=== PATIENT | male | born 1940 ===

== ENCOUNTER 2019-08-05 09:58 | Inpatient (IN) | payer OTHER ==
[2019-08-05] MEDS ORDERED: CEFTRIAXONE 1,000 MG in DEXTROSE 5%-WATER - 50 ML IVPB ONE (10:40)
[2019-08-05] MEDS ORDERED: CLINDAMYCIN IVPB 300 MG in DEXTROSE 5%-WATER - 48 ML IVPB ONE (10:40)
--- NOTE | 2019-08-05 11:18 | PDOC ---
Documentation entered by Serene Braun SCRIBE, acting as scribe for Yobany Avila MD. Yobany Avila MD: This documentation has been prepared by the Aparna walker Nirvannie, SCRIBE, under my direction and personally reviewed by me in its entirety. I confirm that the documentation accurately reflects all work, treatment, procedures, and medical decision making performed by me. History of Present Illness - General Chief Complaint: Shortness of Breath Stated Complaint: SENT BY PMD LUNG ABSCESS History Source: Patient, Family (Son.), Primary Care Provider (Dr. Narayan) Exam Limitations: No Limitations - History of Present Illness Initial Comments: 08/05/19 10:56 The patient is a 79 year old male, with a significant past medical history of DM , HTN, hypothyroidism, and recurrent pneumonia (last treated 1 month ago), who presents to the emergency department for abnormal CT scan. As per PCP Dr. Narayan , pt had CT chest 2 weeks ago demonstrating possible abscess. While in the ED, son notes intermittent cough but no acute complaints today. He denies any recent fevers, chills, headache or dizziness. No hemoptysis. He denies any recent nausea, vomit, diarrhea or constipation. He denies any recent chest pain or shortness of breath. He denies any recent dysuria, frequency, urgency or hematuria. PCP notes that pt recently traveled to [place] and has had recent weight loss. Allergies: [facility] Primary Care Physician: Catalina Atwood Past History - Past Medical History Allergies/Adverse Reactions: Allergies Allergy/AdvReac Type Severity Reaction Status Date / Time No Known Allergies Allergy Verified 08/05/19 10:09 Home Medications: Ambulatory Orders Aspirin [Aspirin EC] 81 mg PO DAILY 08/05/19 Diclofenac Sodium 50 mg PO DAILY 08/05/19 Ferrous Sulfate [Iron] 325 mg PO DAILY 08/05/19 Levothyroxine Sodium [Levoxyl] 50 mcg PO DAILY 08/05/19 Losartan Potassium 50 mg PO DAILY 08/05/19 Metoprolol Succinate 25 mg PO DAILY 08/05/19 Multivitamin [Multiple Vitamins] 1 each PO DAILY 08/05/19 Promethazine HCl 6.25 mg PO QID 08/05/19 metFORMIN HCL [Metformin ER Osmotic] 1,000 mg PO DAILY 08/05/19 COPD: No Diabetes: Yes HTN: Yes Thyroid Disease: Yes - Psycho Social/Smoking Cessation Hx Smoking History: Never smoked Information on smoking cessation initiated: No Hx Alcohol Use: No Drug/Substance Use Hx: No Review of Systems - Review of Systems Able to Perform ROS?: Yes Comments:: 08/05/19 11:14 GENERAL/CONSTITUTIONAL: No fever or chills. No weakness. HEAD, EYES, EARS, NOSE AND THROAT: No change in vision. No ear pain or discharge. No sore throat. CARDIOVASCULAR: No chest pain, no shortness of breath, no loss of consciousness RESPIRATORY: +Intermittent cough. No wheezing, or hemoptysis. GASTROINTESTINAL: No nausea, vomiting, diarrhea or constipation. GENITOURINARY: No dysuria, frequency, or change in urination. MUSCULOSKELETAL: No joint or muscle swelling or pain. No neck or back pain. SKIN: No rash NEUROLOGIC: No vertigo, no change in strength/sensation. ENDOCRINE: No increased thirst. No abnormal weight change. HEMATOLOGIC/LYMPHATIC: No anemia, easy bleeding, or history of blood clots. ALLERGIC/IMMUNOLOGIC: No hives or skin allergy. All Other Systems: Reviewed and Negative *Physical Exam - Vital Signs Last Vital Signs Temp Pulse Resp BP Pulse Ox 97.6 F 108 H 18 178/72 H 99 08/05/19 10:06 08/05/19 10:06 08/05/19 10:06 08/05/19 10:06 08/05/19 10:06 - Physical Exam Comments: 08/05/19 11:15 GENERAL: Awake, alert, and fully oriented, in no acute distress. HEAD: No signs of trauma EYES: PERRLA, EOMI, sclera anicteric, conjunctiva clear ENT: Auricles normal inspection, hearing grossly normal, nares patent, oropharynx clear without exudates. Moist mucosa NECK: Nontender, no stepoffs, Normal ROM, supple, no lymphadenopathy, JVD, or masses LUNGS: + R sided rhonchi HEART: Regular rate and rhythm, normal S1 and S2, no murmurs, rubs or gallops ABDOMEN: Soft, nontender, normoactive bowel sounds. No guarding, no rebound. No masses EXTREMITIES: Normal range of motion, no edema. No clubbing or cyanosis. No cords, erythema, or tenderness NEUROLOGICAL: Cranial nerves II through XII intact. 5/5 strength and sensation in all extremities, Normal speech, normal gait, normal cerebellar function SKIN: Warm, Dry, normal turgor, no rashes or lesions noted. ED Treatment Course - LABORATORY CBC & Chemistry Diagram: 08/05/19 10:55 08/05/19 10:55 Medical Decision Making - Medical Decision Making 08/05/19 11:20 79 M with abnormal outpt CT, concerning for possible lung abscess. Pt also noted to have recent weight loss and travel to [place]. Will need to r/o TB. - Labs, cultures, AFB - Repeat CT chest - Empiric abx - ID, pulm consult Discharge - Discharge Information Problems reviewed: Yes Clinical Impression/Diagnosis: Cavitary lesion of lung - Admission Yes - Follow up/Referral Referrals: Evelyn Narayan MD [Primary Care Provider] - - Patient Discharge Instructions - Post Discharge Activity
[2019-08-05 11:42] LABS: EOS % 4.4 % (0-4.5); HEMATOCRIT 37.3 % (35.4-49); HEMOGLOBIN 11.9 GM/dL (11.7-16.9); LYMPH % 15.5 % (8-40); MCH 24.7 pg (25.7-33.7); MEAN CELL VOLUME 77.1 fl (80-96); MEAN PLT VOLUME 8.6 fl (7.5-11.1); MONO % 7.7 % (3.8-10.2); NEUT % 71.4 % (42.8-82.8); PLATELET COUNT 324 K/MM3 (134-434); RBC 4.84 M/mm3 (4.00-5.60); RDW 20.4 % (11.9-15.9); WHITE BLOOD COUNT 10.1 K/mm3 (4.0-10.0)
--- NOTE | 2019-08-05 12:16 | EKG ---
Test Reason : Blood Pressure : / mmHG Vent. Rate : 097 BPM Atrial Rate : 097 BPM P-R Int : 140 ms QRS Dur : 078 ms QT Int : 328 ms P-R-T Axes : 060 -41 064 degrees QTc Int : 416 ms NORMAL SINUS RHYTHM LEFT AXIS DEVIATION ABNORMAL ECG NO PREVIOUS ECGS AVAILABLE Confirmed by LISA MADRID, LAURA ([id number]) on 08/05/2019 12:16:44 PM Referred By: Confirmed By:LAURA GONZALEZ MD
[2019-08-05 12:22] LABS: ALBUMIN 3.4 g/dl (3.4-5.0); BILIRUBIN,TOTAL 0.2 mg/dL (0.2-1); BLOOD UREA NITROGEN 29.4 mg/dL (7-18); CALCIUM 10.7 mg/dL (8.5-10.1); CREATININE 1.2 mg/dL (0.55-1.3); N-TERMINAL BNP 194.6 pg/ml (5-450); TOT PROT 7.8 g/dl (6.4-8.2)
[2019-08-05] MEDS ORDERED: CEFTRIAXONE 1 GM/50 ML BAG ONE (12:22)
[2019-08-05] MEDS ORDERED: CLINDAMYCIN PHOSPHATE 600 MG/4 ML VIAL ONE (13:01)
[2019-08-05] MEDS ORDERED: SODIUM CHLORIDE 1,000 ML IV STA (13:29)
--- NOTE | 2019-08-05 17:40 | HP ---
Admitting History and Physical - Primary Care Physician PCP: Evelyn Narayan - Admission Chief Complaint: cough History of Present Illness: was treated for right middle/lower lobe pna with ceftin and zithromax in May 2019 came back to office for persistent cough-chest ct showed cavitation was sent to er for evaluation and treatment History Source: Patient, Family Member Limitations to Obtaining History: Language Barrier - Past Medical History Cardiovascular: Yes: HTN, Hyperlipdemia Endocrine: Yes: Diabetes Mellitus, Hypothyroidism - Smoking History Smoking history: Never smoked - Alcohol/Substance Use Hx Alcohol Use: No - Social History Usual Living Arrangement: Yes: With Child ADL: Independent History of Recent Travel: Yes ([place]) Home Medications - Allergies Allergies/Adverse Reactions: Allergies Allergy/AdvReac Type Severity Reaction Status Date / Time No Known Allergies Allergy Verified 08/05/19 10:09 - Home Medications Home Medications: Ambulatory Orders Aspirin [Aspirin EC] 81 mg PO DAILY 08/05/19 Diclofenac Sodium 50 mg PO DAILY 08/05/19 Ferrous Sulfate [Iron] 325 mg PO DAILY 08/05/19 Levothyroxine Sodium [Levoxyl] 50 mcg PO DAILY 08/05/19 Losartan Potassium 50 mg PO DAILY 08/05/19 Metoprolol Succinate 25 mg PO DAILY 08/05/19 Multivitamin [Multiple Vitamins] 1 each PO DAILY 08/05/19 Promethazine HCl 6.25 mg PO QID 08/05/19 metFORMIN HCL [Metformin ER Osmotic] 1,000 mg PO DAILY 08/05/19 Family Medical History Family History: Unremarkable Review of Systems - Review of Systems Constitutional: reports: Loss of Appetite (recently got new dentures). denies: Chills, Fever HENT: reports: No Symptoms Neck: reports: No Symptoms Cardiovascular: reports: No Symptoms Respiratory: reports: Cough. denies: Hemoptysis, SOB on Exertion, Wheezing Gastrointestinal: reports: No Symptoms Genitourinary: reports: No Symptoms Integumentary: reports: No Symptoms Neurological: reports: No Symptoms Endocrine: reports: No Symptoms Hematology/Lymphatic: reports: No Symptoms Psychiatric: reports: No Symptoms Physical Examination Vital Signs: Vital Signs Temperature 97.6 F 08/05/19 10:06 Pulse Rate 108 H 08/05/19 10:06 Respiratory Rate 18 08/05/19 10:06 Blood Pressure 178/72 H 08/05/19 10:06 O2 Sat by Pulse Oximetry (%) 99 08/05/19 10:06 Constitutional: Yes: Well Nourished, Calm Eyes: Yes: EOM Intact HENT: Yes: WNL, Other (hard of hearing) Neck: Yes: WNL Cardiovascular: Yes: WNL, Regular Rate and Rhythm Respiratory: Yes: Rhonchi (scattered) Gastrointestinal: Yes: Normal Bowel Sounds, Soft ...Rectal Exam: Yes: WNL Renal/: Yes: WNL Musculoskeletal: Yes: WNL Extremities: Yes: WNL Edema: No Peripheral Pulses WNL: Yes Neurological: Yes: WNL ...Motor Strength: WNL Psychiatric: Yes: WNL Labs: CBC, BMP 08/05/19 10:55 08/05/19 10:55 lactic acid 4.7 Imaging - Results Cat Scan: Report Reviewed Problem List - Problems (1) Diabetes mellitus Code(s): E11.9 - TYPE 2 DIABETES MELLITUS WITHOUT COMPLICATIONS Qualifiers: Diabetes mellitus type: type 2 Diabetes mellitus regional intermodal truck driver insulin use: without regional intermodal truck driver use Diabetes mellitus complication status: without complication Qualified Code(s): E11.9 - Type 2 diabetes mellitus without complications (2) HTN (hypertension) Code(s): I10 - ESSENTIAL (PRIMARY) HYPERTENSION Qualifiers: Hypertension type: essential hypertension Qualified Code(s): I10 - Essential (primary) hypertension (3) Hyperlipidemia Code(s): E78.5 - HYPERLIPIDEMIA, UNSPECIFIED Qualifiers: Hyperlipidemia type: unspecified Qualified Code(s): E78.5 - Hyperlipidemia , unspecified (4) Hypothyroidism Code(s): E03.9 - HYPOTHYROIDISM, UNSPECIFIED Qualifiers: Hypothyroidism type: acquired Qualified Code(s): E03.9 - Hypothyroidism, unspecified (5) Cavitary lesion of lung Code(s): J98.4 - OTHER DISORDERS OF LUNG Assessment/Plan caviatating lung disease abscess vs tb vs malignancy isolation for tb sputum culture sputum afb may need bronch if not sputum production iv xzosyn for now id and pulm referral requested
[2019-08-05] MEDS ORDERED: PIPERACILLIN/TAZOB 3.375 GM 3.375 GM in DEXTROSE 5%-WATER - 50 ML IVPB SCH (18:00)
[2019-08-05] MEDS ORDERED: PIPERACILLIN/TAZOB 3.375 GM 3.375 GM/50 ML BAG IVPB ONE (18:21)
[2019-08-05] MEDS: PIPERACILLIN/TAZOB 3.375 GM 3.375 GM in DEXTROSE 5%-WATER - 50 ML IVPB SCH (18:31)
[2019-08-06] MEDS ORDERED: PIPERACILLIN/TAZOBACTAM 3.375 GM VIAL IVPB ONE ×2 (01:42→09:48)
[2019-08-06] MEDS ORDERED: DEXTROSE 5%-WATER - 50 ML IVPB ONE ×2 (01:43→09:48)
[2019-08-06] MEDS: PIPERACILLIN/TAZOB 3.375 GM 3.375 GM in DEXTROSE 5%-WATER - 50 ML IVPB SCH ×2 (02:21→09:54)
[2019-08-06] MEDS: LEVOTHYROXINE NA 50 MCG TABLET (FP) PO SCH (06:14)
[2019-08-06 09:12] LABS: BASO % 1.3 % (0-2.0); HEMATOCRIT 36.6 % (35.4-49); HEMOGLOBIN 11.8 GM/dL (11.7-16.9); LYMPH % 17.3 % (8-40); MCH 24.4 pg (25.7-33.7); MCHC 32.2 g/dl (32.0-35.9); MEAN CELL VOLUME 75.9 fl (80-96); MEAN PLT VOLUME 8.5 fl (7.5-11.1); MONO % 7.2 % (3.8-10.2); NEUT % 67.2 % (42.8-82.8); PLATELET COUNT 334 K/MM3 (134-434); RBC 4.83 M/mm3 (4.00-5.60); RDW 19.7 % (11.9-15.9); WHITE BLOOD COUNT 8.3 K/mm3 (4.0-10.0)
[2019-08-06] MEDS ORDERED: PT OWN MED DRAWER 7, Y5N ONE (09:48)
--- NOTE | 2019-08-06 09:48 | PN ---
Progress Note (short form) - Note Progress Note: admitted for cough, cavitating lung lesion/infiltrates offers no complaints CBC, BMP 08/06/19 07:00 08/06/19 07:00 Vital Signs Period Temp Pulse Resp BP Sys/Garces Pulse Ox Last 24 Hr 97.7 F-99.1 F 81-88 18-20 146-166/73-99 97-98 s1s2 rrr lungs coarse bilateral bs abd soft no edema r/o TB, r/o malignancy sputum cultures/afb ? bronch zosyn for now Problem List - Problems (1) Diabetes mellitus Code(s): E11.9 - TYPE 2 DIABETES MELLITUS WITHOUT COMPLICATIONS Qualifiers: Diabetes mellitus type: type 2 Diabetes mellitus intermediate manager insulin use: without intermediate manager use Diabetes mellitus complication status: without complication Qualified Code(s): E11.9 - Type 2 diabetes mellitus without complications (2) HTN (hypertension) Code(s): I10 - ESSENTIAL (PRIMARY) HYPERTENSION Qualifiers: Hypertension type: essential hypertension Qualified Code(s): I10 - Essential (primary) hypertension (3) Hyperlipidemia Code(s): E78.5 - HYPERLIPIDEMIA, UNSPECIFIED Qualifiers: Hyperlipidemia type: unspecified Qualified Code(s): E78.5 - Hyperlipidemia , unspecified (4) Hypothyroidism Code(s): E03.9 - HYPOTHYROIDISM, UNSPECIFIED Qualifiers: Hypothyroidism type: acquired Qualified Code(s): E03.9 - Hypothyroidism, unspecified (5) Cavitary lesion of lung Code(s): J98.4 - OTHER DISORDERS OF LUNG
[2019-08-06] MEDS: metoPROLOL SUCCINATE 25 MG TAB.SR.24H (FP) PO SCH (09:54)
[2019-08-06] MEDS: MULTIVITAMINS (DAILY MVI) TABLET (FP) PO SCH (09:54)
[2019-08-06] MEDS: LOSARTAN POTASSIUM 50 MG TABLET (FP) PO SCH (09:54)
[2019-08-06 09:59] LABS: ALBUMIN 3.3 g/dl (3.4-5.0); BILIRUBIN,TOTAL 0.3 mg/dL (0.2-1); BLOOD UREA NITROGEN 16.7 mg/dL (7-18); CALCIUM 10.1 mg/dL (8.5-10.1); CREATININE 1.1 mg/dL (0.55-1.3); POTASSIUM 4.4 mmol/L (3.5-5.1); TOT PROT 7.7 g/dl (6.4-8.2)
--- NOTE | 2019-08-06 13:26 | CON.PULM ---
Consult Consult Specialty:: PULMONARY Referred by:: Dr Orellana Reason for Consultation:: lung mass - History of Present Illness Chief Complaint: abnormal CT History of Present Illness: 79yo male with h/o HTN, DM, hypothyroidism who was sent from his PMD for an abnormal CT chest. He was treated for pneumonia about a month ago. Denies fevers , chills or sweats. Pt is from [place] with recent travel. Does report recent weight loss. CT chest showing RLL cavitary lesion as well as lung nodules. He is a never smoker. - History Source History Provided By: Patient, Family Member, Medical Record Limitations to Obtaining History: Language Barrier - Past Medical History Cardio/Vascular: Yes: HTN, Hyperlipdemia Endocrine: Yes: Diabetes Mellitus, Hypothyroidism - Alcohol/Substance Use Hx Alcohol Use: No - Smoking History Smoking history: Never smoked - Social History ADL: Independent History of Recent Travel: Yes ([facility]) Home Medications - Allergies Allergies/Adverse Reactions: Allergies Allergy/AdvReac Type Severity Reaction Status Date / Time No Known Allergies Allergy Verified 08/05/19 10:09 - Home Medications Home Medications: Ambulatory Orders Aspirin [Aspirin EC] 81 mg PO DAILY 08/05/19 Diclofenac Sodium 50 mg PO DAILY 08/05/19 Ferrous Sulfate [Iron] 325 mg PO DAILY 08/05/19 Levothyroxine Sodium [Levoxyl] 50 mcg PO DAILY 08/05/19 Losartan Potassium 50 mg PO DAILY 08/05/19 Metoprolol Succinate 25 mg PO DAILY 08/05/19 Multivitamin [Multiple Vitamins] 1 each PO DAILY 08/05/19 Promethazine HCl 6.25 mg PO QID 08/05/19 metFORMIN HCL [Metformin ER Osmotic] 1,000 mg PO DAILY 08/05/19 Review of Systems - Review of Systems Constitutional: reports: Unintentional Wgt. Loss. denies: Chills, Fever Eyes: denies: Recent Change in Vision HENT: denies: Nasal Congestion, Throat Pain Neck: denies: Stiffness, Tenderness Cardiovascular: denies: Chest Pain, Shortness of Breath Respiratory: reports: Cough. denies: Hemoptysis, Wheezing Gastrointestinal: denies: Abdominal Pain, Nausea, Vomiting Genitourinary: denies: Dysuria, Hematuria Neurological: denies: Dizziness, Headache Endocrine: denies: Unexplained Weight Loss Physical Exam Vital Sings: Vital Signs Temperature 98.1 F 08/06/19 08:40 Pulse Rate 85 08/06/19 08:40 Respiratory Rate 20 08/06/19 08:40 Blood Pressure 150/77 08/06/19 08:40 O2 Sat by Pulse Oximetry (%) 98 08/05/19 21:00 Constitutional: Yes: Calm Eyes: Yes: Conjunctiva Clear, EOM Intact HENT: Yes: Atraumatic, Normocephalic Neck: Yes: Supple, Trachea Midline Cardiovascular: Yes: Regular Rate and Rhythm Respiratory: Yes: Diminished (decreased breath sounds at the bases) ...Clubbing: No Gastrointestinal: Yes: Normal Bowel Sounds, Soft. 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
--- NOTE | 2019-08-06 14:59 | CON.ID ---
Consult Reason for Consultation:: r/o lung abscess - History of Present Illness Chief Complaint: abnormal lung CT, hx of pneumonia History of Present Illness: Mr. Bueno is a 79y/o Tamazight-speaking male with hx of pneumonia (May 2019 and 3-4 months prior), HTN, HLD, DM, and hypothyroidism who presents following right pulmonary cavitary lesion. Pt was diagnosed with RML and RLL pneumonia and treated with ceftin and zithromax in May and f/u CT showed cavitary lesion. The patient reports having a very mild, non-productive cough x 5 months that he attributes to poorly-fitting dentures. He also reports ~10 lb weight loss from this as well because he is unable to eat. Pt denies fever, chills, fatigue, shortness of breath, wheezing, myalgias, n/v/d. Pt lives at home with his son. His within the last year from ILD. Per son, there was no known reason for ILD. Pt worked in [employer] department with no exposure to dangerous chemicals. His recent travel includes going to [place] following 's passing. He had URI symptoms while in [place] but was not significant. - History Source History Provided By: Patient, Family Member Limitations to Obtaining History: Other (spoke with patient and chief nursing officer in person and with son over the phone) - Past Medical History Cardio/Vascular: Yes: HTN, Hyperlipdemia Endocrine: Yes: Diabetes Mellitus, Hypothyroidism - Past Surgical History Past Surgical History: Yes: None - Alcohol/Substance Use Hx Alcohol Use: No - Smoking History Smoking history: Never smoked - Social History Usual Living Arrangement: With Child ADL: Independent History of Recent Travel: Yes ([place]) Home Medications - Allergies Allergies/Adverse Reactions: Allergies Allergy/AdvReac Type Severity Reaction Status Date / Time No Known Allergies Allergy Verified 08/05/19 10:09 - Home Medications Home Medications: Ambulatory Orders Aspirin [Aspirin EC] 81 mg PO DAILY 08/05/19 Diclofenac Sodium 50 mg PO DAILY 08/05/19 Ferrous Sulfate [Iron] 325 mg PO DAILY 08/05/19 Levothyroxine Sodium [Levoxyl] 50 mcg PO DAILY 08/05/19 Losartan Potassium 50 mg PO DAILY 08/05/19 Metoprolol Succinate 25 mg PO DAILY 08/05/19 Multivitamin [Multiple Vitamins] 1 each PO DAILY 08/05/19 Promethazine HCl 6.25 mg PO QID 08/05/19 metFORMIN HCL [Metformin ER Osmotic] 1,000 mg PO DAILY 08/05/19 Review of Systems - Review of Systems Constitutional: denies: Chills, Fever HENT: reports: Other (ill-fitting dentures) Respiratory: reports: Cough. denies: SOB, Wheezing Gastrointestinal: denies: Abdominal Pain, Diarrhea, Nausea, Vomiting Musculoskeletal: denies: Joint Pain, Muscle Pain Physical Exam Vital Signs: Vital Signs Temperature 98.1 F 08/06/19 08:40 Pulse Rate 85 08/06/19 08:40 Respiratory Rate 20 08/06/19 08:40 Blood Pressure 150/77 08/06/19 08:40 O2 Sat by Pulse Oximetry (%) 98 08/05/19 21:00 Constitutional: Yes: No Distress, Thin, Other (temporal wasting) Eyes: Yes: Conjunctiva Clear, EOM Intact HENT: Yes: Atraumatic, Normocephalic Neck: Yes: Supple, Trachea Midline Cardiovascular: Yes: Regular Rate and Rhythm. No: Murmur Respiratory: Yes: Wheezes (upper airways R>L) Gastrointestinal: Yes: Normal Bowel Sounds, Soft. No: Tenderness Neurological: Yes: Alert, Oriented Labs: CBC, BMP 08/06/19 07:00 08/06/19 07:00 Imaging - Results Cat Scan: Report Reviewed (thick-walled cavity in right hilar region (infectious /inflammatory vs neoplasm), diffuse nodules in right lower lobe which could be bronchial spread of the cavitary lesion), Image Reviewed Assessment/Plan Mr. Bueno is a 79y/o Tamazight-speaking male with hx of pneumonia (May 2019 -treated with ceftin and zithromax, and 3-4 months prior), HTN, HLD, DM, and hypothyroidism who presents following right pulmonary cavitary lesion on CT. Pt reports poorly fitting dentures with difficulty eating. Pt has traveled to [place] in the last year. He denies hx of TB. #aspiration pneumonia vs r/o TB -sputum cx- induce sputum production for sample -Quantiferon pending -empiric Unasyn
--- NOTE | 2019-08-06 16:36 | PN ---
Teaching Attending Note Name of Resident: Anisa Byrne ATTENDING PHYSICIAN STATEMENT I saw and evaluated the patient. I reviewed the resident's note and discussed the case with the resident. I agree with the resident's findings and plan as documented. SUBJECTIVE: tried to use the interpretor phone for [employer]- patient would not cooperate weight loss 10 pounds diabetes ill fitting dentures a trip to [facility] this past year nonproductive cough ceftin/zithromax for 7 days in may no fevers OBJECTIVE:alert nad Vital Signs Period Temp Pulse Resp BP Sys/Garces Pulse Ox Last 24 Hr 97.5 F-99.1 F 81-96 18-20 132-166/70-99 97-98 no thrush no adenopathyl cor-rrr lungs clear abd soft,nt ext no edema no rash CBC, BMP 08/06/19 07:00 08/06/19 07:00 blood cultures pending chest ct with cavitary and nodular lesions ASSESSMENT AND PLAN: abnormal chest ct-with cavitary and nodular lesions differential diagnosis- includes TB, aspiration pneumonia, and malignancy plan for quantiferon sputum afb by induction uasyn for aspiration history of diabetes will d/w PMD Problem List - Problems (1) Abnormal CT scan, chest Code(s): R93.89 - ABNORMAL FINDINGS ON DX IMAGING OF OTH BODY STRUCTURES (2) Cavitary lesion of lung Code(s): J98.4 - OTHER DISORDERS OF LUNG (3) Diabetes mellitus Code(s): E11.9 - TYPE 2 DIABETES MELLITUS WITHOUT COMPLICATIONS Qualifiers: Diabetes mellitus type: type 2 Diabetes mellitus moth exterminator insulin use: without moth exterminator use Diabetes mellitus complication status: without complication Qualified Code(s): E11.9 - Type 2 diabetes mellitus without complications
[2019-08-06] MEDS ORDERED: AMPICILLIN NA/SULBACTAM NA 1.5 GM VIAL ONE ×2 (16:55→20:45)
[2019-08-06] MEDS ORDERED: SODIUM CHLORIDE 100 ML IVPB ONE ×2 (16:55→20:45)
[2019-08-06] MEDS: AMPICILLIN NA/SULBACTAM NA 1.5 GM in SODIUM CHLORIDE 100 ML IVPB SCH ×2 (17:03→21:27)
[2019-08-07] MEDS ORDERED: AMPICILLIN NA/SULBACTAM NA 1.5 GM VIAL ONE ×4 (01:18→20:01)
[2019-08-07] MEDS ORDERED: SODIUM CHLORIDE 100 ML IVPB ONE ×4 (01:19→20:02)
[2019-08-07] MEDS: AMPICILLIN NA/SULBACTAM NA 1.5 GM in SODIUM CHLORIDE 100 ML IVPB SCH ×4 (02:12→21:20)
[2019-08-07] MEDS ORDERED: PT OWN MED DRAWER 7, Y5N ONE ×2 (05:54→09:33)
[2019-08-07] MEDS: LEVOTHYROXINE NA 50 MCG TABLET (FP) PO SCH (06:30)
[2019-08-07] MEDS ORDERED: SODIUM CHLORIDE FOR INHALATION 3 ML VIAL.NEB IH PRN (08:07)
--- NOTE | 2019-08-07 08:43 | PN ---
Progress Note (short form) - Note Progress Note: CBC, BMP 08/06/19 07:00 08/06/19 07:00 Vital Signs Period Temp Pulse Resp BP Sys/Garces Pulse Ox Last 24 Hr 97.5 F-98.4 F 83-96 20-20 132-150/70-79 No complaints, minimal sputum production s1s2 rrr lungs coarse bilateral bs abd soft no edema Active Medications Ampicillin Sodium/Sulbactam (Sodium 1.5 gm/ Sodium Chloride) 100 mls @ 200 mls/ hr IVPB Q6H-IV SHANTHI Last Admin: 08/07/19 02:12 Dose: 200 mls/hr Levothyroxine Sodium (Synthroid -) 50 mcg PO AM SHANTHI Last Admin: 08/07/19 06:30 Dose: 50 mcg Losartan Potassium (Cozaar -) 50 mg PO DAILY SHANTHI Last Admin: 08/06/19 09:54 Dose: 50 mg Metformin HCl (Glucophage Xr -) 1,000 mg PO AM SHANTHI Last Admin: 08/07/19 06:30 Dose: 1,000 mg Metoprolol Succinate (Toprol Xl -) 25 mg PO DAILY SHANTHI Last Admin: 08/06/19 09:54 Dose: 25 mg Multivitamins/Minerals/Vitamin C (Tab-A-Vit -) 1 tab PO DAILY SHANTHI Last Admin: 08/06/19 09:54 Dose: 1 tab Sodium Chloride (Normal Saline For Inhalation -) 3 ml IH Q6H PRN PRN Reason: COUGH r/o TB, r/o malignancy sputum cultures/afb ? bronch-i think patient is more amenable, will ask dr cavanaugh to talk to them over the weekend consult appreciated NIDDM hypothyrodism HTN cont home meds isolation Problem List - Problems (1) Diabetes mellitus Code(s): E11.9 - TYPE 2 DIABETES MELLITUS WITHOUT COMPLICATIONS Qualifiers: Diabetes mellitus type: type 2 Diabetes mellitus long term acute care registered nurse insulin use: without long term acute care registered nurse use Diabetes mellitus complication status: without complication Qualified Code(s): E11.9 - Type 2 diabetes mellitus without complications (2) HTN (hypertension) Code(s): I10 - ESSENTIAL (PRIMARY) HYPERTENSION Qualifiers: Hypertension type: essential hypertension Qualified Code(s): I10 - Essential (primary) hypertension (3) Hyperlipidemia Code(s): E78.5 - HYPERLIPIDEMIA, UNSPECIFIED Qualifiers: Hyperlipidemia type: unspecified Qualified Code(s): E78.5 - Hyperlipidemia , unspecified (4) Hypothyroidism Code(s): E03.9 - HYPOTHYROIDISM, UNSPECIFIED Qualifiers: Hypothyroidism type: acquired Qualified Code(s): E03.9 - Hypothyroidism, unspecified (5) Cavitary lesion of lung Code(s): J98.4 - OTHER DISORDERS OF LUNG
[2019-08-07] MEDS: metoPROLOL SUCCINATE 25 MG TAB.SR.24H (FP) PO SCH (09:39)
[2019-08-07] MEDS: LOSARTAN POTASSIUM 50 MG TABLET (FP) PO SCH (09:39)
[2019-08-07] MEDS: MULTIVITAMINS (DAILY MVI) TABLET (FP) PO SCH (09:39)
--- NOTE | 2019-08-07 13:49 | PN ---
Progress Note, Physician History of Present Illness: pulmonary alert,comfortable,nad. pt agrees to bronchoscopy - Current Medication List Current Medications: Active Medications Ampicillin Sodium/Sulbactam (Sodium 1.5 gm/ Sodium Chloride) 100 mls @ 200 mls/ hr IVPB Q6H-IV [facility] Last Admin: 08/07/19 09:38 Dose: 200 mls/hr Levothyroxine Sodium (Synthroid -) 50 mcg PO AM [facility] Last Admin: 08/07/19 06:30 Dose: 50 mcg Losartan Potassium (Cozaar -) 50 mg PO DAILY [facility] Last Admin: 08/07/19 09:39 Dose: 50 mg Metformin HCl (Glucophage Xr -) 1,000 mg PO AM [facility] Last Admin: 08/07/19 06:30 Dose: 1,000 mg Metoprolol Succinate (Toprol Xl -) 25 mg PO DAILY [facility] Last Admin: 08/07/19 09:39 Dose: 25 mg Multivitamins/Minerals/Vitamin C (Tab-A-Vit -) 1 tab PO DAILY [facility] Last Admin: 08/07/19 09:39 Dose: 1 tab Sodium Chloride (Normal Saline For Inhalation -) 3 ml IH Q6H PRN PRN Reason: COUGH - Objective Vital Signs: Vital Signs Temperature 98.1 F 08/07/19 08:30 Pulse Rate 90 08/07/19 08:30 Respiratory Rate 20 08/07/19 08:30 Blood Pressure 145/78 08/07/19 08:30 O2 Sat by Pulse Oximetry (%) 98 08/05/19 21:00 Constitutional: Yes: Calm, Thin Eyes: Yes: WNL HENT: Yes: WNL Neck: Yes: WNL Cardiovascular: Yes: Regular Rate and Rhythm, S1, S2 Respiratory: Yes: Diminished Gastrointestinal: Yes: Normal Bowel Sounds, Soft Extremities: Yes: WNL Edema: No Labs: CBC, BMP Problem List - Problems (1) Cavitary lesion of lung Code(s): J98.4 - OTHER DISORDERS OF LUNG (2) Diabetes mellitus Code(s): E11.9 - TYPE 2 DIABETES MELLITUS WITHOUT COMPLICATIONS Qualifiers: Diabetes mellitus type: type 2 Diabetes mellitus exterminator helper termite insulin use: without exterminator helper termite use Diabetes mellitus complication status: without complication Qualified Code(s): E11.9 - Type 2 diabetes mellitus without complications (3) HTN (hypertension) Code(s): I10 - ESSENTIAL (PRIMARY) HYPERTENSION Qualifiers: Hypertension type: essential hypertension Qualified Code(s): I10 - Essential (primary) hypertension (4) Hyperlipidemia Code(s): E78.5 - HYPERLIPIDEMIA, UNSPECIFIED Qualifiers: Hyperlipidemia type: unspecified Qualified Code(s): E78.5 - Hyperlipidemia , unspecified (5) Hypothyroidism Code(s): E03.9 - HYPOTHYROIDISM, UNSPECIFIED Qualifiers: Hypothyroidism type: acquired Qualified Code(s): E03.9 - Hypothyroidism, unspecified Assessment/Plan Assessment/Plan 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
--- NOTE | 2019-08-07 15:52 | PN ---
Progress Note (short form) - Note Progress Note: refusing induced sputum for AFB agreeable to bronch on Saturday Vital Signs Period Temp Pulse Resp BP Sys/Garces Pulse Ox Last 24 Hr 98.1 F-98.5 F 83-95 20-20 104-150/57-79 cor-rrr lungs clear CBC, BMP 08/06/19 07:00 08/06/19 07:00 Microbiology 08/05/19 10:55 Blood - Peripheral Venous Blood Culture - Preliminary NO GROWTH OBTAINED AFTER 48 HOURS, INCUBATION TO CONTINUE FOR 3 DAYS. 08/05/19 10:55 Blood - Peripheral Venous Blood Culture - Preliminary NO GROWTH OBTAINED AFTER 48 HOURS, INCUBATION TO CONTINUE FOR 3 DAYS. a/p cavitary/nodular infiltrates- on unasyn for aspiration quant pending sputum induction if patient permits bronchoscopy on Saturday afb isolation to continue Problem List - Problems (1) Abnormal CT scan, chest Code(s): R93.89 - ABNORMAL FINDINGS ON DX IMAGING OF OTH BODY STRUCTURES (2) Cavitary lesion of lung Code(s): J98.4 - OTHER DISORDERS OF LUNG (3) Diabetes mellitus Code(s): E11.9 - TYPE 2 DIABETES MELLITUS WITHOUT COMPLICATIONS Qualifiers: Diabetes mellitus type: type 2 Diabetes mellitus intermediate insulin use: without immunologist use Diabetes mellitus complication status: without complication Qualified Code(s): E11.9 - Type 2 diabetes mellitus without complications
[2019-08-08] MEDS ORDERED: AMPICILLIN NA/SULBACTAM NA 1.5 GM VIAL ONE ×4 (02:26→21:14)
[2019-08-08] MEDS ORDERED: SODIUM CHLORIDE 100 ML IVPB ONE ×4 (02:26→21:15)
[2019-08-08] MEDS: AMPICILLIN NA/SULBACTAM NA 1.5 GM in SODIUM CHLORIDE 100 ML IVPB SCH ×4 (02:44→21:46)
[2019-08-08] MEDS ORDERED: PT OWN MED DRAWER 7, Y5N ONE (06:12)
[2019-08-08] MEDS: LEVOTHYROXINE NA 50 MCG TABLET (FP) PO SCH (06:38)
[2019-08-08] MEDS: MULTIVITAMINS (DAILY MVI) TABLET (FP) PO SCH (09:25)
[2019-08-08] MEDS: metoPROLOL SUCCINATE 25 MG TAB.SR.24H (FP) PO SCH (09:25)
[2019-08-08] MEDS: LOSARTAN POTASSIUM 50 MG TABLET (FP) PO SCH (09:25)
[2019-08-08] MEDS ORDERED: INSULIN (NOVOLOG) ASPART 100 UNITS/ML 10ML VIAL ONE (09:43)
--- NOTE | 2019-08-08 14:31 | PN ---
Progress Note, Physician History of Present Illness: pulmonary alert,no distress. - Current Medication List Current Medications: Active Medications Ampicillin Sodium/Sulbactam (Sodium 1.5 gm/ Sodium Chloride) 100 mls @ 200 mls/ hr IVPB Q6H-IV [facility] Last Admin: 08/08/19 08:48 Dose: 200 mls/hr Levothyroxine Sodium (Synthroid -) 50 mcg PO AM [facility] Last Admin: 08/08/19 06:38 Dose: 50 mcg Losartan Potassium (Cozaar -) 50 mg PO DAILY [facility] Last Admin: 08/08/19 09:25 Dose: 50 mg Metformin HCl (Glucophage Xr -) 1,000 mg PO AM [facility] Last Admin: 08/08/19 06:38 Dose: 1,000 mg Metoprolol Succinate (Toprol Xl -) 25 mg PO DAILY [facility] Last Admin: 08/08/19 09:25 Dose: 25 mg Multivitamins/Minerals/Vitamin C (Tab-A-Vit -) 1 tab PO DAILY [facility] Last Admin: 08/08/19 09:25 Dose: 1 tab Sodium Chloride (Normal Saline For Inhalation -) 3 ml IH Q6H PRN PRN Reason: COUGH - Objective Vital Signs: Vital Signs Temperature 98.4 F 08/08/19 10:00 Pulse Rate 88 08/08/19 10:00 Respiratory Rate 20 08/08/19 10:00 Blood Pressure 134/69 08/08/19 10:00 O2 Sat by Pulse Oximetry (%) 96 08/08/19 09:00 Constitutional: Yes: Calm, Thin Eyes: Yes: WNL HENT: Yes: WNL Neck: Yes: WNL Cardiovascular: Yes: Regular Rate and Rhythm, S1, S2 Respiratory: Yes: Diminished Gastrointestinal: Yes: Normal Bowel Sounds, Soft Extremities: Yes: WNL Edema: No Problem List - Problems (1) Cavitary lesion of lung Code(s): J98.4 - OTHER DISORDERS OF LUNG (2) Diabetes mellitus Code(s): E11.9 - TYPE 2 DIABETES MELLITUS WITHOUT COMPLICATIONS Qualifiers: Diabetes mellitus type: type 2 Diabetes mellitus intermodal dispatcher insulin use: without intermodal dispatcher use Diabetes mellitus complication status: without complication Qualified Code(s): E11.9 - Type 2 diabetes mellitus without complications (3) HTN (hypertension) Code(s): I10 - ESSENTIAL (PRIMARY) HYPERTENSION Qualifiers: Hypertension type: essential hypertension Qualified Code(s): I10 - Essential (primary) hypertension (4) Hyperlipidemia Code(s): E78.5 - HYPERLIPIDEMIA, UNSPECIFIED Qualifiers: Hyperlipidemia type: unspecified Qualified Code(s): E78.5 - Hyperlipidemia , unspecified (5) Hypothyroidism Code(s): E03.9 - HYPOTHYROIDISM, UNSPECIFIED Qualifiers: Hypothyroidism type: acquired Qualified Code(s): E03.9 - Hypothyroidism, unspecified Assessment/Plan Assessment/Plan 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
--- NOTE | 2019-08-08 17:40 | PN ---
Progress Note (short form) - Note Progress Note: Patient is comfortable has no symptoms of shortness of breath fever or chills he was admitted 2 days before with persistent pneumonia on the CAT scan with cavitary lesion possible tuberculosis or malignancy patient is not a smoker in the hospital he has been unable to produce sputum because he is not coughing. Vital Signs Period Temp Pulse Resp BP Sys/Garces Pulse Ox Last 24 Hr 98 F-98.4 F 88-96 20-20 111-141/61-73 96-98 Examination Patient is ambulatory and comfortable HEENT no cyanosis noted Chest bilateral symmetrical Lungs are clear on auscultation Heart examination is normal no arrhythmia noted Extremities negative cyanosis clubbing edema Abdomen examination is normal no organomegaly Neurologic is alert awake oriented Laboratory Results - last 24 hr 08/08/19 08/08/19 08/08/19 06:32 11:05 17:35 POC Glucometer 186 208 163 CBC, BMP 08/06/19 07:00 08/06/19 07:00 Assessment and plan persistent pneumonia on the lungs CAT scan Rule out tuberculosis rule out malignancy Diabetes hypertension and arthritis Plan patient has agreed to go on bronchoscopy Saturday and we will do biopsy and also specimen for sputum AFB his blood result is still pending for quantified on gold for tuberculosis for diabetes we started on but back on his medications and will follow-up Current Medications Ampicillin Sodium/Sulbactam (Sodium 1.5 gm/ Sodium Chloride) 100 mls @ 200 mls/ hr IVPB Q6H-IV [facility] Last Admin: 08/08/19 14:54 Dose: 200 mls/hr Levothyroxine Sodium (Synthroid -) 50 mcg PO AM [facility] Last Admin: 08/08/19 06:38 Dose: 50 mcg Losartan Potassium (Cozaar -) 50 mg PO DAILY [facility] Last Admin: 08/08/19 09:25 Dose: 50 mg Metformin HCl (Glucophage Xr -) 1,000 mg PO AM [facility] Last Admin: 08/08/19 06:38 Dose: 1,000 mg Metoprolol Succinate (Toprol Xl -) 25 mg PO DAILY [facility] Last Admin: 08/08/19 09:25 Dose: 25 mg Multivitamins/Minerals/Vitamin C (Tab-A-Vit -) 1 tab PO DAILY [facility] Last Admin: 08/08/19 09:25 Dose: 1 tab Sodium Chloride (Normal Saline For Inhalation -) 3 ml IH Q6H PRN PRN Reason: COUGH
[2019-08-09] MEDS ORDERED: AMPICILLIN NA/SULBACTAM NA 1.5 GM VIAL ONE ×4 (02:29→20:45)
[2019-08-09] MEDS ORDERED: SODIUM CHLORIDE 100 ML IVPB ONE ×4 (02:29→20:46)
[2019-08-09] MEDS: AMPICILLIN NA/SULBACTAM NA 1.5 GM in SODIUM CHLORIDE 100 ML IVPB SCH ×4 (02:35→21:38)
[2019-08-09] MEDS ORDERED: PT OWN MED DRAWER 7, Y5N ONE ×2 (06:04→06:37)
[2019-08-09] MEDS: LEVOTHYROXINE NA 50 MCG TABLET (FP) PO SCH (06:14)
[2019-08-09] MEDS: MULTIVITAMINS (DAILY MVI) TABLET (FP) PO SCH (10:29)
[2019-08-09] MEDS: LOSARTAN POTASSIUM 50 MG TABLET (FP) PO SCH (10:29)
[2019-08-09] MEDS: metoPROLOL SUCCINATE 25 MG TAB.SR.24H (FP) PO SCH (10:29)
--- NOTE | 2019-08-09 12:46 | PN ---
Progress Note, Physician History of Present Illness: pulmonary no distress,-sob,-cough,for bronchoscopy tomorrow - Current Medication List Current Medications: Active Medications Ampicillin Sodium/Sulbactam (Sodium 1.5 gm/ Sodium Chloride) 100 mls @ 200 mls/ hr IVPB Q6H-IV [facility] Last Admin: 08/09/19 08:37 Dose: 200 mls/hr Levothyroxine Sodium (Synthroid -) 50 mcg PO AM [facility] Last Admin: 08/09/19 06:14 Dose: 50 mcg Losartan Potassium (Cozaar -) 50 mg PO DAILY [facility] Last Admin: 08/09/19 10:29 Dose: 50 mg Metformin HCl (Glucophage Xr -) 1,000 mg PO AM [facility] Last Admin: 08/09/19 06:14 Dose: 1,000 mg Metoprolol Succinate (Toprol Xl -) 25 mg PO DAILY [facility] Last Admin: 08/09/19 10:29 Dose: 25 mg Multivitamins/Minerals/Vitamin C (Tab-A-Vit -) 1 tab PO DAILY [facility] Last Admin: 08/09/19 10:29 Dose: 1 tab Sodium Chloride (Normal Saline For Inhalation -) 3 ml IH Q6H PRN PRN Reason: COUGH - Objective Vital Signs: Vital Signs Temperature 98.4 F 08/09/19 06:41 Pulse Rate 85 08/09/19 06:41 Respiratory Rate 20 08/09/19 06:41 Blood Pressure 145/71 08/09/19 06:41 O2 Sat by Pulse Oximetry (%) 96 08/08/19 21:00 Constitutional: Yes: Well Nourished, Calm Eyes: Yes: WNL HENT: Yes: WNL Neck: Yes: WNL Cardiovascular: Yes: Regular Rate and Rhythm, S1, S2 Respiratory: Yes: Diminished Gastrointestinal: Yes: Normal Bowel Sounds, Soft Extremities: Yes: WNL Edema: No Labs: CBC, BMP Problem List - Problems (1) Cavitary lesion of lung Code(s): J98.4 - OTHER DISORDERS OF LUNG (2) Diabetes mellitus Code(s): E11.9 - TYPE 2 DIABETES MELLITUS WITHOUT COMPLICATIONS Qualifiers: Diabetes mellitus type: type 2 Diabetes mellitus assistant terminal manager insulin use: without assistant terminal manager use Diabetes mellitus complication status: without complication Qualified Code(s): E11.9 - Type 2 diabetes mellitus without complications (3) HTN (hypertension) Code(s): I10 - ESSENTIAL (PRIMARY) HYPERTENSION Qualifiers: Hypertension type: essential hypertension Qualified Code(s): I10 - Essential (primary) hypertension (4) Hyperlipidemia Code(s): E78.5 - HYPERLIPIDEMIA, UNSPECIFIED Qualifiers: Hyperlipidemia type: unspecified Qualified Code(s): E78.5 - Hyperlipidemia , unspecified (5) Hypothyroidism Code(s): E03.9 - HYPOTHYROIDISM, UNSPECIFIED Qualifiers: Hypothyroidism type: acquired Qualified Code(s): E03.9 - Hypothyroidism, unspecified Assessment/Plan Assessment/Plan Cavitary Lung Mass likely Tuberculosis Lactic Acidosis HTN DM Hypothyroidism - quantiferon - DVT prophylaxis - flex bronch in am DR GARZA
[2019-08-09 14:07] LABS: INR 1.1 (0.83-1.09)
[2019-08-09 14:10] LABS: ACTIVATED PTT 30.3 SECONDS (25.2-36.5)
--- NOTE | 2019-08-09 17:40 | PN ---
Progress Note (short form) - Note Progress Note: Patient is comfortable has no symptoms of shortness of breath fever or chills he was admitted 2 days before with persistent pneumonia on the CAT scan with cavitary lesion possible tuberculosis or malignancy patient is not a smoker in the hospital he has been unable to produce sputum because he is not coughing. Vital Signs Period Temp Pulse Resp BP Sys/Garces Pulse Ox Last 24 Hr 97.8 F-98.4 F 66-94 18-20 133-156/57-71 96-96 Examination Patient is ambulatory and comfortable HEENT no cyanosis noted Chest bilateral symmetrical Lungs are clear on auscultation Heart examination is normal no arrhythmia noted Extremities negative cyanosis clubbing edema Abdomen examination is normal no organomegaly Neurologic is alert awake oriented CBC, BMP 08/06/19 07:00 08/06/19 07:00 Assessment and plan persistent pneumonia on the lungs CAT scan Rule out tuberculosis rule out malignancy Diabetes hypertension and arthritis Plan patient has agreed to go on bronchoscopy Saturday and we will do biopsy and also specimen for sputum AFB his blood result is still pending for quantified on gold for tuberculosis for diabetes we started on but back on his medications and will follow-up Current Medications Ampicillin Sodium/Sulbactam (Sodium 1.5 gm/ Sodium Chloride) 100 mls @ 200 mls/ hr IVPB Q6H-IV [facility] Last Admin: 08/08/19 14:54 Dose: 200 mls/hr Levothyroxine Sodium (Synthroid -) 50 mcg PO AM [facility] Last Admin: 08/08/19 06:38 Dose: 50 mcg Losartan Potassium (Cozaar -) 50 mg PO DAILY [facility] Last Admin: 08/08/19 09:25 Dose: 50 mg Metformin HCl (Glucophage Xr -) 1,000 mg PO AM [facility] Last Admin: 08/08/19 06:38 Dose: 1,000 mg Metoprolol Succinate (Toprol Xl -) 25 mg PO DAILY [facility] Last Admin: 08/08/19 09:25 Dose: 25 mg Multivitamins/Minerals/Vitamin C (Tab-A-Vit -) 1 tab PO DAILY [facility] Last Admin: 08/08/19 09:25 Dose: 1 tab Sodium Chloride (Normal Saline For Inhalation -) 3 ml IH Q6H PRN PRN Reason: COUGH
[2019-08-10] MEDS ORDERED: SODIUM CHLORIDE 100 ML IVPB ONE ×4 (02:27→20:36)
[2019-08-10] MEDS ORDERED: AMPICILLIN NA/SULBACTAM NA 1.5 GM VIAL ONE ×4 (02:27→20:36)
[2019-08-10] MEDS: AMPICILLIN NA/SULBACTAM NA 1.5 GM in SODIUM CHLORIDE 100 ML IVPB SCH ×4 (02:32→21:32)
[2019-08-10] MEDS ORDERED: PT OWN MED DRAWER 7, Y5N ONE ×2 (05:00→17:57)
[2019-08-10] MEDS: LEVOTHYROXINE NA 50 MCG TABLET (FP) PO SCH (06:02)
--- NOTE | 2019-08-10 08:26 | PN ---
Progress Note (short form) - Note Progress Note: CBC, BMP 08/06/19 07:00 08/06/19 07:00 Vital Signs Period Temp Pulse Resp BP Sys/Garces Pulse Ox Last 24 Hr 97.8 F-98.6 F 66-94 18-20 120-156/57-70 95-96 s1s2 rrr lungs coarse bilateral bs abd soft no edema offers no complaints, no sputum, has dry cough Active Medications Ampicillin Sodium/Sulbactam (Sodium 1.5 gm/ Sodium Chloride) 100 mls @ 200 mls/ hr IVPB Q6H-IV [facility] Last Admin: 08/10/19 02:32 Dose: 200 mls/hr Levothyroxine Sodium (Synthroid -) 50 mcg PO AM [facility] Last Admin: 08/10/19 06:02 Dose: Not Given Losartan Potassium (Cozaar -) 50 mg PO DAILY [facility] Last Admin: 08/09/19 10:29 Dose: 50 mg Metformin HCl (Glucophage Xr -) 1,000 mg PO AM [facility] Last Admin: 08/10/19 06:02 Dose: Not Given Metoprolol Succinate (Toprol Xl -) 25 mg PO DAILY [facility] Last Admin: 08/09/19 10:29 Dose: 25 mg Multivitamins/Minerals/Vitamin C (Tab-A-Vit -) 1 tab PO DAILY [facility] Last Admin: 08/09/19 10:29 Dose: 1 tab Sodium Chloride (Normal Saline For Inhalation -) 3 ml IH Q6H PRN PRN Reason: COUGH r/o TB, r/o malignancy sputum cultures/afb awaiting bronchoscopy today consult appreciated NIDDM hypothyrodism HTN cont home meds isolation Problem List - Problems (1) Diabetes mellitus Code(s): E11.9 - TYPE 2 DIABETES MELLITUS WITHOUT COMPLICATIONS Qualifiers: Diabetes mellitus type: type 2 Diabetes mellitus intermediate designer insulin use: without intermediate designer use Diabetes mellitus complication status: without complication Qualified Code(s): E11.9 - Type 2 diabetes mellitus without complications (2) HTN (hypertension) Code(s): I10 - ESSENTIAL (PRIMARY) HYPERTENSION Qualifiers: Hypertension type: essential hypertension Qualified Code(s): I10 - Essential (primary) hypertension (3) Hyperlipidemia Code(s): E78.5 - HYPERLIPIDEMIA, UNSPECIFIED Qualifiers: Hyperlipidemia type: unspecified Qualified Code(s): E78.5 - Hyperlipidemia , unspecified (4) Hypothyroidism Code(s): E03.9 - HYPOTHYROIDISM, UNSPECIFIED Qualifiers: Hypothyroidism type: acquired Qualified Code(s): E03.9 - Hypothyroidism, unspecified (5) Cavitary lesion of lung Code(s): J98.4 - OTHER DISORDERS OF LUNG
[2019-08-10 09:26] LABS: BASO % 0.9 % (0-2.0); EOS % 5.3 % (0-4.5); HEMATOCRIT 34.1 % (35.4-49); LYMPH % 18.1 % (8-40); MCH 24.6 pg (25.7-33.7); MCHC 32.3 g/dl (32.0-35.9); MEAN CELL VOLUME 76.3 fl (80-96); MEAN PLT VOLUME 8.3 fl (7.5-11.1); MONO % 8.7 % (3.8-10.2); PLATELET COUNT 292 K/MM3 (134-434); RBC 4.46 M/mm3 (4.00-5.60); RDW 19.1 % (11.9-15.9)
[2019-08-10 09:41] LABS: INR 1.11 (0.83-1.09); PROTHROMBIN TIME (PATIENT) 13.1 SEC (9.7-13.0)
[2019-08-10 09:44] LABS: ACTIVATED PTT 30.5 SECONDS (25.2-36.5)
[2019-08-10 10:01] LABS: ALBUMIN 2.9 g/dl (3.4-5.0); BILIRUBIN,TOTAL 0.3 mg/dL (0.2-1); BLOOD UREA NITROGEN 13.3 mg/dL (7-18); CALCIUM 9.6 mg/dL (8.5-10.1); CREATININE 1.1 mg/dL (0.55-1.3); POTASSIUM 4.9 mmol/L (3.5-5.1)
[2019-08-10] MEDS: metoPROLOL SUCCINATE 25 MG TAB.SR.24H (FP) PO SCH (10:12)
[2019-08-10] MEDS: LOSARTAN POTASSIUM 50 MG TABLET (FP) PO SCH (10:12)
[2019-08-10] MEDS: MULTIVITAMINS (DAILY MVI) TABLET (FP) PO SCH (10:12)
--- NOTE | 2019-08-10 10:33 | PN ---
Progress Note (short form) - Note Progress Note: PULMONARY Quantiferon positive. No sputum. Vital Signs Period Temp Pulse Resp BP Sys/Garces Pulse Ox Last 24 Hr 97.8 F-98.6 F 85-94 18-20 120-143/60-70 95-95 Intake & Output 08/07/19 08/08/19 08/09/19 08/10/19 23:59 23:59 23:59 23:59 Intake Total 600 1100 800 Balance 600 1100 800 Gen: NAD at rest Heart: RRR Lung: decreased breath sounds at the bases Abd: soft, nontender Ext: no edema CBC, BMP 08/10/19 08:45 08/10/19 08:45 Active Medications Ampicillin Sodium/Sulbactam (Sodium 1.5 gm/ Sodium Chloride) 100 mls @ 200 mls/ hr IVPB Q6H-IV [facility] Last Admin: 08/10/19 10:11 Dose: 200 mls/hr Levothyroxine Sodium (Synthroid -) 50 mcg PO AM [facility] Last Admin: 08/10/19 06:02 Dose: Not Given Losartan Potassium (Cozaar -) 50 mg PO DAILY [facility] Last Admin: 08/10/19 10:12 Dose: 50 mg Metformin HCl (Glucophage Xr -) 1,000 mg PO AM [facility] Last Admin: 08/10/19 06:02 Dose: Not Given Metoprolol Succinate (Toprol Xl -) 25 mg PO DAILY [facility] Last Admin: 08/10/19 10:12 Dose: 25 mg Multivitamins/Minerals/Vitamin C (Tab-A-Vit -) 1 tab PO DAILY [facility] Last Admin: 08/10/19 10:12 Dose: Not Given Sodium Chloride (Normal Saline For Inhalation -) 3 ml IH Q6H PRN PRN Reason: COUGH A/P Cavitary Lung Mass likely Tuberculosis Lactic Acidosis HTN DM Hypothyroidism - antibiotics per ID - bronchoscopy today for washings, biopsies - DVT prophylaxis
[2019-08-10] MEDS ORDERED: INSULIN (NOVOLOG) ASPART 100 UNITS/ML 10ML VIAL ONE (11:17)
[2019-08-10] MEDS ORDERED: MIDAZOLAM HCL 2 MG/2 ML SINGLE DOSE VIAL ONE (11:39)
[2019-08-10] MEDS ORDERED: SUCCINYLCHOLINE CHLORIDE 200 MG/10 ML SYRINGE ONE (11:39)
[2019-08-10] MEDS ORDERED: NEOSTIGMINE METHYLSULFATE 0.5 MG/ML - 10 ML MDV ONE (12:59)
[2019-08-10] MEDS ORDERED: ONDANSETRON 4 MG/2 ML VIAL IVPUSH PRN ×2 (13:22→14:50)
[2019-08-10] MEDS ORDERED: LACTATED RINGERS SOLUTION 1,000 ML IV SCH ×2 (13:30→14:50)
--- NOTE | 2019-08-10 13:51 | PROC ---
Procedure Note Procedure: BRONCHOSCOPY NOTE After discussing the risks and benefits of the procedure, informed consent was obtained. Pt was placed under general anesthesia and intubated with a size 8.0 ETT by anesthesia. Storz video bronchoscope was passed via the ETT and the airways were examined down to the subsegmental level. There were no endobronchial lesions on the left. In the RLL, there was narrowing of bronchus with irregular mucosa. Area was brushed and forcep biopsies were taken. RLL was then wedged and bronchoaveolar lavages were taken. Bronchoscope was then withdrawn and procedure terminated. Pre-op Dx: r/o TB vs malignancy Post-op Dx: r/o TB vs malignancy Plan: - f/u pathology, cytology - f/u BAL washings for culture Don Justice MD
[2019-08-10] MEDS ORDERED: SODIUM CHLORIDE FOR INHALATION 3 ML VIAL.NEB IH PRN (14:50)
[2019-08-11] MEDS ORDERED: SODIUM CHLORIDE 100 ML IVPB ONE ×4 (02:24→21:20)
[2019-08-11] MEDS ORDERED: AMPICILLIN NA/SULBACTAM NA 1.5 GM VIAL ONE ×4 (02:24→21:20)
[2019-08-11] MEDS: AMPICILLIN NA/SULBACTAM NA 1.5 GM in SODIUM CHLORIDE 100 ML IVPB SCH ×4 (02:54→21:59)
[2019-08-11] MEDS ORDERED: PT OWN MED DRAWER 7, Y5N ONE ×2 (05:58→18:03)
[2019-08-11] MEDS: LEVOTHYROXINE NA 50 MCG TABLET (FP) PO SCH (06:18)
--- NOTE | 2019-08-11 08:10 | PN ---
Progress Note (short form) - Note Progress Note: CBC, BMP 08/10/19 08:45 08/10/19 08:45 Vital Signs Period Temp Pulse Resp BP Sys/Garces Pulse Ox Last 24 Hr 97.6 F-99.6 F 78-101 16-20 124-172/52-75 95-100 s1s2 rrr lungs coarse bilateral bs abd soft no edema offers no complaints, no sputum, has dry cough Active Medications Ampicillin Sodium/Sulbactam (Sodium 1.5 gm/ Sodium Chloride) 100 mls @ 200 mls/ hr IVPB Q6H-IV [facility] Last Admin: 08/10/19 02:32 Dose: 200 mls/hr Levothyroxine Sodium (Synthroid -) 50 mcg PO AM [facility] Last Admin: 08/10/19 06:02 Dose: Not Given Losartan Potassium (Cozaar -) 50 mg PO DAILY [facility] Last Admin: 08/09/19 10:29 Dose: 50 mg Metformin HCl (Glucophage Xr -) 1,000 mg PO AM [facility] Last Admin: 08/10/19 06:02 Dose: Not Given Metoprolol Succinate (Toprol Xl -) 25 mg PO DAILY [facility] Last Admin: 08/09/19 10:29 Dose: 25 mg Multivitamins/Minerals/Vitamin C (Tab-A-Vit -) 1 tab PO DAILY [facility] Last Admin: 08/09/19 10:29 Dose: 1 tab Sodium Chloride (Normal Saline For Inhalation -) 3 ml IH Q6H PRN PRN Reason: COUGH S/p bronchoscopy awaiting path and culture results r/o TB, r/o malignancy consult appreciated NIDDM hypothyrodism HTN cont home meds physical therapy isolation Problem List - Problems (1) Diabetes mellitus Code(s): E11.9 - TYPE 2 DIABETES MELLITUS WITHOUT COMPLICATIONS Qualifiers: Diabetes mellitus type: type 2 Diabetes mellitus intermediate accountant insulin use: without senior living use Diabetes mellitus complication status: without complication Qualified Code(s): E11.9 - Type 2 diabetes mellitus without complications (2) HTN (hypertension) Code(s): I10 - ESSENTIAL (PRIMARY) HYPERTENSION Qualifiers: Hypertension type: essential hypertension Qualified Code(s): I10 - Essential (primary) hypertension (3) Hyperlipidemia Code(s): E78.5 - HYPERLIPIDEMIA, UNSPECIFIED Qualifiers: Hyperlipidemia type: unspecified Qualified Code(s): E78.5 - Hyperlipidemia , unspecified (4) Hypothyroidism Code(s): E03.9 - HYPOTHYROIDISM, UNSPECIFIED Qualifiers: Hypothyroidism type: acquired Qualified Code(s): E03.9 - Hypothyroidism, unspecified (5) Cavitary lesion of lung Code(s): J98.4 - OTHER DISORDERS OF LUNG
[2019-08-11] MEDS ORDERED: metoPROLOL SUCCINATE 25 MG TAB.SR.24H (FP) PO SCH (10:00)
--- NOTE | 2019-08-11 10:26 | PN ---
Progress Note (short form) - Note Progress Note: PULMONARY +nonproductive cough. No fevers recorded. Vital Signs Period Temp Pulse Resp BP Sys/Garces Pulse Ox Last 24 Hr 97.6 F-99.6 F 78-101 16-20 124-172/52-75 95-100 Gen: NAD at rest Heart: RRR Lung: decreased breath sounds at the bases Abd: soft, nontender Ext: no edema CBC, BMP 08/10/19 08:45 08/10/19 08:45 Active Medications Ampicillin Sodium/Sulbactam (Sodium 1.5 gm/ Sodium Chloride) 100 mls @ 200 mls/ hr IVPB Q6H-IV [facility] Last Admin: 08/11/19 02:54 Dose: 200 mls/hr Levothyroxine Sodium (Synthroid -) 50 mcg PO AM [facility] Last Admin: 08/11/19 06:18 Dose: 50 mcg Losartan Potassium (Cozaar -) 50 mg PO DAILY [facility] Metformin HCl (Glucophage Xr -) 1,000 mg PO BIDAC [facility] Metoprolol Succinate (Toprol Xl -) 50 mg PO DAILY [facility] Multivitamins/Minerals/Vitamin C (Tab-A-Vit -) 1 tab PO DAILY [facility] Sodium Chloride (Normal Saline For Inhalation -) 3 ml IH Q6H PRN PRN Reason: COUGH A/P 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
[2019-08-11] MEDS: LOSARTAN POTASSIUM 50 MG TABLET (FP) PO SCH (11:15)
[2019-08-11] MEDS: MULTIVITAMINS (DAILY MVI) TABLET (FP) PO SCH (11:15)
[2019-08-12] MEDS ORDERED: SODIUM CHLORIDE 100 ML IVPB ONE ×2 (01:31→09:54)
[2019-08-12] MEDS ORDERED: AMPICILLIN NA/SULBACTAM NA 1.5 GM VIAL ONE ×2 (01:31→09:53)
[2019-08-12] MEDS: AMPICILLIN NA/SULBACTAM NA 1.5 GM in SODIUM CHLORIDE 100 ML IVPB SCH ×2 (02:03→10:00)
[2019-08-12] MEDS ORDERED: PT OWN MED DRAWER 7, Y5N ONE ×3 (05:31→16:30)
[2019-08-12] MEDS: LEVOTHYROXINE NA 50 MCG TABLET (FP) PO SCH (06:32)
--- NOTE | 2019-08-12 08:12 | PN ---
Progress Note (short form) - Note Progress Note: c/o feeling very weak s1s2 rrr lungs coarse bilateral bs abd soft no edema no calf tenderness no cough Vital Signs Period Temp Pulse Resp BP Sys/Garces Pulse Ox Last 24 Hr 97.7 F-103 F 98-115 20-22 149-151/65-74 96-96 S/p bronchoscopy awaiting path and culture results fever this am will order cxr, urine and labs r/o TB, r/o malignancy consult appreciated NIDDM hypothyrodism HTN cont home meds physical therapy isolation Problem List - Problems (1) Diabetes mellitus Code(s): E11.9 - TYPE 2 DIABETES MELLITUS WITHOUT COMPLICATIONS Qualifiers: Diabetes mellitus type: type 2 Diabetes mellitus machine long goods helper insulin use: without mcc use Diabetes mellitus complication status: without complication Qualified Code(s): E11.9 - Type 2 diabetes mellitus without complications (2) HTN (hypertension) Code(s): I10 - ESSENTIAL (PRIMARY) HYPERTENSION Qualifiers: Hypertension type: essential hypertension Qualified Code(s): I10 - Essential (primary) hypertension (3) Hyperlipidemia Code(s): E78.5 - HYPERLIPIDEMIA, UNSPECIFIED Qualifiers: Hyperlipidemia type: unspecified Qualified Code(s): E78.5 - Hyperlipidemia , unspecified (4) Hypothyroidism Code(s): E03.9 - HYPOTHYROIDISM, UNSPECIFIED Qualifiers: Hypothyroidism type: acquired Qualified Code(s): E03.9 - Hypothyroidism, unspecified (5) Cavitary lesion of lung Code(s): J98.4 - OTHER DISORDERS OF LUNG
[2019-08-12] MEDS: LOSARTAN POTASSIUM 50 MG TABLET (FP) PO SCH (10:00)
[2019-08-12] MEDS: MULTIVITAMINS (DAILY MVI) TABLET (FP) PO SCH (10:00)
[2019-08-12 10:26] LABS: BASO % 0.4 % (0-2.0); EOS % 0.1 % (0-4.5); HEMATOCRIT 33.8 % (35.4-49); HEMOGLOBIN 10.6 GM/dL (11.7-16.9); LYMPH % 6.5 % (8-40); MCH 24.2 pg (25.7-33.7); MCHC 31.3 g/dl (32.0-35.9); MEAN CELL VOLUME 77.4 fl (80-96); MEAN PLT VOLUME 8.6 fl (7.5-11.1); MONO % 3.6 % (3.8-10.2); NEUT % 89.4 % (42.8-82.8); PLATELET COUNT 242 K/MM3 (134-434); RBC 4.37 M/mm3 (4.00-5.60); RDW 18.6 % (11.9-15.9); WHITE BLOOD COUNT 11.8 K/mm3 (4.0-10.0)
[2019-08-12 10:53] LABS: ALBUMIN 2.7 g/dl (3.4-5.0); BILIRUBIN,TOTAL 0.3 mg/dL (0.2-1); BLOOD UREA NITROGEN 14.4 mg/dL (7-18); CALCIUM 8.6 mg/dL (8.5-10.1); CREATININE 1.3 mg/dL (0.55-1.3); POTASSIUM 3.6 mmol/L (3.5-5.1); TOT PROT 6.7 g/dl (6.4-8.2)
[2019-08-12 13:21] LABS: EPI CELLS 0.7 /HPF (0-5/HPF); HYALINE CASTS 5 /lpf (0-8); URINE APPEARANCE CLEAR; URINE BILIRUBIN NEGATIVE (NEGATIVE); URINE COLOR YELLOW; URINE GLUCOSE (UA) 3+ (NEGATIVE); URINE KETONE 1+ (NEGATIVE); URINE LEUK ESTERASE NEGATIVE (NEGATIVE); URINE NITRITE NEGATIVE (NEGATIVE); URINE PROTEIN 2+ (NEGATIVE); URINE RBC 2 /hpf (0-4); URINE UROBILINOGEN 0.2 mg/dL (0.2-1.0); URINE WBC 1 /hpf (0-5)
[2019-08-12] MEDS ORDERED: ONDANSETRON 4 MG/2 ML VIAL IVPB PRN (13:57)
[2019-08-12] MEDS ORDERED: POTASSIUM CHLORIDE 10 MEQ in SODIUM CHLORIDE 1,000 ML IVPB SCH (14:00)
--- NOTE | 2019-08-12 14:06 | PATH ---
Surgical Pathology Report Patient Name: BEKA SARAVIA [facility]. Rec. #: [id number] /Age/Gender: 1940 (Age: 79) / M Account: [id number] Location: [facility] Taken: 08/10/2019 Received: 08/10/2019 Reported: 08/12/2019 Physicians: Ceferino Rivera M.D. Radhika Hariharan, M.D. Specimen(s) Received BRONCHUS BIOPSY Clinical History Cavitary lesions of lung, rule out TB Final Diagnosis LUNG, LOWER LOBE, RIGHT, TRANSBRONCHIAL BIOPSY: NECROTIZING GRANULOMATOUS INFLAMMATION. AFB SPECIAL STAIN IS POSITIVE FOR ACID FAST BACILLI MORPHOLOGICALLY CONSISTENT WITH MYCOBACTERIUM SPECIES. FUNGAL (PAS) STAIN IS NEGATIVE FOR FUNGAL ORGANISMS. Comment: Cavitary lesions of the lung noted. Suggest clinical, radiologic, and microbiology studies correlation. See concurrent cytology ([id number]). Findings discussed with Dr. Justice. Electronically Signed Morena Kim M.D. Gross Description Received in formalin labeled "biopsies right lower lobe," is a 0.7 x 0.6 x 0.1 cm aggregate of hunt brown soft tissue fragments. The formalin is filtered and the specimen is entirely submitted in one cassette. /08/10/201908/10/2019
--- NOTE | 2019-08-12 14:13 | PATH ---
Cytology Non-Gynecological Report Patient Name: BEKA SARAVIA Med. Rec. #: [id number] /Age/Gender: 1940 (Age: 79) / M Account: [id number] Location: [facility] Taken: 08/10/2019 Received: 08/10/2019 Reported: 08/12/2019 Physicians: Ceferino Rivera M.D. Radhika Hariharan, M.D. Specimen(s) Received A: BRONCHIAL BRUSHINGS RIGHT LOWER LOBE B: BRONCHIAL WASHINGS RIGHT LOWER LOBE Clinical History Cavitary lung lesion, r/o TB Final Diagnosis A. BRONCHIAL BRUSHING, LOWER LOBE, RIGHT, FOR CYTOLOGY: SATISFACTORY FOR EVALUATION. NEGATIVE FOR MALIGNANT CELLS. ACUTE INFLAMMATORY EXUDATE AND SQUAMOUS EPITHELIAL CELLS PRESENT. B. BRONCHIAL WASHING, LOWER LOBE, RIGHT, FOR CYTOLOGY: SATISFACTORY FOR EVALUATION. NEGATIVE FOR MALIGNANT CELLS. ACUTE INFLAMMATORY EXUDATE, SQUAMOUS AND BRONCHIAL EPITHELIAL CELLS PRESENT. Comment: See concurrent biopsy ([id number]). Electronically Signed Morena Kim M.D. Gross Description A. Received brush in approximately 30 cc of clear fluid fixed in 50% alcohol. One cytofunnel and direct smear prepared and Pap stained. One cellblock prepared. B. Approximately 30 cc of oscar fluid received fresh. One cytofunnel prepared and Pap stained. One cellblock prepared.
--- NOTE | 2019-08-12 14:35 | PN ---
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 with AFB sputum sent yesterday pending now cough productive after bronch quant is positive fever to 103 today he feels weak no vomiting no diarrhea no abdominal pain unasyn day #6 Vital Signs Period Temp Pulse Resp BP Sys/Garces Pulse Ox Last 24 Hr 97.7 F-103 F 100-115 22-22 149/74 93-96 cor-rrr lungs decreased bs right base abd soft,nt ext no edema CBC, BMP 08/12/19 09:40 08/12/19 09:40 Microbiology 08/10/19 11:20 Bronchial Washings - Right Lower Lobe AFB Smear Concentration - Final 08/10/19 11:20 Bronchial Washings - Right Lower Lobe Mycobacterial Culture - Preliminary 08/10/19 13:05 Bronchial Washings - Right Lower Lobe Gram Stain - Final 08/10/19 13:05 Bronchial Washings - Right Lower Lobe Bronchoalveolar Lavage Culture - Final 08/11/19 11:20 Sputum - Expectorated Gram Stain - Final 08/11/19 11:20 Sputum - Expectorated Sputum Culture - Preliminary NORMAL RESPIRATORY FREDDY 08/11/19 11:20 Sputum - Expectorated AFB Smear Concentration - Preliminary 08/11/19 11:20 Sputum - Expectorated Mycobacterial Culture - Preliminary 08/10/19 11:20 Bronchial Washings - Right Lower Lobe BRISSA Preparation - Preliminary 08/10/19 11:20 Bronchial Washings - Right Lower Lobe Fungal Culture - Preliminary 08/05/19 10:55 Blood - Peripheral Venous Blood Culture - Final NO GROWTH AFTER 5 DAYS INCUBATION 08/05/19 10:55 Blood - Peripheral Venous Blood Culture - Final NO GROWTH AFTER 5 DAYS INCUBATION a/p fevers +AFB will start RIPE will notify infection control and family f/u PCR when available repeat blood cultures ua and urine culture cxray noted afb isolation to continue Problem List - Problems (1) Abnormal CT scan, chest Code(s): R93.89 - ABNORMAL FINDINGS ON DX IMAGING OF OTH BODY STRUCTURES (2) Cavitary lesion of lung Code(s): J98.4 - OTHER DISORDERS OF LUNG (3) Diabetes mellitus Code(s): E11.9 - TYPE 2 DIABETES MELLITUS WITHOUT COMPLICATIONS Qualifiers: Diabetes mellitus type: type 2 Diabetes mellitus fpc insulin use: without fpc use Diabetes mellitus complication status: without complication Qualified Code(s): E11.9 - Type 2 diabetes mellitus without complications
--- NOTE | 2019-08-12 14:43 | PN ---
Progress Note (short form) - Note Progress Note: PULMONARY Febrile this AM. Feels weak today. Pathology back with necrotizing granulomatous inflammation with AFB present. Vital Signs Period Temp Pulse Resp BP Sys/Garces Pulse Ox Last 24 Hr 97.7 F-103 F 100-115 22-22 149/74 93-96 Gen: NAD at rest Heart: RRR Lung: decreased breath sounds at the bases Abd: soft, nontender Ext: no edema CBC, BMP 08/12/19 09:40 08/12/19 09:40 Active Medications Acetaminophen (Tylenol -) 650 mg PO Q6H PRN PRN Reason: FEVER Potassium Chloride 10 meq/ (Sodium Chloride) 1,005 mls @ 75 mls/hr IVPB Q13H [facility] Isoniazid (Inh -) 300 mg PO DAILY [facility] Levothyroxine Sodium (Synthroid -) 50 mcg PO AM [facility] Last Admin: 08/12/19 06:32 Dose: 50 mcg Losartan Potassium (Cozaar -) 50 mg PO DAILY [facility] Last Admin: 08/12/19 10:00 Dose: 50 mg Metformin HCl (Glucophage Xr -) 1,000 mg PO BIDAC [facility] Last Admin: 08/12/19 06:32 Dose: 1,000 mg Metoprolol Succinate (Toprol Xl -) 50 mg PO DAILY [facility] Last Admin: 08/12/19 10:00 Dose: 50 mg Multivitamins/Minerals/Vitamin C (Tab-A-Vit -) 1 tab PO DAILY [facility] Last Admin: 08/12/19 10:00 Dose: 1 tab Ondansetron HCl (Zofran Injection) 8 mg IVPB Q8H PRN PRN Reason: NAUSEA Rifampin (Rifadin -) 600 mg PO DAILY [facility] Sodium Chloride (Normal Saline For Inhalation -) 3 ml IH Q6H PRN PRN Reason: COUGH A/P Cavitary Lung Mass likely Tuberculosis Lactic Acidosis HTN DM Hypothyroidism Anemia - antibiotics per ID - f/u cultures/PCR - DVT prophylaxis
[2019-08-12] MEDS ORDERED: DEXTROSE 5%-WATER - 50 ML IVPB ONE ×2 (16:30→21:00)
[2019-08-12] MEDS ORDERED: CEFEPIME HCL 1 GM VIAL (RESTRICTED TO ID) ONE ×2 (16:30→21:00)
[2019-08-12] MEDS: CEFEPIME 1 GM in DEXTROSE 5%-WATER - 50 ML IVPB SCH ×2 (16:49→21:55)
[2019-08-12] MEDS: ACETAMINOPHEN 325 MG TABLET (FP) PO PRN (16:55)
[2019-08-12] MEDS: PYRAZINAMIDE 500 MG TABLET PO SCH (17:30)
[2019-08-12] MEDS: PYRIDOXINE HCL (B-6) 50 MG TABLET (FP) PO SCH (17:30)
[2019-08-12] MEDS: ISONIAZID 300 MG TABLET (FP) PO SCH (17:30)
[2019-08-12] MEDS: RIFAMPIN 300 MG CAPSULE PO SCH (17:30)
[2019-08-12] MEDS: ETHAMBUTOL HCL 400 MG TABLET PO SCH (17:31)
[2019-08-13] MEDS: SODIUM CHLORIDE 0.9%/KCL 20 MEQ/1,000 ML INFUS.BAG IV SCH ×2 (00:54→14:04)
[2019-08-13] MEDS: LEVOTHYROXINE NA 50 MCG TABLET (FP) PO SCH (06:20)
[2019-08-13] MEDS ORDERED: DEXTROSE 5%-WATER - 50 ML IVPB ONE ×2 (08:32→20:30)
[2019-08-13] MEDS ORDERED: CEFEPIME HCL 1 GM VIAL (RESTRICTED TO ID) ONE ×2 (08:32→20:30)
--- NOTE | 2019-08-13 08:58 | PN ---
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?, cultures taken NIDDM hypothyrodism HTN isolation started TB meds iv cefepime consults appreciated d/w son at length yesterday Problem List - Problems (1) Diabetes mellitus Code(s): E11.9 - TYPE 2 DIABETES MELLITUS WITHOUT COMPLICATIONS Qualifiers: Diabetes mellitus type: type 2 Diabetes mellitus rodent exterminator insulin use: without alf use Diabetes mellitus complication status: without complication Qualified Code(s): E11.9 - Type 2 diabetes mellitus without complications (2) HTN (hypertension) Code(s): I10 - ESSENTIAL (PRIMARY) HYPERTENSION Qualifiers: Hypertension type: essential hypertension Qualified Code(s): I10 - Essential (primary) hypertension (3) Hyperlipidemia Code(s): E78.5 - HYPERLIPIDEMIA, UNSPECIFIED Qualifiers: Hyperlipidemia type: unspecified Qualified Code(s): E78.5 - Hyperlipidemia , unspecified (4) Hypothyroidism Code(s): E03.9 - HYPOTHYROIDISM, UNSPECIFIED Qualifiers: Hypothyroidism type: acquired Qualified Code(s): E03.9 - Hypothyroidism, unspecified (5) Cavitary lesion of lung Code(s): J98.4 - OTHER DISORDERS OF LUNG
[2019-08-13] MEDS: LOSARTAN POTASSIUM 50 MG TABLET (FP) PO SCH (10:05)
[2019-08-13] MEDS: RIFAMPIN 300 MG CAPSULE PO SCH (10:05)
[2019-08-13] MEDS: MULTIVITAMINS (DAILY MVI) TABLET (FP) PO SCH (10:05)
[2019-08-13] MEDS: CEFEPIME 1 GM in DEXTROSE 5%-WATER - 50 ML IVPB SCH ×2 (10:06→21:01)
[2019-08-13] MEDS: PYRAZINAMIDE 500 MG TABLET PO SCH (10:06)
[2019-08-13] MEDS: ISONIAZID 300 MG TABLET (FP) PO SCH (10:10)
[2019-08-13] MEDS: ETHAMBUTOL HCL 400 MG TABLET PO SCH (10:10)
[2019-08-13] MEDS: PYRIDOXINE HCL (B-6) 50 MG TABLET (FP) PO SCH (10:14)
--- NOTE | 2019-08-13 10:18 | PN ---
Progress Note (short form) - Note Progress Note: PULMONARY Fevers down. Started on TB treatment. Vital Signs Period Temp Pulse Resp BP Sys/Garces Pulse Ox Last 24 Hr 98 F-102.4 F 88-95 20-22 148-178/72-82 95 Gen: NAD at rest Heart: RRR Lung: decreased breath sounds at the bases Abd: soft, nontender Ext: no edema CBC, BMP 08/12/19 09:40 08/12/19 09:40 Active Medications Acetaminophen (Tylenol -) 650 mg PO Q6H PRN PRN Reason: FEVER Last Admin: 08/12/19 16:55 Dose: 650 mg Ethambutol HCl (Myambutol -) 1,200 mg PO DAILY [facility] Last Admin: 08/12/19 17:31 Dose: 1,200 mg Cefepime HCl 1 gm/ Dextrose 50 mls @ 100 mls/hr IVPB BID SHANTHI; Protocol Last Admin: 08/12/19 21:55 Dose: 100 mls/hr Potassium Chloride/Sodium Chloride (Ns+20 Meq Kcl -) 20 meq in 1,000 mls @ 75 mls/hr IV ASDIR [facility] Last Admin: 08/13/19 00:54 Dose: 75 mls/hr Isoniazid (Inh -) 300 mg PO DAILY [facility] Last Admin: 08/12/19 17:30 Dose: 300 mg Levothyroxine Sodium (Synthroid -) 50 mcg PO AM [facility] Last Admin: 08/13/19 06:20 Dose: 50 mcg Losartan Potassium (Cozaar -) 50 mg PO DAILY [facility] Last Admin: 08/12/19 10:00 Dose: 50 mg Metformin HCl (Glucophage Xr -) 1,000 mg PO BIDAC [facility] Last Admin: 08/13/19 06:20 Dose: 1,000 mg Metoprolol Succinate (Toprol Xl -) 50 mg PO DAILY [facility] Last Admin: 08/12/19 10:00 Dose: 50 mg Multivitamins/Minerals/Vitamin C (Tab-A-Vit -) 1 tab PO DAILY [facility] Last Admin: 08/12/19 10:00 Dose: 1 tab Ondansetron HCl (Zofran Injection) 8 mg IVPB Q8H PRN PRN Reason: NAUSEA Pyrazinamide (Pyrazinamide -) 1,500 mg PO DAILY [facility] Last Admin: 08/12/19 17:30 Dose: 1,500 mg Pyridoxine HCl (Vitamin B6 -) 50 mg PO DAILY [facility] Last Admin: 08/12/19 17:30 Dose: 50 mg Rifampin (Rifadin -) 600 mg PO DAILY [facility] Last Admin: 08/12/19 17:30 Dose: 600 mg A/P Cavitary Lung Mass likely Tuberculosis Lactic Acidosis HTN DM Hypothyroidism Anemia - antibiotics per ID - f/u cultures/PCR - monitor LFTs - DVT prophylaxis
[2019-08-13 11:12] LABS: BASO % 0.8 % (0-2.0); EOS % 0.3 % (0-4.5); HEMATOCRIT 34.7 % (35.4-49); HEMOGLOBIN 11.1 GM/dL (11.7-16.9); LYMPH % 6.4 % (8-40); MCH 24.5 pg (25.7-33.7); MEAN CELL VOLUME 76.6 fl (80-96); MEAN PLT VOLUME 8.6 fl (7.5-11.1); MONO % 3.2 % (3.8-10.2); NEUT % 89.3 % (42.8-82.8); PLATELET COUNT 221 K/MM3 (134-434); RBC 4.53 M/mm3 (4.00-5.60); RDW 18.5 % (11.9-15.9); WHITE BLOOD COUNT 8.5 K/mm3 (4.0-10.0)
[2019-08-13 12:00] LABS: ALBUMIN 2.5 g/dl (3.4-5.0); BILIRUBIN,TOTAL 0.6 mg/dL (0.2-1); BLOOD UREA NITROGEN 14.7 mg/dL (7-18); CALCIUM 8.4 mg/dL (8.5-10.1); CREATININE 1.1 mg/dL (0.55-1.3); POTASSIUM 4.5 mmol/L (3.5-5.1); TOT PROT 6.5 g/dl (6.4-8.2)
[2019-08-13] MEDS: ACETAMINOPHEN 325 MG TABLET (FP) PO PRN (12:38)
[2019-08-13] MEDS ORDERED: PT OWN MED DRAWER 7, Y5N ONE (17:59)
--- NOTE | 2019-08-13 18:24 | PN ---
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 with AFB sputum sent yesterday +PCR mtb Vital Signs Period Temp Pulse Resp BP Sys/Garces Pulse Ox Last 24 Hr 99 F-101.6 F 76-95 20-20 139-178/72-80 92-95 alert cor-rrr llungs cllear abd soft,nt ext no edema CBC, BMP 08/13/19 08:40 08/13/19 08:40 Microbiology 08/12/19 14:30 Blood - Peripheral Venous Blood Culture - Preliminary NO GROWTH OBTAINED AFTER 24 HOURS, INCUBATION TO CONTINUE FOR 4 DAYS. 08/12/19 14:30 Blood - Peripheral Venous Blood Culture - Preliminary NO GROWTH OBTAINED AFTER 24 HOURS, INCUBATION TO CONTINUE FOR 4 DAYS. 08/12/19 12:10 Urine - Urine Clean Catch Urine Culture - Final NO GROWTH OBTAINED 08/11/19 11:20 Sputum - Expectorated Gram Stain - Final 08/11/19 11:20 Sputum - Expectorated Sputum Culture - Final NORMAL RESPIRATORY FREDDY 08/11/19 11:20 Sputum - Expectorated AFB Smear Concentration - Final 08/11/19 11:20 Sputum - Expectorated Mycobacterial Culture - Preliminary 08/10/19 11:20 Bronchial Washings - Right Lower Lobe AFB Smear Concentration - Final 08/10/19 11:20 Bronchial Washings - Right Lower Lobe Mycobacterial Culture - Preliminary 08/10/19 13:05 Bronchial Washings - Right Lower Lobe Gram Stain - Final 08/10/19 13:05 Bronchial Washings - Right Lower Lobe Bronchoalveolar Lavage Culture - Final 08/10/19 11:20 Bronchial Washings - Right Lower Lobe BRISSA Preparation - Preliminary 08/10/19 11:20 Bronchial Washings - Right Lower Lobe Fungal Culture - Preliminary 08/05/19 10:55 Blood - Peripheral Venous Blood Culture - Final NO GROWTH AFTER 5 DAYS INCUBATION 08/05/19 10:55 Blood - Peripheral Venous Blood Culture - Final NO GROWTH AFTER 5 DAYS INCUBATION a/p fevers MTB on RIPE d/w ABDIRASHID- they came to see patient today they will f/u with patient at discharge repeat blood cultures ua and urine culture-negative cxray noted continue cefepime another 24 hours- I suspect fevers are TB and we can stop cefepime in another 24 hours afb isolation to continue follow lfts on RIPE Problem List - Problems (1) Abnormal CT scan, chest Code(s): R93.89 - ABNORMAL FINDINGS ON DX IMAGING OF OTH BODY STRUCTURES (2) Cavitary lesion of lung Code(s): J98.4 - OTHER DISORDERS OF LUNG (3) Diabetes mellitus Code(s): E11.9 - TYPE 2 DIABETES MELLITUS WITHOUT COMPLICATIONS Qualifiers: Diabetes mellitus type: type 2 Diabetes mellitus intermediate accountant insulin use: without intermediate accountant use Diabetes mellitus complication status: without complication Qualified Code(s): E11.9 - Type 2 diabetes mellitus without complications
[2019-08-14] MEDS: SODIUM CHLORIDE 0.9%/KCL 20 MEQ/1,000 ML INFUS.BAG IV SCH (02:48)
[2019-08-14] MEDS: LEVOTHYROXINE NA 50 MCG TABLET (FP) PO SCH (06:01)
--- NOTE | 2019-08-14 08:25 | PN ---
Progress Note (short form) - Note Progress Note: no new complaints Vital Signs Period Temp Pulse Resp BP Sys/Garces Pulse Ox Last 24 Hr 97.2 F-101.6 F 68-95 18-20 139-156/71-84 92-94 sputum afb positive with MTB positive pcr s1s2 rrr scattered rhonchi no edema abd soft non tender nonfocal exam Pulmonary tuberculosis NIDDM hypothyrodism HTN last fever 24 hours ago isolation started TB meds iv cefepime for today, then dc consults appreciated monitor labs tomorrow Problem List - Problems (1) Diabetes mellitus Code(s): E11.9 - TYPE 2 DIABETES MELLITUS WITHOUT COMPLICATIONS Qualifiers: Diabetes mellitus type: type 2 Diabetes mellitus nursing home insulin use: without nursing home use Diabetes mellitus complication status: without complication Qualified Code(s): E11.9 - Type 2 diabetes mellitus without complications (2) HTN (hypertension) Code(s): I10 - ESSENTIAL (PRIMARY) HYPERTENSION Qualifiers: Hypertension type: essential hypertension Qualified Code(s): I10 - Essential (primary) hypertension (3) Hyperlipidemia Code(s): E78.5 - HYPERLIPIDEMIA, UNSPECIFIED Qualifiers: Hyperlipidemia type: unspecified Qualified Code(s): E78.5 - Hyperlipidemia , unspecified (4) Hypothyroidism Code(s): E03.9 - HYPOTHYROIDISM, UNSPECIFIED Qualifiers: Hypothyroidism type: acquired Qualified Code(s): E03.9 - Hypothyroidism, unspecified (5) Cavitary lesion of lung Code(s): J98.4 - OTHER DISORDERS OF LUNG
[2019-08-14] MEDS ORDERED: CEFEPIME HCL 1 GM VIAL (RESTRICTED TO ID) ONE ×2 (09:52→20:47)
[2019-08-14] MEDS ORDERED: DEXTROSE 5%-WATER - 50 ML IVPB ONE ×2 (09:52→20:48)
[2019-08-14] MEDS ORDERED: PT OWN MED DRAWER 7, Y5N ONE ×2 (09:52→17:17)
[2019-08-14] MEDS: LOSARTAN POTASSIUM 50 MG TABLET (FP) PO SCH (10:09)
[2019-08-14] MEDS: MULTIVITAMINS (DAILY MVI) TABLET (FP) PO SCH (10:09)
[2019-08-14] MEDS: CEFEPIME 1 GM in DEXTROSE 5%-WATER - 50 ML IVPB SCH ×2 (10:10→21:39)
[2019-08-14] MEDS: PYRAZINAMIDE 500 MG TABLET PO SCH (10:10)
[2019-08-14] MEDS: ETHAMBUTOL HCL 400 MG TABLET PO SCH (10:11)
[2019-08-14] MEDS: RIFAMPIN 300 MG CAPSULE PO SCH (10:11)
[2019-08-14] MEDS: ISONIAZID 300 MG TABLET (FP) PO SCH (10:11)
[2019-08-14] MEDS: PYRIDOXINE HCL (B-6) 50 MG TABLET (FP) PO SCH (10:11)
--- NOTE | 2019-08-14 15:48 | PN ---
Progress Note (short form) - Note Progress Note: day #3 RIPE feels much better Vital Signs Period Temp Pulse Resp BP Sys/Garces Pulse Ox Last 24 Hr 97.2 F-98.6 F 68-95 18-18 142-156/71-84 94-100 cor-rrr lungs rhonchi bilaterally abd-soft, nt ext- no edema CBC, BMP 08/13/19 08:40 08/13/19 08:40 Microbiology 08/12/19 14:30 Blood - Peripheral Venous Blood Culture - Preliminary NO GROWTH OBTAINED AFTER 48 HOURS, INCUBATION TO CONTINUE FOR 3 DAYS. 08/12/19 14:30 Blood - Peripheral Venous Blood Culture - Preliminary NO GROWTH OBTAINED AFTER 48 HOURS, INCUBATION TO CONTINUE FOR 3 DAYS. 08/12/19 12:10 Urine - Urine Clean Catch Urine Culture - Final NO GROWTH OBTAINED 08/11/19 11:20 Sputum - Expectorated Gram Stain - Final 08/11/19 11:20 Sputum - Expectorated Sputum Culture - Final NORMAL RESPIRATORY FREDDY 08/11/19 11:20 Sputum - Expectorated AFB Smear Concentration - Final 08/11/19 11:20 Sputum - Expectorated Mycobacterial Culture - Preliminary 08/10/19 11:20 Bronchial Washings - Right Lower Lobe AFB Smear Concentration - Final 08/10/19 11:20 Bronchial Washings - Right Lower Lobe Mycobacterial Culture - Preliminary 08/10/19 13:05 Bronchial Washings - Right Lower Lobe Gram Stain - Final 08/10/19 13:05 Bronchial Washings - Right Lower Lobe Bronchoalveolar Lavage Culture - Final 08/10/19 11:20 Bronchial Washings - Right Lower Lobe BRISSA Preparation - Preliminary 08/10/19 11:20 Bronchial Washings - Right Lower Lobe Fungal Culture - Preliminary 08/05/19 10:55 Blood - Peripheral Venous Blood Culture - Final NO GROWTH AFTER 5 DAYS INCUBATION 08/05/19 10:55 Blood - Peripheral Venous Blood Culture - Final NO GROWTH AFTER 5 DAYS INCUBATION a/p fevers-resolved MTB on RIPE/vit B6 d/w ABDIRASHID- they will f/u with patient at discharge repeat sputum afb q 8h on saturday for 3 specimen for sputum smear if negative he can go home on DOT afb isolation to continue follow lfts on RIPE d/w PMD Problem List - Problems (1) Abnormal CT scan, chest Code(s): R93.89 - ABNORMAL FINDINGS ON DX IMAGING OF OTH BODY STRUCTURES (2) Cavitary lesion of lung Code(s): J98.4 - OTHER DISORDERS OF LUNG (3) Diabetes mellitus Code(s): E11.9 - TYPE 2 DIABETES MELLITUS WITHOUT COMPLICATIONS Qualifiers: Diabetes mellitus type: type 2 Diabetes mellitus detention insulin use: without detention use Diabetes mellitus complication status: without complication Qualified Code(s): E11.9 - Type 2 diabetes mellitus without complications
[2019-08-15] MEDS ORDERED: PT OWN MED DRAWER 7, Y5N ONE ×3 (06:21→16:30)
[2019-08-15] MEDS: SODIUM CHLORIDE 0.9%/KCL 20 MEQ/1,000 ML INFUS.BAG IV SCH (06:57)
[2019-08-15] MEDS: LEVOTHYROXINE NA 50 MCG TABLET (FP) PO SCH (06:58)
--- NOTE | 2019-08-15 09:19 | PN ---
Progress Note (short form) - Note Progress Note: no new complaints, feeling better Vital Signs Period Temp Pulse Resp BP Sys/Garces Pulse Ox Last 24 Hr 97.9 F-98.2 F 74-78 18-20 120-162/78-86 Labs drawn today s1s2 rrr scattered rhonchi no edema abd soft non tender nonfocal exam Pulmonary tuberculosis NIDDM hypothyrodism HTN last fever 24 hours ago isolation started TB meds dc cefepime and iv fluids consults appreciated monitor labs repeat sputum on Saturday, if smear negative will start dc plannning home with dot Problem List - Problems (1) Diabetes mellitus Code(s): E11.9 - TYPE 2 DIABETES MELLITUS WITHOUT COMPLICATIONS Qualifiers: Diabetes mellitus type: type 2 Diabetes mellitus extermination inspector insulin use: without longterm use Diabetes mellitus complication status: without complication Qualified Code(s): E11.9 - Type 2 diabetes mellitus without complications (2) HTN (hypertension) Code(s): I10 - ESSENTIAL (PRIMARY) HYPERTENSION Qualifiers: Hypertension type: essential hypertension Qualified Code(s): I10 - Essential (primary) hypertension (3) Hyperlipidemia Code(s): E78.5 - HYPERLIPIDEMIA, UNSPECIFIED Qualifiers: Hyperlipidemia type: unspecified Qualified Code(s): E78.5 - Hyperlipidemia , unspecified (4) Hypothyroidism Code(s): E03.9 - HYPOTHYROIDISM, UNSPECIFIED Qualifiers: Hypothyroidism type: acquired Qualified Code(s): E03.9 - Hypothyroidism, unspecified (5) Cavitary lesion of lung Code(s): J98.4 - OTHER DISORDERS OF LUNG
[2019-08-15 10:26] LABS: BASO % 1.2 % (0-2.0); EOS % 3.9 % (0-4.5); HEMATOCRIT 36.7 % (35.4-49); HEMOGLOBIN 11.7 GM/dL (11.7-16.9); LYMPH % 11.2 % (8-40); MCH 24.6 pg (25.7-33.7); MEAN CELL VOLUME 76.7 fl (80-96); MEAN PLT VOLUME 8.9 fl (7.5-11.1); MONO % 8.1 % (3.8-10.2); NEUT % 75.6 % (42.8-82.8); PLATELET COUNT 268 K/MM3 (134-434); RBC 4.78 M/mm3 (4.00-5.60); RDW 18.8 % (11.9-15.9); WHITE BLOOD COUNT 6.8 K/mm3 (4.0-10.0)
[2019-08-15] MEDS: LOSARTAN POTASSIUM 50 MG TABLET (FP) PO SCH ×2 (10:33→16:38)
[2019-08-15] MEDS: MULTIVITAMINS (DAILY MVI) TABLET (FP) PO SCH (10:33)
[2019-08-15] MEDS: ETHAMBUTOL HCL 400 MG TABLET PO SCH (10:34)
[2019-08-15] MEDS: PYRIDOXINE HCL (B-6) 50 MG TABLET (FP) PO SCH (10:34)
[2019-08-15] MEDS: ISONIAZID 300 MG TABLET (FP) PO SCH (10:34)
[2019-08-15] MEDS: RIFAMPIN 300 MG CAPSULE PO SCH (10:34)
[2019-08-15] MEDS: PYRAZINAMIDE 500 MG TABLET PO SCH (10:35)
[2019-08-15 10:48] LABS: ALBUMIN 2.3 g/dl (3.4-5.0); BILIRUBIN,TOTAL 0.4 mg/dL (0.2-1); BLOOD UREA NITROGEN 15.2 mg/dL (7-18); CALCIUM 8.8 mg/dL (8.5-10.1); CREATININE 0.9 mg/dL (0.55-1.3); TOT PROT 6.2 g/dl (6.4-8.2)
--- NOTE | 2019-08-15 11:18 | PN ---
Progress Note (short form) - Note Progress Note: PULMONARY Feels better. No fevers recorded. Vital Signs Period Temp Pulse Resp BP Sys/Garces Pulse Ox Last 24 Hr 97.4 F-98.2 F 74-89 18-20 120-165/78-86 Gen: NAD at rest Heart: RRR Lung: decreased breath sounds at the bases Abd: soft, nontender Ext: no edema CBC, BMP 08/15/19 07:45 08/15/19 07:45 Active Medications Acetaminophen (Tylenol -) 650 mg PO Q6H PRN PRN Reason: FEVER Last Admin: 08/13/19 12:38 Dose: 650 mg Ethambutol HCl (Myambutol -) 1,200 mg PO DAILY [facility] Last Admin: 08/15/19 10:34 Dose: 1,200 mg Isoniazid (Inh -) 300 mg PO DAILY [facility] Last Admin: 08/15/19 10:34 Dose: 300 mg Levothyroxine Sodium (Synthroid -) 50 mcg PO AM [facility] Last Admin: 08/15/19 06:58 Dose: 50 mcg Losartan Potassium (Cozaar -) 50 mg PO DAILY [facility] Last Admin: 08/15/19 10:33 Dose: 50 mg Metformin HCl (Glucophage Xr -) 1,000 mg PO BIDAC [facility] Last Admin: 08/15/19 06:58 Dose: 1,000 mg Metoprolol Succinate (Toprol Xl -) 50 mg PO DAILY [facility] Last Admin: 08/15/19 10:33 Dose: 50 mg Multivitamins/Minerals/Vitamin C (Tab-A-Vit -) 1 tab PO DAILY [facility] Last Admin: 08/15/19 10:33 Dose: 1 tab Ondansetron HCl (Zofran Injection) 8 mg IVPB Q8H PRN PRN Reason: NAUSEA Pyrazinamide (Pyrazinamide -) 1,500 mg PO DAILY [facility] Last Admin: 08/15/19 10:35 Dose: 1,500 mg Pyridoxine HCl (Vitamin B6 -) 50 mg PO DAILY [facility] Last Admin: 08/15/19 10:34 Dose: 50 mg Rifampin (Rifadin -) 600 mg PO DAILY [facility] Last Admin: 08/15/19 10:34 Dose: 600 mg A/P Pulmonary Tuberculosis Lactic Acidosis HTN DM Hypothyroidism Anemia - antibiotics per ID - f/u cultures/PCR - monitor LFTs - DVT prophylaxis
[2019-08-16] MEDS: LEVOTHYROXINE NA 50 MCG TABLET (FP) PO SCH (06:39)
--- NOTE | 2019-08-16 09:22 | PN ---
Progress Note (short form) - Note Progress Note: no new complaints, feeling better Laboratory Results - last 24 hr 08/15/19 08/15/19 08/15/19 07:45 07:45 16:36 WBC 6.8 RBC 4.78 Hgb 11.7 Hct 36.7 MCV 76.7 L MCH 24.6 L MCHC 32.0 RDW 18.8 H Plt Count 268 D MPV 8.9 Absolute Neuts (auto) 5.2 Neutrophils % 75.6 Lymphocytes % 11.2 D Monocytes % 8.1 D Eosinophils % 3.9 D Basophils % 1.2 Nucleated RBC % 0 Sodium 136 Potassium 4.0 Chloride 106 Carbon Dioxide 19 L Anion Gap 11 BUN 15.2 Creatinine 0.9 Est GFR (CKD-EPI)AfAm 93.82 Est GFR (CKD-EPI)NonAf 80.95 POC Glucometer 162 Random Glucose 199 H Calcium 8.8 Total Bilirubin 0.4 AST 24 ALT 14 Alkaline Phosphatase 88 Total Protein 6.2 L Albumin 2.3 L Vital Signs Period Temp Pulse Resp BP Sys/Garces Pulse Ox Last 24 Hr 97.4 F-98.1 F 72-89 18-20 116-167/65-79 96 Active Medications Acetaminophen (Tylenol -) 650 mg PO Q6H PRN PRN Reason: FEVER Last Admin: 08/13/19 12:38 Dose: 650 mg Ethambutol HCl (Myambutol -) 1,200 mg PO DAILY [facility] Last Admin: 08/15/19 10:34 Dose: 1,200 mg Isoniazid (Inh -) 300 mg PO DAILY [facility] Last Admin: 08/15/19 10:34 Dose: 300 mg Levothyroxine Sodium (Synthroid -) 50 mcg PO AM [facility] Last Admin: 08/16/19 06:39 Dose: 50 mcg Losartan Potassium (Cozaar -) 100 mg PO DAILY [facility] Last Admin: 08/15/19 16:38 Dose: 50 mg Metformin HCl (Glucophage Xr -) 1,000 mg PO BIDAC [facility] Last Admin: 08/16/19 06:38 Dose: 1,000 mg Metoprolol Succinate (Toprol Xl -) 50 mg PO DAILY [facility] Last Admin: 08/15/19 10:33 Dose: 50 mg Multivitamins/Minerals/Vitamin C (Tab-A-Vit -) 1 tab PO DAILY [facility] Last Admin: 08/15/19 10:33 Dose: 1 tab Ondansetron HCl (Zofran Injection) 8 mg IVPB Q8H PRN PRN Reason: NAUSEA Pyrazinamide (Pyrazinamide -) 1,500 mg PO DAILY [facility] Last Admin: 08/15/19 10:35 Dose: 1,500 mg Pyridoxine HCl (Vitamin B6 -) 50 mg PO DAILY [facility] Last Admin: 08/15/19 10:34 Dose: 50 mg Rifampin (Rifadin -) 600 mg PO DAILY [facility] Last Admin: 08/15/19 10:34 Dose: 600 mg s1s2 rrr scattered rhonchi-better no edema abd soft non tender nonfocal exam Pulmonary tuberculosis NIDDM hypothyrodism HTN last fever 24 hours ago isolation om TB meds consults appreciated monitor labs repeat sputum on Saturday, if smear negative will start dc planning home with dot Problem List - Problems (1) Diabetes mellitus Code(s): E11.9 - TYPE 2 DIABETES MELLITUS WITHOUT COMPLICATIONS Qualifiers: Diabetes mellitus type: type 2 Diabetes mellitus termite treater helper insulin use: without assisted use Diabetes mellitus complication status: without complication Qualified Code(s): E11.9 - Type 2 diabetes mellitus without complications (2) HTN (hypertension) Code(s): I10 - ESSENTIAL (PRIMARY) HYPERTENSION Qualifiers: Hypertension type: essential hypertension Qualified Code(s): I10 - Essential (primary) hypertension (3) Hyperlipidemia Code(s): E78.5 - HYPERLIPIDEMIA, UNSPECIFIED Qualifiers: Hyperlipidemia type: unspecified Qualified Code(s): E78.5 - Hyperlipidemia , unspecified (4) Hypothyroidism Code(s): E03.9 - HYPOTHYROIDISM, UNSPECIFIED Qualifiers: Hypothyroidism type: acquired Qualified Code(s): E03.9 - Hypothyroidism, unspecified (5) Cavitary lesion of lung Code(s): J98.4 - OTHER DISORDERS OF LUNG
[2019-08-16] MEDS ORDERED: PT OWN MED DRAWER 7, Y5N ONE (10:28)
[2019-08-16] MEDS: ISONIAZID 300 MG TABLET (FP) PO SCH (10:40)
[2019-08-16] MEDS: MULTIVITAMINS (DAILY MVI) TABLET (FP) PO SCH (10:40)
[2019-08-16] MEDS: PYRAZINAMIDE 500 MG TABLET PO SCH (10:40)
[2019-08-16] MEDS: LOSARTAN POTASSIUM 50 MG TABLET (FP) PO SCH (10:40)
[2019-08-16] MEDS: PYRIDOXINE HCL (B-6) 50 MG TABLET (FP) PO SCH (10:40)
[2019-08-16] MEDS: RIFAMPIN 300 MG CAPSULE PO SCH (10:40)
[2019-08-16] MEDS: ETHAMBUTOL HCL 400 MG TABLET PO SCH (11:49)
--- NOTE | 2019-08-16 12:09 | PN ---
Progress Note (short form) - Note Progress Note: PULMONARY Feels better. No fevers recorded. Vital Signs Period Temp Pulse Resp BP Sys/Garces Pulse Ox Last 24 Hr 97.5 F-98.1 F 72-89 18-20 116-167/65-77 96 Gen: NAD at rest Heart: RRR Lung: decreased breath sounds at the bases Abd: soft, nontender Ext: no edema CBC, BMP 08/15/19 07:45 08/15/19 07:45 Active Medications Acetaminophen (Tylenol -) 650 mg PO Q6H PRN PRN Reason: FEVER Last Admin: 08/13/19 12:38 Dose: 650 mg Ethambutol HCl (Myambutol -) 1,200 mg PO DAILY [facility] Last Admin: 08/16/19 11:49 Dose: 1,200 mg Isoniazid (Inh -) 300 mg PO DAILY [facility] Last Admin: 08/16/19 10:40 Dose: 300 mg Levothyroxine Sodium (Synthroid -) 50 mcg PO AM [facility] Last Admin: 08/16/19 06:39 Dose: 50 mcg Losartan Potassium (Cozaar -) 100 mg PO DAILY [facility] Last Admin: 08/16/19 10:40 Dose: 100 mg Metformin HCl (Glucophage Xr -) 1,000 mg PO BIDAC [facility] Last Admin: 08/16/19 06:38 Dose: 1,000 mg Metoprolol Succinate (Toprol Xl -) 50 mg PO DAILY [facility] Last Admin: 08/16/19 10:40 Dose: 50 mg Multivitamins/Minerals/Vitamin C (Tab-A-Vit -) 1 tab PO DAILY [facility] Last Admin: 08/16/19 10:40 Dose: 1 tab Ondansetron HCl (Zofran Injection) 8 mg IVPB Q8H PRN PRN Reason: NAUSEA Pyrazinamide (Pyrazinamide -) 1,500 mg PO DAILY [facility] Last Admin: 08/16/19 10:40 Dose: 1,500 mg Pyridoxine HCl (Vitamin B6 -) 50 mg PO DAILY [facility] Last Admin: 08/16/19 10:40 Dose: 50 mg Rifampin (Rifadin -) 600 mg PO DAILY [facility] Last Admin: 08/16/19 10:40 Dose: 600 mg Sodium Chloride (Normal Saline For Inhalation -) 3 ml IH Q6H PRN PRN Reason: COUGH Last Admin: 08/16/19 10:19 Dose: 3 ml A/P Pulmonary Tuberculosis Lactic Acidosis HTN DM Hypothyroidism Anemia - antibiotics per ID - monitor sputum AFB - monitor LFTs - DVT prophylaxis
[2019-08-17] MEDS ORDERED: PT OWN MED DRAWER 7, Y5N ONE ×3 (05:50→09:07)
[2019-08-17] MEDS: LEVOTHYROXINE NA 50 MCG TABLET (FP) PO SCH (06:08)
--- NOTE | 2019-08-17 08:00 | PN ---
Progress Note (short form) - Note Progress Note: no new complaints CBC, BMP 08/15/19 07:45 08/15/19 07:45 LFTs wnl Vital Signs Period Temp Pulse Resp BP Sys/Garces Pulse Ox Last 24 Hr 97.7 F-98.1 F 68-84 18-20 122-146/58-68 96-97 s1s2 rrr scattered rhonchi-better no edema abd soft non tender nonfocal exam Pulmonary tuberculosis NIDDM hypothyrodism HTN last fever 24 hours ago isolation om TB meds consults appreciated monitor labs repeat sputum x3, if smear negative will start dc planning home with dot labs tomorrow Problem List - Problems (1) Diabetes mellitus Code(s): E11.9 - TYPE 2 DIABETES MELLITUS WITHOUT COMPLICATIONS Qualifiers: Diabetes mellitus type: type 2 Diabetes mellitus mcfp insulin use: without truck terminal manager use Diabetes mellitus complication status: without complication Qualified Code(s): E11.9 - Type 2 diabetes mellitus without complications (2) HTN (hypertension) Code(s): I10 - ESSENTIAL (PRIMARY) HYPERTENSION Qualifiers: Hypertension type: essential hypertension Qualified Code(s): I10 - Essential (primary) hypertension (3) Hyperlipidemia Code(s): E78.5 - HYPERLIPIDEMIA, UNSPECIFIED Qualifiers: Hyperlipidemia type: unspecified Qualified Code(s): E78.5 - Hyperlipidemia , unspecified (4) Hypothyroidism Code(s): E03.9 - HYPOTHYROIDISM, UNSPECIFIED Qualifiers: Hypothyroidism type: acquired Qualified Code(s): E03.9 - Hypothyroidism, unspecified (5) Cavitary lesion of lung Code(s): J98.4 - OTHER DISORDERS OF LUNG
[2019-08-17] MEDS ORDERED: SODIUM CHLORIDE FOR INHALATION 3 ML VIAL.NEB IH PRN (09:23)
--- NOTE | 2019-08-17 09:49 | PN ---
Progress Note (short form) - Note Progress Note: Feels better. No fevers recorded. Intake & Output 08/14/19 08/15/19 08/16/19 08/17/19 23:59 23:59 23:59 23:59 Intake Total 1750 580 0 Balance 1750 580 0 Weight 141 lb 141 lb 5 oz 165 lb 6 oz 133 lb 9.6 oz Last Vital Signs Temp Pulse Resp BP Pulse Ox 97.7 F 68 20 146/64 97 08/17/19 06:00 08/17/19 06:00 08/17/19 06:00 08/17/19 06:00 08/16/19 21:00 Active Medications Acetaminophen (Tylenol -) 650 mg PO Q6H PRN PRN Reason: FEVER Last Admin: 08/13/19 12:38 Dose: 650 mg Ethambutol HCl (Myambutol -) 1,200 mg PO DAILY [facility] Last Admin: 08/16/19 11:49 Dose: 1,200 mg Isoniazid (Inh -) 300 mg PO DAILY [facility] Last Admin: 08/16/19 10:40 Dose: 300 mg Levothyroxine Sodium (Synthroid -) 50 mcg PO AM [facility] Last Admin: 08/17/19 06:08 Dose: 50 mcg Losartan Potassium (Cozaar -) 100 mg PO DAILY [facility] Last Admin: 08/16/19 10:40 Dose: 100 mg Metformin HCl (Glucophage Xr -) 1,000 mg PO BIDAC [facility] Last Admin: 08/17/19 06:08 Dose: 1,000 mg Metoprolol Succinate (Toprol Xl -) 50 mg PO DAILY [facility] Last Admin: 08/16/19 10:40 Dose: 50 mg Multivitamins/Minerals/Vitamin C (Tab-A-Vit -) 1 tab PO DAILY [facility] Last Admin: 08/16/19 10:40 Dose: 1 tab Ondansetron HCl (Zofran Injection) 8 mg IVPB Q8H PRN PRN Reason: NAUSEA Pyrazinamide (Pyrazinamide -) 1,500 mg PO DAILY [facility] Last Admin: 08/16/19 10:40 Dose: 1,500 mg Pyridoxine HCl (Vitamin B6 -) 50 mg PO DAILY [facility] Last Admin: 08/16/19 10:40 Dose: 50 mg Rifampin (Rifadin -) 600 mg PO DAILY [facility] Last Admin: 08/16/19 10:40 Dose: 600 mg Sodium Chloride (Normal Saline For Inhalation -) 3 ml IH Q6H PRN PRN Reason: COUGH Last Admin: 08/16/19 10:19 Dose: 3 ml Gen: NAD at rest Heart: RRR Lung: decreased breath sounds at the bases Abd: soft, nontender Ext: no edema Laboratory Results - last 24 hr 08/16/19 08/17/19 17:44 06:14 POC Glucometer 213 135 A/P Pulmonary Tuberculosis Lactic Acidosis HTN DM Hypothyroidism Anemia - antibiotics per ID - monitor sputum AFB - monitor LFTs - DVT prophylaxis Dr Das
[2019-08-17] MEDS: LOSARTAN POTASSIUM 50 MG TABLET (FP) PO SCH (11:48)
[2019-08-17] MEDS: ETHAMBUTOL HCL 400 MG TABLET PO SCH (11:49)
[2019-08-17] MEDS: MULTIVITAMINS (DAILY MVI) TABLET (FP) PO SCH (11:49)
[2019-08-17] MEDS: RIFAMPIN 300 MG CAPSULE PO SCH (11:49)
[2019-08-17] MEDS: PYRAZINAMIDE 500 MG TABLET PO SCH (11:50)
[2019-08-17] MEDS: ISONIAZID 300 MG TABLET (FP) PO SCH (11:51)
[2019-08-17] MEDS: PYRIDOXINE HCL (B-6) 50 MG TABLET (FP) PO SCH (11:53)
--- NOTE | 2019-08-17 12:16 | PN ---
Progress Note (short form) - Note Progress Note: day #6 RIPE feels much better no fevers Vital Signs Period Temp Pulse Resp BP Sys/Garces Pulse Ox Last 24 Hr 97.7 F-98.1 F 68-84 18-20 122-146/58-68 94-97 cor-rrr lungs clear abd soft,nt ext no edema 08/15/19 07:45 08/15/19 07:45 Microbiology 08/16/19 10:40 Sputum - Aerosol Induced AFB Smear Concentration - Preliminary 08/16/19 10:40 Sputum - Aerosol Induced Mycobacterial Culture - Preliminary 08/14/19 14:30 Sputum - Expectorated AFB Smear Concentration - Preliminary 08/14/19 14:30 Sputum - Expectorated Mycobacterial Culture - Preliminary 08/12/19 14:30 Blood - Peripheral Venous Blood Culture - Preliminary NO GROWTH OBTAINED AFTER 96 HOURS, INCUBATION TO CONTINUE FOR 1 DAYS. 08/12/19 14:30 Blood - Peripheral Venous Blood Culture - Preliminary NO GROWTH OBTAINED AFTER 96 HOURS, INCUBATION TO CONTINUE FOR 1 DAYS. 08/12/19 12:10 Urine - Urine Clean Catch Urine Culture - Final NO GROWTH OBTAINED 08/11/19 11:20 Sputum - Expectorated Gram Stain - Final 08/11/19 11:20 Sputum - Expectorated Sputum Culture - Final NORMAL RESPIRATORY FREDDY 08/11/19 11:20 Sputum - Expectorated AFB Smear Concentration - Final 08/11/19 11:20 Sputum - Expectorated Mycobacterial Culture - Preliminary 08/10/19 11:20 Bronchial Washings - Right Lower Lobe AFB Smear Concentration - Final 08/10/19 11:20 Bronchial Washings - Right Lower Lobe Mycobacterial Culture - Preliminary 08/10/19 13:05 Bronchial Washings - Right Lower Lobe Gram Stain - Final 08/10/19 13:05 Bronchial Washings - Right Lower Lobe Bronchoalveolar Lavage Culture - Final 08/10/19 11:20 Bronchial Washings - Right Lower Lobe BRISSA Preparation - Preliminary 08/10/19 11:20 Bronchial Washings - Right Lower Lobe Fungal Culture - Preliminary 08/05/19 10:55 Blood - Peripheral Venous Blood Culture - Final NO GROWTH AFTER 5 DAYS INCUBATION 08/05/19 10:55 Blood - Peripheral Venous Blood Culture - Final NO GROWTH AFTER 5 DAYS INCUBATION a/p fevers-resolved MTB on RIPE/vit B6 d/w ABDIRASHID- they will f/u with patient at discharge 2 sputum afb sent 1 more needed- d/w RN if negative smears he can go home on DOT afb isolation to continue follow lfts on RIPE d/w PMD Problem List - Problems (1) Abnormal CT scan, chest Code(s): R93.89 - ABNORMAL FINDINGS ON DX IMAGING OF OTH BODY STRUCTURES (2) Cavitary lesion of lung Code(s): J98.4 - OTHER DISORDERS OF LUNG (3) Diabetes mellitus Code(s): E11.9 - TYPE 2 DIABETES MELLITUS WITHOUT COMPLICATIONS Qualifiers: Diabetes mellitus type: type 2 Diabetes mellitus petroleum terminal plant operator insulin use: without petroleum terminal plant operator use Diabetes mellitus complication status: without complication Qualified Code(s): E11.9 - Type 2 diabetes mellitus without complications
[2019-08-17] MEDS ORDERED: INSULIN (NOVOLOG) ASPART 100 UNITS/ML 10ML VIAL ONE (17:02)
[2019-08-18] MEDS ORDERED: PT OWN MED DRAWER 7, Y5N ONE ×3 (06:10→08:58)
[2019-08-18] MEDS: LEVOTHYROXINE NA 50 MCG TABLET (FP) PO SCH (06:16)
--- NOTE | 2019-08-18 08:28 | PN ---
Progress Note (short form) - Note Progress Note: no new complaints Vital Signs Period Temp Pulse Resp BP Sys/Garces Pulse Ox Last 24 Hr 97.7 F-98.1 F 67-78 18-20 128-147/46-58 94-94 Active Medications Acetaminophen (Tylenol -) 650 mg PO Q6H PRN PRN Reason: FEVER Last Admin: 08/13/19 12:38 Dose: 650 mg Ethambutol HCl (Myambutol -) 1,200 mg PO DAILY [facility] Last Admin: 08/17/19 11:49 Dose: 1,200 mg Isoniazid (Inh -) 300 mg PO DAILY [facility] Last Admin: 08/17/19 11:51 Dose: 300 mg Levothyroxine Sodium (Synthroid -) 50 mcg PO AM [facility] Last Admin: 08/18/19 06:16 Dose: 50 mcg Losartan Potassium (Cozaar -) 100 mg PO DAILY [facility] Last Admin: 08/17/19 11:48 Dose: 100 mg Metformin HCl (Glucophage Xr -) 1,000 mg PO BIDAC [facility] Last Admin: 08/18/19 06:56 Dose: 1,000 mg Metoprolol Succinate (Toprol Xl -) 50 mg PO DAILY [facility] Last Admin: 08/17/19 11:49 Dose: 50 mg Multivitamins/Minerals/Vitamin C (Tab-A-Vit -) 1 tab PO DAILY [facility] Last Admin: 08/17/19 11:49 Dose: 1 tab Ondansetron HCl (Zofran Injection) 8 mg IVPB Q8H PRN PRN Reason: NAUSEA Pyrazinamide (Pyrazinamide -) 1,500 mg PO DAILY [facility] Last Admin: 08/17/19 11:50 Dose: 1,500 mg Pyridoxine HCl (Vitamin B6 -) 50 mg PO DAILY [facility] Last Admin: 08/17/19 11:53 Dose: 50 mg Rifampin (Rifadin -) 600 mg PO DAILY [facility] Last Admin: 08/17/19 11:49 Dose: 600 mg Sodium Chloride (Normal Saline For Inhalation -) 3 ml IH Q6H PRN PRN Reason: COUGH Last Admin: 08/16/19 10:19 Dose: 3 ml s1s2 rrr lungs cta no edema abd soft non tender nonfocal exam Pulmonary tuberculosis NIDDM hypothyrodism HTN isolation om TB meds consults appreciated monitor labs today repeat sputum needs one more, if smear negative will start dc planning home with dot Problem List - Problems (1) Diabetes mellitus Code(s): E11.9 - TYPE 2 DIABETES MELLITUS WITHOUT COMPLICATIONS Qualifiers: Diabetes mellitus type: type 2 Diabetes mellitus nursing home insulin use: without terminal clerk use Diabetes mellitus complication status: without complication Qualified Code(s): E11.9 - Type 2 diabetes mellitus without complications (2) HTN (hypertension) Code(s): I10 - ESSENTIAL (PRIMARY) HYPERTENSION Qualifiers: Hypertension type: essential hypertension Qualified Code(s): I10 - Essential (primary) hypertension (3) Hyperlipidemia Code(s): E78.5 - HYPERLIPIDEMIA, UNSPECIFIED Qualifiers: Hyperlipidemia type: unspecified Qualified Code(s): E78.5 - Hyperlipidemia , unspecified (4) Hypothyroidism Code(s): E03.9 - HYPOTHYROIDISM, UNSPECIFIED Qualifiers: Hypothyroidism type: acquired Qualified Code(s): E03.9 - Hypothyroidism, unspecified (5) Cavitary lesion of lung Code(s): J98.4 - OTHER DISORDERS OF LUNG
[2019-08-18 08:58] LABS: BASO % 0.9 % (0-2.0); EOS % 1.9 % (0-4.5); HEMATOCRIT 37.2 % (35.4-49); HEMOGLOBIN 12.1 GM/dL (11.7-16.9); LYMPH % 16.8 % (8-40); MCH 24.6 pg (25.7-33.7); MCHC 32.5 g/dl (32.0-35.9); MEAN CELL VOLUME 75.6 fl (80-96); MEAN PLT VOLUME 8.5 fl (7.5-11.1); MONO % 5.8 % (3.8-10.2); NEUT % 74.6 % (42.8-82.8); PLATELET COUNT 397 K/MM3 (134-434); RBC 4.92 M/mm3 (4.00-5.60); RDW 18.7 % (11.9-15.9); WHITE BLOOD COUNT 9.9 K/mm3 (4.0-10.0)
--- NOTE | 2019-08-18 09:31 | PN ---
Progress Note (short form) - Note Progress Note: No CP or SOB. No fevers recorded. No acute events overnight. Intake & Output 08/15/19 08/16/19 08/17/19 08/18/19 23:59 23:59 23:59 23:59 Intake Total 580 0 710 Balance 580 0 710 Weight 141 lb 5 oz 165 lb 6 oz 133 lb 9.6 oz 132 lb 8 oz Last Vital Signs Temp Pulse Resp BP Pulse Ox 98 F 76 20 134/50 L 94 L 08/18/19 06:00 08/18/19 06:00 08/18/19 06:00 08/18/19 06:00 08/17/19 21:00 Active Medications Acetaminophen (Tylenol -) 650 mg PO Q6H PRN PRN Reason: FEVER Last Admin: 08/13/19 12:38 Dose: 650 mg Ethambutol HCl (Myambutol -) 1,200 mg PO DAILY [facility] Last Admin: 08/17/19 11:49 Dose: 1,200 mg Isoniazid (Inh -) 300 mg PO DAILY [facility] Last Admin: 08/17/19 11:51 Dose: 300 mg Levothyroxine Sodium (Synthroid -) 50 mcg PO AM [facility] Last Admin: 08/18/19 06:16 Dose: 50 mcg Losartan Potassium (Cozaar -) 100 mg PO DAILY [facility] Last Admin: 08/17/19 11:48 Dose: 100 mg Metformin HCl (Glucophage Xr -) 1,000 mg PO BIDAC [facility] Last Admin: 08/18/19 06:56 Dose: 1,000 mg Metoprolol Succinate (Toprol Xl -) 50 mg PO DAILY [facility] Last Admin: 08/17/19 11:49 Dose: 50 mg Multivitamins/Minerals/Vitamin C (Tab-A-Vit -) 1 tab PO DAILY [facility] Last Admin: 08/17/19 11:49 Dose: 1 tab Ondansetron HCl (Zofran Injection) 8 mg IVPB Q8H PRN PRN Reason: NAUSEA Pyrazinamide (Pyrazinamide -) 1,500 mg PO DAILY [facility] Last Admin: 08/17/19 11:50 Dose: 1,500 mg Pyridoxine HCl (Vitamin B6 -) 50 mg PO DAILY [facility] Last Admin: 08/17/19 11:53 Dose: 50 mg Rifampin (Rifadin -) 600 mg PO DAILY [facility] Last Admin: 08/17/19 11:49 Dose: 600 mg Sodium Chloride (Normal Saline For Inhalation -) 3 ml IH Q6H PRN PRN Reason: COUGH Last Admin: 08/16/19 10:19 Dose: 3 ml Gen: NAD at rest Heart: RRR Lung: decreased breath sounds at the bases Abd: soft, nontender Ext: no edema Laboratory Results - last 24 hr 08/17/19 08/17/19 08/18/19 11:47 17:13 06:04 WBC RBC Hgb Hct MCV MCH MCHC RDW Plt Count MPV Absolute Neuts (auto) Neutrophils % Lymphocytes % Monocytes % Eosinophils % Basophils % Nucleated RBC % POC Glucometer 213 197 151 08/18/19 07:05 WBC 9.9 RBC 4.92 Hgb 12.1 Hct 37.2 MCV 75.6 L MCH 24.6 L MCHC 32.5 RDW 18.7 H Plt Count 397 D MPV 8.5 Absolute Neuts (auto) 7.4 Neutrophils % 74.6 Lymphocytes % 16.8 D Monocytes % 5.8 Eosinophils % 1.9 Basophils % 0.9 Nucleated RBC % 0 POC Glucometer A/P Pulmonary Tuberculosis Lactic Acidosis HTN DM Hypothyroidism Anemia - antibiotics per ID - monitor sputum AFB - monitor LFTs - DVT prophylaxis Dr Das
[2019-08-18 10:19] LABS: ALBUMIN 2.8 g/dl (3.4-5.0); BILIRUBIN,TOTAL 0.3 mg/dL (0.2-1); BLOOD UREA NITROGEN 23.2 mg/dL (7-18); CALCIUM 10.3 mg/dL (8.5-10.1); CREATININE 1.1 mg/dL (0.55-1.3); POTASSIUM 4.5 mmol/L (3.5-5.1); TOT PROT 6.9 g/dl (6.4-8.2)
[2019-08-18 10:39] LABS: ANISOCYTOSIS 1+; PLATELET ESTIMATE NORMAL
[2019-08-18] MEDS: RIFAMPIN 300 MG CAPSULE PO SCH (10:52)
[2019-08-18] MEDS: LOSARTAN POTASSIUM 50 MG TABLET (FP) PO SCH (10:53)
[2019-08-18] MEDS: PYRIDOXINE HCL (B-6) 50 MG TABLET (FP) PO SCH (10:53)
[2019-08-18] MEDS: ETHAMBUTOL HCL 400 MG TABLET PO SCH (10:53)
[2019-08-18] MEDS: MULTIVITAMINS (DAILY MVI) TABLET (FP) PO SCH (10:53)
[2019-08-18] MEDS: ISONIAZID 300 MG TABLET (FP) PO SCH (10:53)
[2019-08-18] MEDS: PYRAZINAMIDE 500 MG TABLET PO SCH (13:19)
[2019-08-19] MEDS: LEVOTHYROXINE NA 50 MCG TABLET (FP) PO SCH (06:37)
[2019-08-19] MEDS ORDERED: PT OWN MED DRAWER 7, Y5N ONE ×4 (06:38→17:54)
--- NOTE | 2019-08-19 08:23 | PN ---
Progress Note (short form) - Note Progress Note: no new complaints CBC, BMP 08/18/19 07:05 08/18/19 07:05 Vital Signs Period Temp Pulse Resp BP Sys/Garces Pulse Ox Last 24 Hr 97.5 F-98.6 F 68-107 20-20 137-149/61-87 94-95 s1s2 rrr lungs cta no edema abd soft non tender nonfocal exam Pulmonary tuberculosis NIDDM hypothyrodism HTN isolation om TB meds consults appreciated tolerating treatment well repeat sputum: needs two more negative to start dc planning home with dot Problem List - Problems (1) Diabetes mellitus Code(s): E11.9 - TYPE 2 DIABETES MELLITUS WITHOUT COMPLICATIONS Qualifiers: Diabetes mellitus type: type 2 Diabetes mellitus prison insulin use: without aerospace project engineer use Diabetes mellitus complication status: without complication Qualified Code(s): E11.9 - Type 2 diabetes mellitus without complications (2) HTN (hypertension) Code(s): I10 - ESSENTIAL (PRIMARY) HYPERTENSION Qualifiers: Hypertension type: essential hypertension Qualified Code(s): I10 - Essential (primary) hypertension (3) Hyperlipidemia Code(s): E78.5 - HYPERLIPIDEMIA, UNSPECIFIED Qualifiers: Hyperlipidemia type: unspecified Qualified Code(s): E78.5 - Hyperlipidemia , unspecified (4) Hypothyroidism Code(s): E03.9 - HYPOTHYROIDISM, UNSPECIFIED Qualifiers: Hypothyroidism type: acquired Qualified Code(s): E03.9 - Hypothyroidism, unspecified (5) Cavitary lesion of lung Code(s): J98.4 - OTHER DISORDERS OF LUNG
[2019-08-19] MEDS: LOSARTAN POTASSIUM 50 MG TABLET (FP) PO SCH (10:32)
[2019-08-19] MEDS: MULTIVITAMINS (DAILY MVI) TABLET (FP) PO SCH (10:32)
[2019-08-19] MEDS: ISONIAZID 300 MG TABLET (FP) PO SCH (10:33)
[2019-08-19] MEDS: PYRAZINAMIDE 500 MG TABLET PO SCH (10:33)
[2019-08-19] MEDS: PYRIDOXINE HCL (B-6) 50 MG TABLET (FP) PO SCH (10:34)
[2019-08-19] MEDS: RIFAMPIN 300 MG CAPSULE PO SCH (10:34)
[2019-08-19] MEDS: ETHAMBUTOL HCL 400 MG TABLET PO SCH (10:35)
--- NOTE | 2019-08-19 15:14 | PN ---
Progress Note (short form) - Note Progress Note: day #8 R[place] no complaints Vital Signs Period Temp Pulse Resp BP Sys/Garces Pulse Ox Last 24 Hr 97.4 F-98.5 F 69-79 20-20 100-149/58-69 95-95 cor-rrr lungs clear abd soft,nt ext no edema CBC, BMP 08/18/19 07:05 08/18/19 07:05 Microbiology 08/16/19 10:40 Sputum - Aerosol Induced AFB Smear Concentration - Final 08/16/19 10:40 Sputum - Aerosol Induced Mycobacterial Culture - Preliminary 08/12/19 14:30 Blood - Peripheral Venous Blood Culture - Final NO GROWTH AFTER 5 DAYS INCUBATION 08/12/19 14:30 Blood - Peripheral Venous Blood Culture - Final NO GROWTH AFTER 5 DAYS INCUBATION 08/14/19 14:30 Sputum - Expectorated AFB Smear Concentration - Preliminary 08/14/19 14:30 Sputum - Expectorated Mycobacterial Culture - Preliminary 08/12/19 12:10 Urine - Urine Clean Catch Urine Culture - Final NO GROWTH OBTAINED 08/11/19 11:20 Sputum - Expectorated Gram Stain - Final 08/11/19 11:20 Sputum - Expectorated Sputum Culture - Final NORMAL RESPIRATORY FREDDY 08/11/19 11:20 Sputum - Expectorated AFB Smear Concentration - Final 08/11/19 11:20 Sputum - Expectorated Mycobacterial Culture - Preliminary 08/10/19 11:20 Bronchial Washings - Right Lower Lobe AFB Smear Concentration - Final 08/10/19 11:20 Bronchial Washings - Right Lower Lobe Mycobacterial Culture - Preliminary 08/10/19 13:05 Bronchial Washings - Right Lower Lobe Gram Stain - Final 08/10/19 13:05 Bronchial Washings - Right Lower Lobe Bronchoalveolar Lavage Culture - Final 08/10/19 11:20 Bronchial Washings - Right Lower Lobe BRISSA Preparation - Preliminary 08/10/19 11:20 Bronchial Washings - Right Lower Lobe Fungal Culture - Preliminary 08/05/19 10:55 Blood - Peripheral Venous Blood Culture - Final NO GROWTH AFTER 5 DAYS INCUBATION 08/05/19 10:55 Blood - Peripheral Venous Blood Culture - Final NO GROWTH AFTER 5 DAYS INCUBATION a/p fevers-resolved MTB on RIPE/vit B6 d/w ABDIRASHID- they will f/u with patient at discharge one sputuma afb negative second one sent today third sputum needs to be sent- if thre sputum afbs are negative he can go home on 08/26 will need to stay until 08/26 afb isolation to continue follow lfts on R[place] d/w PMD Problem List - Problems (1) Abnormal CT scan, chest Code(s): R93.89 - ABNORMAL FINDINGS ON DX IMAGING OF OTH BODY STRUCTURES (2) Cavitary lesion of lung Code(s): J98.4 - OTHER DISORDERS OF LUNG (3) Diabetes mellitus Code(s): E11.9 - TYPE 2 DIABETES MELLITUS WITHOUT COMPLICATIONS Qualifiers: Diabetes mellitus type: type 2 Diabetes mellitus moth exterminator insulin use: without moth exterminator use Diabetes mellitus complication status: without complication Qualified Code(s): E11.9 - Type 2 diabetes mellitus without complications
--- NOTE | 2019-08-19 15:22 | PN ---
Progress Note, Physician History of Present Illness: pulmonary alert,comfortable,-sob - Current Medication List Current Medications: Active Medications Acetaminophen (Tylenol -) 650 mg PO Q6H PRN PRN Reason: FEVER Last Admin: 08/13/19 12:38 Dose: 650 mg Ethambutol HCl (Myambutol -) 1,200 mg PO DAILY [facility] Last Admin: 08/19/19 10:35 Dose: 1,200 mg Isoniazid (Inh -) 300 mg PO DAILY [facility] Last Admin: 08/19/19 10:33 Dose: 300 mg Levothyroxine Sodium (Synthroid -) 50 mcg PO AM [facility] Last Admin: 08/19/19 06:37 Dose: 50 mcg Losartan Potassium (Cozaar -) 100 mg PO DAILY [facility] Last Admin: 08/19/19 10:32 Dose: 100 mg Metformin HCl (Glucophage Xr -) 1,000 mg PO BIDAC [facility] Last Admin: 08/19/19 06:36 Dose: 1,000 mg Metoprolol Succinate (Toprol Xl -) 50 mg PO DAILY [facility] Last Admin: 08/19/19 10:32 Dose: 50 mg Multivitamins/Minerals/Vitamin C (Tab-A-Vit -) 1 tab PO DAILY [facility] Last Admin: 08/19/19 10:32 Dose: 1 tab Ondansetron HCl (Zofran Injection) 8 mg IVPB Q8H PRN PRN Reason: NAUSEA Pyrazinamide (Pyrazinamide -) 1,500 mg PO DAILY [facility] Last Admin: 08/19/19 10:33 Dose: 1,500 mg Pyridoxine HCl (Vitamin B6 -) 50 mg PO DAILY [facility] Last Admin: 08/19/19 10:34 Dose: 50 mg Rifampin (Rifadin -) 600 mg PO DAILY [facility] Last Admin: 08/19/19 10:34 Dose: 600 mg Sodium Chloride (Normal Saline For Inhalation -) 3 ml IH Q6H PRN PRN Reason: COUGH Last Admin: 08/16/19 10:19 Dose: 3 ml - Objective Vital Signs: Vital Signs Temperature 97.4 F L 08/19/19 09:30 Pulse Rate 75 08/19/19 09:30 Respiratory Rate 20 08/19/19 09:30 Blood Pressure 100/58 L 08/19/19 09:30 O2 Sat by Pulse Oximetry (%) 95 08/19/19 09:00 Constitutional: Yes: Calm, Thin Eyes: Yes: WNL HENT: Yes: WNL Neck: Yes: WNL Cardiovascular: Yes: Regular Rate and Rhythm, S1, S2 Respiratory: Yes: CTA Bilaterally Gastrointestinal: Yes: Normal Bowel Sounds, Soft Extremities: Yes: WNL Edema: No Labs: Problem List - Problems (1) Cavitary lesion of lung Code(s): J98.4 - OTHER DISORDERS OF LUNG (2) Diabetes mellitus Code(s): E11.9 - TYPE 2 DIABETES MELLITUS WITHOUT COMPLICATIONS Qualifiers: Diabetes mellitus type: type 2 Diabetes mellitus truck terminal manager insulin use: without truck terminal manager use Diabetes mellitus complication status: without complication Qualified Code(s): E11.9 - Type 2 diabetes mellitus without complications (3) HTN (hypertension) Code(s): I10 - ESSENTIAL (PRIMARY) HYPERTENSION Qualifiers: Hypertension type: essential hypertension Qualified Code(s): I10 - Essential (primary) hypertension (4) Hyperlipidemia Code(s): E78.5 - HYPERLIPIDEMIA, UNSPECIFIED Qualifiers: Hyperlipidemia type: unspecified Qualified Code(s): E78.5 - Hyperlipidemia , unspecified (5) Hypothyroidism Code(s): E03.9 - HYPOTHYROIDISM, UNSPECIFIED Qualifiers: Hypothyroidism type: acquired Qualified Code(s): E03.9 - Hypothyroidism, unspecified (6) Pulmonary TB Code(s): A15.0 - TUBERCULOSIS OF LUNG Assessment/Plan A/P Pulmonary Tuberculosis Lactic Acidosis HTN DM Hypothyroidism Anemia Hypercalcemia - antibiotics per ID - monitor sputum AFB - monitor LFTs,calcium level - DVT prophylaxis DR GARZA
[2019-08-20] MEDS: LEVOTHYROXINE NA 50 MCG TABLET (FP) PO SCH (06:15)
--- NOTE | 2019-08-20 09:48 | PN ---
Progress Note (short form) - Note Progress Note: PULMONARY OFFERS NO COMPLAINTS VSS/AFEBRILE Constitutional: Yes: Calm, Thin Eyes: Yes: WNL HENT: Yes: WNL Neck: Yes: WNL Cardiovascular: Yes: Regular Rate and Rhythm, S1, S2 Respiratory: Yes: CTA Bilaterally Gastrointestinal: Yes: Normal Bowel Sounds, Soft Extremities: Yes: WNL Edema: No Labs: NOTED A/P Pulmonary Tuberculosis Lactic Acidosis HTN DM Hypothyroidism Anemia Hypercalcemia - antibiotics per ID - monitor sputum AFB - monitor LFTs,calcium level - DVT prophylaxis Austen CEE MD
[2019-08-20] MEDS: LOSARTAN POTASSIUM 50 MG TABLET (FP) PO SCH (10:22)
[2019-08-20] MEDS: RIFAMPIN 300 MG CAPSULE PO SCH (10:23)
[2019-08-20] MEDS: PYRAZINAMIDE 500 MG TABLET PO SCH (10:23)
[2019-08-20] MEDS: ETHAMBUTOL HCL 400 MG TABLET PO SCH (10:24)
[2019-08-20] MEDS: MULTIVITAMINS (DAILY MVI) TABLET (FP) PO SCH (10:24)
[2019-08-20] MEDS: ISONIAZID 300 MG TABLET (FP) PO SCH (10:24)
[2019-08-20] MEDS: PYRIDOXINE HCL (B-6) 50 MG TABLET (FP) PO SCH (10:24)
[2019-08-20] MEDS ORDERED: PT OWN MED DRAWER 7, Y5N ONE (17:09)
[2019-08-21] MEDS: LEVOTHYROXINE NA 50 MCG TABLET (FP) PO SCH (06:26)
[2019-08-21 08:36] LABS: BASO % 1.7 % (0-2.0); EOS % 1.5 % (0-4.5); HEMOGLOBIN 13.1 GM/dL (11.7-16.9); MCH 25.1 pg (25.7-33.7); MCHC 32.7 g/dl (32.0-35.9); MEAN CELL VOLUME 76.8 fl (80-96); MEAN PLT VOLUME 8.3 fl (7.5-11.1); NEUT % 75.8 % (42.8-82.8); PLATELET COUNT 357 K/MM3 (134-434); RBC 5.21 M/mm3 (4.00-5.60); RDW 18.7 % (11.9-15.9); WHITE BLOOD COUNT 9.5 K/mm3 (4.0-10.0)
[2019-08-21 09:07] LABS: ALBUMIN 2.8 g/dl (3.4-5.0); BILIRUBIN,TOTAL 0.2 mg/dL (0.2-1); BLOOD UREA NITROGEN 36.5 mg/dL (7-18); CALCIUM 9.4 mg/dL (8.5-10.1); CREATININE 1.3 mg/dL (0.55-1.3); POTASSIUM 4.8 mmol/L (3.5-5.1); TOT PROT 6.7 g/dl (6.4-8.2)
[2019-08-21] MEDS: MULTIVITAMINS (DAILY MVI) TABLET (FP) PO SCH (10:37)
[2019-08-21] MEDS: LOSARTAN POTASSIUM 50 MG TABLET (FP) PO SCH (10:37)
[2019-08-21] MEDS: PYRIDOXINE HCL (B-6) 50 MG TABLET (FP) PO SCH (10:38)
[2019-08-21] MEDS: PYRAZINAMIDE 500 MG TABLET PO SCH (10:38)
[2019-08-21] MEDS: RIFAMPIN 300 MG CAPSULE PO SCH (10:38)
[2019-08-21] MEDS: ETHAMBUTOL HCL 400 MG TABLET PO SCH (10:39)
[2019-08-21] MEDS: ISONIAZID 300 MG TABLET (FP) PO SCH (10:39)
--- NOTE | 2019-08-21 11:06 | PN ---
Progress Note (short form) - Note Progress Note: day #10 RIPE no complaints feels well, no abdominal pain Vital Signs Period Temp Pulse Resp BP Sys/Garces Pulse Ox Last 24 Hr 97.4 F-98.4 F 65-70 18-20 129-156/56-86 97 cor-rrr lungs clear abd soft,nt no RUQ pain ext no edema CBC, BMP 08/21/19 08:00 08/21/19 08:00 Microbiology 08/16/19 10:40 Sputum - Aerosol Induced AFB Smear Concentration - Final 08/16/19 10:40 Sputum - Aerosol Induced Mycobacterial Culture - Preliminary 08/12/19 14:30 Blood - Peripheral Venous Blood Culture - Final NO GROWTH AFTER 5 DAYS INCUBATION 08/12/19 14:30 Blood - Peripheral Venous Blood Culture - Final NO GROWTH AFTER 5 DAYS INCUBATION 08/14/19 14:30 Sputum - Expectorated AFB Smear Concentration - Preliminary 08/14/19 14:30 Sputum - Expectorated Mycobacterial Culture - Preliminary 08/12/19 12:10 Urine - Urine Clean Catch Urine Culture - Final NO GROWTH OBTAINED 08/11/19 11:20 Sputum - Expectorated Gram Stain - Final 08/11/19 11:20 Sputum - Expectorated Sputum Culture - Final NORMAL RESPIRATORY FREDDY 08/11/19 11:20 Sputum - Expectorated AFB Smear Concentration - Final 08/11/19 11:20 Sputum - Expectorated Mycobacterial Culture - Preliminary 08/10/19 11:20 Bronchial Washings - Right Lower Lobe AFB Smear Concentration - Final 08/10/19 11:20 Bronchial Washings - Right Lower Lobe Mycobacterial Culture - Preliminary 08/10/19 13:05 Bronchial Washings - Right Lower Lobe Gram Stain - Final 08/10/19 13:05 Bronchial Washings - Right Lower Lobe Bronchoalveolar Lavage Culture - Final 08/10/19 11:20 Bronchial Washings - Right Lower Lobe BRISSA Preparation - Preliminary 08/10/19 11:20 Bronchial Washings - Right Lower Lobe Fungal Culture - Preliminary 08/05/19 10:55 Blood - Peripheral Venous Blood Culture - Final NO GROWTH AFTER 5 DAYS INCUBATION 08/05/19 10:55 Blood - Peripheral Venous Blood Culture - Final NO GROWTH AFTER 5 DAYS INCUBATION a/p fevers-resolved MTB on RIPE/vit B6 d/w ABDIRASHID- they will f/u with patient at discharge one sputum afb negative second one sent today-pending third sputum needs to be sent- if three sputum afbs are negative he can go home on 08/26 will need to stay until 08/26 afb isolation to continue follow lfts on RIPE-starting to rise, bili and alk phos normal- daily LFTS- d/w nurse-to call me daily before giving RIPE ruq US d/w PMD Problem List - Problems (1) Abnormal CT scan, chest Code(s): R93.89 - ABNORMAL FINDINGS ON DX IMAGING OF OTH BODY STRUCTURES (2) Cavitary lesion of lung Code(s): J98.4 - OTHER DISORDERS OF LUNG (3) Diabetes mellitus Code(s): E11.9 - TYPE 2 DIABETES MELLITUS WITHOUT COMPLICATIONS Qualifiers: Diabetes mellitus type: type 2 Diabetes mellitus fpc insulin use: without watermelon inspector use Diabetes mellitus complication status: without complication Qualified Code(s): E11.9 - Type 2 diabetes mellitus without complications
--- NOTE | 2019-08-21 16:56 | PN ---
Progress Note (short form) - Note Progress Note: Vital Signs Period Temp Pulse Resp BP Sys/Garces Pulse Ox Last 24 Hr 97.1 F-98.4 F 63-70 20-20 129-156/56-69 97-97 CBC, BMP 08/21/19 08:00 08/21/19 08:00 1s2 rrr lungs cta no edema abd soft non tender nonfocal exam Pulmonary tuberculosis NIDDM hypothyrodism HTN isolation om TB meds consults appreciated tolerating treatment well Current Medications Ethambutol HCl (Myambutol -) 1,200 mg PO DAILY [facility] Last Admin: 08/21/19 10:39 Dose: 1,200 mg Isoniazid (Inh -) 300 mg PO DAILY [facility] Last Admin: 08/21/19 10:39 Dose: 300 mg Levothyroxine Sodium (Synthroid -) 50 mcg PO AM [facility] Last Admin: 08/21/19 06:26 Dose: 50 mcg Losartan Potassium (Cozaar -) 100 mg PO DAILY [facility] Last Admin: 08/21/19 10:37 Dose: 100 mg Metformin HCl (Glucophage Xr -) 1,000 mg PO BIDAC [facility] Last Admin: 08/21/19 06:26 Dose: 1,000 mg Metoprolol Succinate (Toprol Xl -) 50 mg PO DAILY [facility] Last Admin: 08/21/19 10:37 Dose: 50 mg Multivitamins/Minerals/Vitamin C (Tab-A-Vit -) 1 tab PO DAILY [facility] Last Admin: 08/21/19 10:37 Dose: 1 tab Ondansetron HCl (Zofran Injection) 8 mg IVPB Q8H PRN PRN Reason: NAUSEA Pyrazinamide (Pyrazinamide -) 1,500 mg PO DAILY [facility] Last Admin: 08/21/19 10:38 Dose: 1,500 mg Pyridoxine HCl (Vitamin B6 -) 50 mg PO DAILY [facility] Last Admin: 08/21/19 10:38 Dose: 50 mg Rifampin (Rifadin -) 600 mg PO DAILY [facility] Last Admin: 08/21/19 10:38 Dose: 600 mg Sodium Chloride (Normal Saline For Inhalation -) 3 ml IH Q6H PRN PRN Reason: COUGH Last Admin: 08/16/19 10:19 Dose: 3 ml repeat sputum: needs two more negative to start dc planning home with dot
[2019-08-22] MEDS: LEVOTHYROXINE NA 50 MCG TABLET (FP) PO SCH (07:16)
[2019-08-22 08:58] LABS: ALBUMIN 2.9 g/dl (3.4-5.0); BILIRUBIN,TOTAL 0.3 mg/dL (0.2-1); BLOOD UREA NITROGEN 39.4 mg/dL (7-18); CALCIUM 10.1 mg/dL (8.5-10.1); CREATININE 1.5 mg/dL (0.55-1.3); POTASSIUM 5.4 mmol/L (3.5-5.1); TOT PROT 7.2 g/dl (6.4-8.2)
--- NOTE | 2019-08-22 10:55 | PN ---
Progress Note (short form) - Note Progress Note: PULMONARY VSS/AFEBRILE LFT'S ARE RISING Constitutional: Yes: Calm, Thin Eyes: Yes: WNL HENT: Yes: WNL Neck: Yes: WNL Cardiovascular: Yes: Regular Rate and Rhythm, S1, S2 Respiratory: Yes: CTA Bilaterally Gastrointestinal: Yes: Normal Bowel Sounds, Soft Extremities: Yes: WNL Edema: No Labs: NOTED A/P Pulmonary Tuberculosis Lactic Acidosis HTN DM Hypothyroidism Anemia Hypercalcemia - antibiotics per ID - monitor LFTs,calcium level - DVT prophylaxis Austen CEE MD
[2019-08-22] MEDS ORDERED: PT OWN MED DRAWER 7, Y5N ONE ×2 (10:57→16:33)
[2019-08-22] MEDS: LOSARTAN POTASSIUM 50 MG TABLET (FP) PO SCH (11:09)
[2019-08-22] MEDS: PYRAZINAMIDE 500 MG TABLET PO SCH (11:09)
[2019-08-22] MEDS: MULTIVITAMINS (DAILY MVI) TABLET (FP) PO SCH (11:10)
[2019-08-22] MEDS: RIFAMPIN 300 MG CAPSULE PO SCH (11:10)
[2019-08-22] MEDS: PYRIDOXINE HCL (B-6) 50 MG TABLET (FP) PO SCH (11:10)
[2019-08-22] MEDS: ISONIAZID 300 MG TABLET (FP) PO SCH (11:10)
[2019-08-22] MEDS: ETHAMBUTOL HCL 400 MG TABLET PO SCH ×2 (11:11→11:21)
--- NOTE | 2019-08-22 16:23 | PN ---
Progress Note (short form) - Note Progress Note: day #11 RIPE no complaints feels well, no abdominal pain feels imllproved sugars are high Vital Signs Period Temp Pulse Resp BP Sys/Garces Pulse Ox Last 24 Hr 97.7 F-98.0 F 62-70 18-20 130-142/56-63 97 cor-rrr lungs clear abd soft,nt ext no edema CBC, BMP 08/21/19 08:00 08/22/19 07:35 Microbiology 08/19/19 15:16 Sputum - Expectorated AFB Smear Concentration - Preliminary 08/16/19 10:40 Sputum - Aerosol Induced AFB Smear Concentration - Final 08/16/19 10:40 Sputum - Aerosol Induced Mycobacterial Culture - Preliminary 08/12/19 14:30 Blood - Peripheral Venous Blood Culture - Final NO GROWTH AFTER 5 DAYS INCUBATION 08/12/19 14:30 Blood - Peripheral Venous Blood Culture - Final NO GROWTH AFTER 5 DAYS INCUBATION 08/14/19 14:30 Sputum - Expectorated AFB Smear Concentration - Preliminary 08/14/19 14:30 Sputum - Expectorated Mycobacterial Culture - Preliminary 08/12/19 12:10 Urine - Urine Clean Catch Urine Culture - Final NO GROWTH OBTAINED 08/11/19 11:20 Sputum - Expectorated Gram Stain - Final 08/11/19 11:20 Sputum - Expectorated Sputum Culture - Final NORMAL RESPIRATORY FREDDY 08/11/19 11:20 Sputum - Expectorated AFB Smear Concentration - Final 08/11/19 11:20 Sputum - Expectorated Mycobacterial Culture - Preliminary 08/10/19 11:20 Bronchial Washings - Right Lower Lobe AFB Smear Concentration - Final 08/10/19 11:20 Bronchial Washings - Right Lower Lobe Mycobacterial Culture - Preliminary 08/10/19 13:05 Bronchial Washings - Right Lower Lobe Gram Stain - Final 08/10/19 13:05 Bronchial Washings - Right Lower Lobe Bronchoalveolar Lavage Culture - Final 08/10/19 11:20 Bronchial Washings - Right Lower Lobe BRISSA Preparation - Preliminary 08/10/19 11:20 Bronchial Washings - Right Lower Lobe Fungal Culture - Preliminary 08/05/19 10:55 Blood - Peripheral Venous Blood Culture - Final NO GROWTH AFTER 5 DAYS INCUBATION 08/05/19 10:55 Blood - Peripheral Venous Blood Culture - Final NO GROWTH AFTER 5 DAYS INCUBATION a/p fevers-resolved MTB on RIPE/vit B6 d/w ABDIRASHID- earliest home is 08/26 afb isolation to continue follow lfts on RIPE-starting to rise, bili and alk phos normal- daily LFTS- d/w nurse-to call me daily before giving RIPE ruq US normal d/w son yesterday will order glucerna Problem List - Problems (1) Abnormal CT scan, chest Code(s): R93.89 - ABNORMAL FINDINGS ON DX IMAGING OF OTH BODY STRUCTURES (2) Cavitary lesion of lung Code(s): J98.4 - OTHER DISORDERS OF LUNG (3) Diabetes mellitus Code(s): E11.9 - TYPE 2 DIABETES MELLITUS WITHOUT COMPLICATIONS Qualifiers: Diabetes mellitus type: type 2 Diabetes mellitus 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
--- NOTE | 2019-08-22 16:39 | PN ---
Progress Note (short form) - Note Progress Note: Patient has no new complaint today he is eating his medication he went for ultrasound today of the abdomen and pelvis there is no abnormality noted patient is seen by SANDRA Barron and no new change in the treatment. Vital Signs CBC, BMP 08/21/19 08:00 08/22/19 07:35 Vital Signs Period Temp Pulse Resp BP Sys/Garces Pulse Ox Last 24 Hr 97.7 F-98.0 F 62-70 18-20 130-142/56-63 97 Physical exam he has no distress. Vital signs stable Eyes exam head nose throat normal Neck supple Lungs clear bilateral Heart S1-S2 regular Neurologically he is alert awake oriented Pulmonary tuberculosis NIDDM hypothyrodism HTN isolation om TB meds consults appreciated tolerating treatment well Current Medications Ethambutol HCl (Myambutol -) 1,200 mg PO DAILY [facility] Last Admin: 08/21/19 10:39 Dose: 1,200 mg Isoniazid (Inh -) 300 mg PO DAILY [facility] Last Admin: 08/21/19 10:39 Dose: 300 mg Levothyroxine Sodium (Synthroid -) 50 mcg PO AM [facility] Last Admin: 08/21/19 06:26 Dose: 50 mcg Losartan Potassium (Cozaar -) 100 mg PO DAILY [facility] Last Admin: 08/21/19 10:37 Dose: 100 mg Metformin HCl (Glucophage Xr -) 1,000 mg PO BIDAC [facility] Last Admin: 08/21/19 06:26 Dose: 1,000 mg Metoprolol Succinate (Toprol Xl -) 50 mg PO DAILY [facility] Last Admin: 08/21/19 10:37 Dose: 50 mg Multivitamins/Minerals/Vitamin C (Tab-A-Vit -) 1 tab PO DAILY [facility] Last Admin: 08/21/19 10:37 Dose: 1 tab Ondansetron HCl (Zofran Injection) 8 mg IVPB Q8H PRN PRN Reason: NAUSEA Pyrazinamide (Pyrazinamide -) 1,500 mg PO DAILY [facility] Last Admin: 08/21/19 10:38 Dose: 1,500 mg Pyridoxine HCl (Vitamin B6 -) 50 mg PO DAILY [facility] Last Admin: 08/21/19 10:38 Dose: 50 mg Rifampin (Rifadin -) 600 mg PO DAILY [facility] Last Admin: 08/21/19 10:38 Dose: 600 mg Sodium Chloride (Normal Saline For Inhalation -) 3 ml IH Q6H PRN PRN Reason: COUGH Last Admin: 08/16/19 10:19 Dose: 3 ml repeat sputum: needs two more negative to start dc planning home with dot
[2019-08-23] MEDS ORDERED: PT OWN MED DRAWER 7, Y5N ONE ×5 (05:32→15:42)
[2019-08-23] MEDS: LEVOTHYROXINE NA 50 MCG TABLET (FP) PO SCH (06:14)
[2019-08-23 08:05] LABS: ALBUMIN 2.9 g/dl (3.4-5.0); BILIRUBIN,TOTAL 0.4 mg/dL (0.2-1); BLOOD UREA NITROGEN 37.7 mg/dL (7-18); CREATININE 1.4 mg/dL (0.55-1.3); POTASSIUM 5.6 mmol/L (3.5-5.1); TOT PROT 7.3 g/dl (6.4-8.2)
[2019-08-23] MEDS: MULTIVITAMINS (DAILY MVI) TABLET (FP) PO SCH (09:54)
[2019-08-23] MEDS: LOSARTAN POTASSIUM 50 MG TABLET (FP) PO SCH (09:54)
--- NOTE | 2019-08-23 11:34 | PN ---
Progress Note (short form) - Note Progress Note: day #12 RIPE eating poorly Vital Signs Period Temp Pulse Resp BP Sys/Garces Pulse Ox Last 24 Hr 96.3 F-97.7 F 65-97 18-20 120-149/56-60 cor-rrr lungs clear abd soft,nt ext no edema CBC, BMP 08/21/19 08:00 08/23/19 07:18 Microbiology 08/19/19 15:16 Sputum - Expectorated AFB Smear Concentration - Preliminary 08/19/19 15:16 Sputum - Expectorated Mycobacterial Culture - Preliminary 08/16/19 10:40 Sputum - Aerosol Induced AFB Smear Concentration - Final 08/16/19 10:40 Sputum - Aerosol Induced Mycobacterial Culture - Preliminary 08/12/19 14:30 Blood - Peripheral Venous Blood Culture - Final NO GROWTH AFTER 5 DAYS INCUBATION 08/12/19 14:30 Blood - Peripheral Venous Blood Culture - Final NO GROWTH AFTER 5 DAYS INCUBATION 08/14/19 14:30 Sputum - Expectorated AFB Smear Concentration - Preliminary 08/14/19 14:30 Sputum - Expectorated Mycobacterial Culture - Preliminary 08/12/19 12:10 Urine - Urine Clean Catch Urine Culture - Final NO GROWTH OBTAINED 08/11/19 11:20 Sputum - Expectorated Gram Stain - Final 08/11/19 11:20 Sputum - Expectorated Sputum Culture - Final NORMAL RESPIRATORY FREDDY 08/11/19 11:20 Sputum - Expectorated AFB Smear Concentration - Final 08/11/19 11:20 Sputum - Expectorated Mycobacterial Culture - Preliminary 08/10/19 11:20 Bronchial Washings - Right Lower Lobe AFB Smear Concentration - Final 08/10/19 11:20 Bronchial Washings - Right Lower Lobe Mycobacterial Culture - Preliminary 08/10/19 13:05 Bronchial Washings - Right Lower Lobe Gram Stain - Final 08/10/19 13:05 Bronchial Washings - Right Lower Lobe Bronchoalveolar Lavage Culture - Final 08/10/19 11:20 Bronchial Washings - Right Lower Lobe BRISSA Preparation - Preliminary 08/10/19 11:20 Bronchial Washings - Right Lower Lobe Fungal Culture - Preliminary 08/05/19 10:55 Blood - Peripheral Venous Blood Culture - Final NO GROWTH AFTER 5 DAYS INCUBATION 08/05/19 10:55 Blood - Peripheral Venous Blood Culture - Final NO GROWTH AFTER 5 DAYS INCUBATION Laboratory Tests 08/21/19 08/22/1908/23/19 08:00 07:35 07:18 Total Bilirubin 0.2 0.3 0.4 AST 145 H 116 H 97 H ALT 98 H 123 H 119 H Alkaline Phosphatase 94 112 108 a/p fevers-resolved MTB on RIPE/vit B6 d/w ABDIRASHID- earliest home is 08/26 afb isolation to continue follow lfts on RIPE-looks like they have peaked, continue daily LFTS daily LFTS- d/w nurse-to call me daily before giving RIPE ruq US normal d/w son yesterday will order glucerna d/w hospitalist today Problem List - Problems (1) Abnormal CT scan, chest Code(s): R93.89 - ABNORMAL FINDINGS ON DX IMAGING OF OTH BODY STRUCTURES (2) Cavitary lesion of lung Code(s): J98.4 - OTHER DISORDERS OF LUNG (3) Diabetes mellitus Code(s): E11.9 - TYPE 2 DIABETES MELLITUS WITHOUT COMPLICATIONS Qualifiers: Diabetes mellitus type: type 2 Diabetes mellitus correction insulin use: without correction use Diabetes mellitus complication status: without complication Qualified Code(s): E11.9 - Type 2 diabetes mellitus without complications
[2019-08-23] MEDS: RIFAMPIN 300 MG CAPSULE PO SCH (12:02)
[2019-08-23] MEDS: PYRIDOXINE HCL (B-6) 50 MG TABLET (FP) PO SCH (12:02)
[2019-08-23] MEDS: ETHAMBUTOL HCL 400 MG TABLET PO SCH (12:02)
[2019-08-23] MEDS: ISONIAZID 300 MG TABLET (FP) PO SCH (12:03)
--- NOTE | 2019-08-23 13:09 | PN ---
Progress Note (short form) - Note Progress Note: PULMONARY VSS/AFEBRILE LFT'S IMPROVED Constitutional: Yes: Calm, Thin Eyes: Yes: WNL HENT: Yes: WNL Neck: Yes: WNL Cardiovascular: Yes: Regular Rate and Rhythm, S1, S2 Respiratory: Yes: CTA Bilaterally Gastrointestinal: Yes: Normal Bowel Sounds, Soft Extremities: Yes: WNL Edema: No Labs: NOTED A/P Pulmonary Tuberculosis Lactic Acidosis HTN DM Hypothyroidism Anemia Hypercalcemia - antibiotics per ID - monitor LFTs,calcium level - DVT prophylaxis Austen CEE MD
[2019-08-23] MEDS: PYRAZINAMIDE 500 MG TABLET PO SCH (15:52)
--- NOTE | 2019-08-23 19:21 | PN ---
Progress Note (short form) - Note Progress Note: Patient has no new complaint today he is eating his medication he went for ultrasound today of the abdomen and pelvis there is no abnormality noted patient is seen by SANDRA Barron and no new change in the treatment. Vital Signs CBC, BMP 08/21/19 08:00 08/22/19 07:35 Vital Signs Period Temp Pulse Resp BP Sys/Garces Pulse Ox Last 24 Hr 97.7 F-98.0 F 62-70 18-20 130-142/56-63 97 Physical exam he has no distress. Vital signs stable Eyes exam head nose throat normal Neck supple Lungs clear bilateral Heart S1-S2 regular Neurologically he is alert awake oriented Pulmonary tuberculosis NIDDM hypothyrodism HTN isolation om TB meds consults appreciated tolerating treatment well d/w son and patient about eating more Current Medications Ethambutol HCl (Myambutol -) 1,200 mg PO DAILY [facility] Last Admin: 08/21/19 10:39 Dose: 1,200 mg Isoniazid (Inh -) 300 mg PO DAILY [facility] Last Admin: 08/21/19 10:39 Dose: 300 mg Levothyroxine Sodium (Synthroid -) 50 mcg PO AM [facility] Last Admin: 08/21/19 06:26 Dose: 50 mcg Losartan Potassium (Cozaar -) 100 mg PO DAILY [facility] Last Admin: 08/21/19 10:37 Dose: 100 mg Metformin HCl (Glucophage Xr -) 1,000 mg PO BIDAC [facility] Last Admin: 08/21/19 06:26 Dose: 1,000 mg Metoprolol Succinate (Toprol Xl -) 50 mg PO DAILY [facility] Last Admin: 08/21/19 10:37 Dose: 50 mg Multivitamins/Minerals/Vitamin C (Tab-A-Vit -) 1 tab PO DAILY [facility] Last Admin: 08/21/19 10:37 Dose: 1 tab Ondansetron HCl (Zofran Injection) 8 mg IVPB Q8H PRN PRN Reason: NAUSEA Pyrazinamide (Pyrazinamide -) 1,500 mg PO DAILY [facility] Last Admin: 08/21/19 10:38 Dose: 1,500 mg Pyridoxine HCl (Vitamin B6 -) 50 mg PO DAILY [facility] Last Admin: 08/21/19 10:38 Dose: 50 mg Rifampin (Rifadin -) 600 mg PO DAILY [facility] Last Admin: 08/21/19 10:38 Dose: 600 mg Sodium Chloride (Normal Saline For Inhalation -) 3 ml IH Q6H PRN PRN Reason: COUGH Last Admin: 08/16/19 10:19 Dose: 3 ml repeat sputum: needs two more negative to start dc planning home with dot
[2019-08-24] MEDS ORDERED: PT OWN MED DRAWER 7, Y5N ONE (06:42)
[2019-08-24] MEDS: LEVOTHYROXINE NA 50 MCG TABLET (FP) PO SCH (07:11)
[2019-08-24 07:28] LABS: BASO % 0.9 % (0-2.0); EOS % 0.8 % (0-4.5); HEMATOCRIT 43.3 % (35.4-49); LYMPH % 15.6 % (8-40); MCH 24.7 pg (25.7-33.7); MCHC 32.4 g/dl (32.0-35.9); MEAN CELL VOLUME 76.2 fl (80-96); MONO % 7.3 % (3.8-10.2); NEUT % 75.4 % (42.8-82.8); PLATELET COUNT 415 K/MM3 (134-434); RBC 5.68 M/mm3 (4.00-5.60); RDW 19.5 % (11.9-15.9); WHITE BLOOD COUNT 13.8 K/mm3 (4.0-10.0)
[2019-08-24 08:02] LABS: BILIRUBIN,TOTAL 0.6 mg/dL (0.2-1); BLOOD UREA NITROGEN 33.3 mg/dL (7-18); CALCIUM 9.6 mg/dL (8.5-10.1); CREATININE 1.3 mg/dL (0.55-1.3); POTASSIUM 4.8 mmol/L (3.5-5.1); TOT PROT 7.4 g/dl (6.4-8.2)
--- NOTE | 2019-08-24 10:23 | PN ---
Progress Note (short form) - Note Progress Note: Patient has no new complaint today he is eating his medication he went for ultrasound today of the abdomen and pelvis there is no abnormality noted patient is seen by SANDRA Barron and no new change in the treatment. Vital Signs CBC, BMP 08/21/19 08:00 08/22/19 07:35 Vital Signs Period Temp Pulse Resp BP Sys/Garces Pulse Ox Last 24 Hr 97.7 F-98.0 F 62-70 18-20 130-142/56-63 97 Physical exam he has no distress. Vital signs stable Eyes exam head nose throat normal Neck supple Lungs clear bilateral Heart S1-S2 regular Neurologically he is alert awake oriented Pulmonary tuberculosis NIDDM hypothyrodism HTN isolation om TB meds consults appreciated tolerating treatment well d/w son and patient about eating more Current Medications Ethambutol HCl (Myambutol -) 1,200 mg PO DAILY [facility] Last Admin: 08/21/19 10:39 Dose: 1,200 mg Isoniazid (Inh -) 300 mg PO DAILY [facility] Last Admin: 08/21/19 10:39 Dose: 300 mg Levothyroxine Sodium (Synthroid -) 50 mcg PO AM [facility] Last Admin: 08/21/19 06:26 Dose: 50 mcg Losartan Potassium (Cozaar -) 100 mg PO DAILY [facility] Last Admin: 08/21/19 10:37 Dose: 100 mg Metformin HCl (Glucophage Xr -) 1,000 mg PO BIDAC [facility] Last Admin: 08/21/19 06:26 Dose: 1,000 mg Metoprolol Succinate (Toprol Xl -) 50 mg PO DAILY [facility] Last Admin: 08/21/19 10:37 Dose: 50 mg Multivitamins/Minerals/Vitamin C (Tab-A-Vit -) 1 tab PO DAILY [facility] Last Admin: 08/21/19 10:37 Dose: 1 tab Ondansetron HCl (Zofran Injection) 8 mg IVPB Q8H PRN PRN Reason: NAUSEA Pyrazinamide (Pyrazinamide -) 1,500 mg PO DAILY [facility] Last Admin: 08/21/19 10:38 Dose: 1,500 mg Pyridoxine HCl (Vitamin B6 -) 50 mg PO DAILY [facility] Last Admin: 08/21/19 10:38 Dose: 50 mg Rifampin (Rifadin -) 600 mg PO DAILY [facility] Last Admin: 08/21/19 10:38 Dose: 600 mg Sodium Chloride (Normal Saline For Inhalation -) 3 ml IH Q6H PRN PRN Reason: COUGH Last Admin: 08/16/19 10:19 Dose: 3 ml repeat sputum: needs two more negative to start dc planning home with dot
--- NOTE | 2019-08-24 10:36 | PN ---
Progress Note (short form) - Note Progress Note: PULMONARY Feels better. No fevers recorded. Last AFB smear positive. Vital Signs Period Temp Pulse Resp BP Sys/Garces Pulse Ox Last 24 Hr 97.4 F-98 F 60-89 14-20 110-130/48-75 Gen: NAD at rest Heart: RRR Lung: decreased breath sounds at the bases Abd: soft, nontender Ext: no edema CBC, BMP 08/24/19 07:18 08/24/19 07:18 Active Medications Ethambutol HCl (Myambutol -) 1,200 mg PO DAILY [facility] Last Admin: 08/23/19 12:02 Dose: 1,200 mg Isoniazid (Inh -) 300 mg PO DAILY [facility] Last Admin: 08/23/19 12:03 Dose: 300 mg Levothyroxine Sodium (Synthroid -) 50 mcg PO AM [facility] Last Admin: 08/24/19 07:11 Dose: 50 mcg Losartan Potassium (Cozaar -) 100 mg PO DAILY [facility] Last Admin: 08/23/19 09:54 Dose: 100 mg Metformin HCl (Glucophage Xr -) 1,000 mg PO BIDAC [facility] Last Admin: 08/24/19 07:11 Dose: 1,000 mg Metoprolol Succinate (Toprol Xl -) 50 mg PO DAILY [facility] Last Admin: 08/23/19 09:53 Dose: 50 mg Multivitamins/Minerals/Vitamin C (Tab-A-Vit -) 1 tab PO DAILY [facility] Last Admin: 08/23/19 09:54 Dose: 1 tab Ondansetron HCl (Zofran Injection) 8 mg IVPB Q8H PRN PRN Reason: NAUSEA Pyrazinamide (Pyrazinamide -) 1,500 mg PO DAILY [facility] Last Admin: 08/23/19 15:52 Dose: 1,500 mg Pyridoxine HCl (Vitamin B6 -) 50 mg PO DAILY [facility] Last Admin: 08/23/19 12:02 Dose: 50 mg Rifampin (Rifadin -) 600 mg PO DAILY [facility] Last Admin: 08/23/19 12:02 Dose: 600 mg Sodium Chloride (Normal Saline For Inhalation -) 3 ml IH Q6H PRN PRN Reason: COUGH Last Admin: 08/16/19 10:19 Dose: 3 ml A/P Pulmonary Tuberculosis Lactic Acidosis HTN DM Hypothyroidism Anemia - antibiotics per ID - monitor sputum AFB until negative x 3 - monitor LFTs - DVT prophylaxis
--- NOTE | 2019-08-24 12:07 | PN ---
Progress Note (short form) - Note Progress Note: day #13 RIPE no abdominal pain eating poorly Vital Signs Period Temp Pulse Resp BP Sys/Garces Pulse Ox Last 24 Hr 97.4 F-98 F 60-89 14-20 110-130/48-75 cor-rrr lungs clear abd soft,nt ext no edema CBC, BMP 08/24/19 07:18 08/24/19 07:18 Microbiology 08/22/19 11:30 Sputum - Expectorated AFB Smear Concentration - Preliminary 08/22/19 11:30 Sputum - Expectorated Mycobacterial Culture - Preliminary 08/19/19 15:16 Sputum - Expectorated AFB Smear Concentration - Preliminary 08/19/19 15:16 Sputum - Expectorated Mycobacterial Culture - Preliminary 08/16/19 10:40 Sputum - Aerosol Induced AFB Smear Concentration - Final 08/16/19 10:40 Sputum - Aerosol Induced Mycobacterial Culture - Preliminary 08/12/19 14:30 Blood - Peripheral Venous Blood Culture - Final NO GROWTH AFTER 5 DAYS INCUBATION 08/12/19 14:30 Blood - Peripheral Venous Blood Culture - Final NO GROWTH AFTER 5 DAYS INCUBATION 08/14/19 14:30 Sputum - Expectorated AFB Smear Concentration - Preliminary 08/14/19 14:30 Sputum - Expectorated Mycobacterial Culture - Preliminary 08/12/19 12:10 Urine - Urine Clean Catch Urine Culture - Final NO GROWTH OBTAINED 08/11/19 11:20 Sputum - Expectorated Gram Stain - Final 08/11/19 11:20 Sputum - Expectorated Sputum Culture - Final NORMAL RESPIRATORY FREDDY 08/11/19 11:20 Sputum - Expectorated AFB Smear Concentration - Final 08/11/19 11:20 Sputum - Expectorated Mycobacterial Culture - Preliminary 08/10/19 11:20 Bronchial Washings - Right Lower Lobe AFB Smear Concentration - Final 08/10/19 11:20 Bronchial Washings - Right Lower Lobe Mycobacterial Culture - Preliminary 08/10/19 13:05 Bronchial Washings - Right Lower Lobe Gram Stain - Final 08/10/19 13:05 Bronchial Washings - Right Lower Lobe Bronchoalveolar Lavage Culture - Final 08/10/19 11:20 Bronchial Washings - Right Lower Lobe BRISSA Preparation - Preliminary 08/10/19 11:20 Bronchial Washings - Right Lower Lobe Fungal Culture - Preliminary 08/05/19 10:55 Blood - Peripheral Venous Blood Culture - Final NO GROWTH AFTER 5 DAYS INCUBATION 08/05/19 10:55 Blood - Peripheral Venous Blood Culture - Final NO GROWTH AFTER 5 DAYS INCUBATION a/p fevers-resolved MTB on RIPE/vit B6 d/w ABDIRASHID- earliest home is 08/26 afb isolation to continue follow lfts on RIPE-bump again today- will continue to monitor daily daily LFTS- d/w nurse-to call me daily before giving RIPE ruq US normal awiting afb sputum, one is negative, need 2 more d/w ABDIRASHID TB MD- will continue meds with daily lft monitoring check hepatitis serology, check GGT Problem List - Problems (1) Abnormal CT scan, chest Code(s): R93.89 - ABNORMAL FINDINGS ON DX IMAGING OF OTH BODY STRUCTURES (2) Cavitary lesion of lung Code(s): J98.4 - OTHER DISORDERS OF LUNG (3) Diabetes mellitus Code(s): E11.9 - TYPE 2 DIABETES MELLITUS WITHOUT COMPLICATIONS Qualifiers: Diabetes mellitus type: type 2 Diabetes mellitus care home insulin use: without long term care pharmacist use Diabetes mellitus complication status: without complication Qualified Code(s): E11.9 - Type 2 diabetes mellitus without complications
[2019-08-24] MEDS: MULTIVITAMINS (DAILY MVI) TABLET (FP) PO SCH (12:50)
[2019-08-24] MEDS: LOSARTAN POTASSIUM 50 MG TABLET (FP) PO SCH (12:50)
[2019-08-24] MEDS: RIFAMPIN 300 MG CAPSULE PO SCH (12:51)
[2019-08-24] MEDS: PYRIDOXINE HCL (B-6) 50 MG TABLET (FP) PO SCH (12:52)
[2019-08-24] MEDS: PYRAZINAMIDE 500 MG TABLET PO SCH (12:52)
[2019-08-24] MEDS: ETHAMBUTOL HCL 400 MG TABLET PO SCH (12:53)
[2019-08-24] MEDS: ISONIAZID 300 MG TABLET (FP) PO SCH (14:57)
[2019-08-25] MEDS ORDERED: PT OWN MED DRAWER 7, Y5N ONE ×3 (06:16→18:38)
[2019-08-25] MEDS: LEVOTHYROXINE NA 50 MCG TABLET (FP) PO SCH (07:16)
[2019-08-25 08:52] LABS: ALBUMIN 2.8 g/dl (3.4-5.0); BILIRUBIN,TOTAL 0.6 mg/dL (0.2-1); CALCIUM 9.6 mg/dL (8.5-10.1); CREATININE 1.3 mg/dL (0.55-1.3); POTASSIUM 5.4 mmol/L (3.5-5.1); TOT PROT 6.8 g/dl (6.4-8.2)
[2019-08-25] MEDS: LOSARTAN POTASSIUM 50 MG TABLET (FP) PO SCH (10:41)
[2019-08-25] MEDS: PYRIDOXINE HCL (B-6) 50 MG TABLET (FP) PO SCH (10:42)
[2019-08-25] MEDS: RIFAMPIN 300 MG CAPSULE PO SCH (10:42)
[2019-08-25] MEDS: ISONIAZID 300 MG TABLET (FP) PO SCH (10:42)
--- NOTE | 2019-08-25 10:42 | PN ---
Progress Note (short form) - Note Progress Note: PULMONARY Feels better. No fevers recorded. Vital Signs Period Temp Pulse Resp BP Sys/Garces Pulse Ox Last 24 Hr 97.7 F-98.6 F 73-85 20-20 122-152/54-64 98 Gen: NAD at rest Heart: RRR Lung: decreased breath sounds at the bases Abd: soft, nontender Ext: no edema CBC, BMP 08/24/19 07:18 08/25/19 07:20 Active Medications Ethambutol HCl (Myambutol -) 1,200 mg PO DAILY [facility] Last Admin: 08/24/19 12:53 Dose: 1,200 mg Isoniazid (Inh -) 300 mg PO DAILY [facility] Last Admin: 08/24/19 14:57 Dose: 300 mg Levothyroxine Sodium (Synthroid -) 50 mcg PO AM [facility] Last Admin: 08/25/19 07:16 Dose: 50 mcg Losartan Potassium (Cozaar -) 100 mg PO DAILY [facility] Last Admin: 08/24/19 12:50 Dose: 100 mg Metformin HCl (Glucophage Xr -) 1,000 mg PO BIDAC [facility] Last Admin: 08/25/19 07:16 Dose: 1,000 mg Metoprolol Succinate (Toprol Xl -) 50 mg PO DAILY [facility] Last Admin: 08/24/19 12:50 Dose: 50 mg Multivitamins/Minerals/Vitamin C (Tab-A-Vit -) 1 tab PO DAILY [facility] Last Admin: 08/24/19 12:50 Dose: 1 tab Pyrazinamide (Pyrazinamide -) 1,500 mg PO DAILY [facility] Last Admin: 08/24/19 12:52 Dose: 1,500 mg Pyridoxine HCl (Vitamin B6 -) 50 mg PO DAILY [facility] Last Admin: 08/24/19 12:52 Dose: 50 mg Rifampin (Rifadin -) 600 mg PO DAILY [facility] Last Admin: 08/24/19 12:51 Dose: 600 mg Sodium Chloride (Normal Saline For Inhalation -) 3 ml IH Q6H PRN PRN Reason: COUGH Last Admin: 08/16/19 10:19 Dose: 3 ml A/P Pulmonary Tuberculosis Lactic Acidosis resolved Elevated LFTs likely from RIPE HTN DM Hypothyroidism Anemia - antibiotics per ID - monitor sputum AFB until negative x 3 - monitor LFTs - DVT prophylaxis
[2019-08-25] MEDS: PYRAZINAMIDE 500 MG TABLET PO SCH (10:43)
[2019-08-25] MEDS: MULTIVITAMINS (DAILY MVI) TABLET (FP) PO SCH (10:43)
[2019-08-25] MEDS: ETHAMBUTOL HCL 400 MG TABLET PO SCH (10:43)
--- NOTE | 2019-08-25 18:30 | PN ---
Progress Note (short form) - Note Progress Note: Active Medications Ethambutol HCl (Myambutol -) 1,[address] [facility] Last Admin: 08/25/19 10:43 Dose: 1,200 mg Isoniazid (Inh -) [address] [facility] Last Admin: 08/25/19 10:42 Dose: 300 mg Levothyroxine Sodium (Synthroid -) [address] [facility] Last Admin: 08/25/19 07:16 Dose: 50 mcg Losartan Potassium (Cozaar -) [address] [facility] Last Admin: 08/25/19 10:41 Dose: 100 mg Metformin HCl (Glucophage Xr -) 1,[address] [facility] Last Admin: 08/25/19 17:59 Dose: 1,000 mg Metoprolol Succinate (Toprol Xl -) [address] [facility] Last Admin: 08/25/19 10:44 Dose: 50 mg Multivitamins/Minerals/Vitamin C (Tab-A-Vit -) [address] [facility] Last Admin: 08/25/19 10:43 Dose: 1 tab Pyrazinamide (Pyrazinamide -) 1,[address] [facility] Last Admin: 08/25/19 10:43 Dose: 1,500 mg Pyridoxine HCl (Vitamin B6 -) [address] [facility] Last Admin: 08/25/19 10:42 Dose: 50 mg Rifampin (Rifadin -) [address] [facility] Last Admin: 08/25/19 10:42 Dose: 600 mg Sodium Chloride (Normal Saline For Inhalation -) 3 ml IH Q6H PRN PRN Reason: COUGH Last Admin: 08/16/19 10:19 Dose: 3 ml Abnormal Lab Results 08/25/19 07:20 Potassium 5.4 H Carbon Dioxide 14 L BUN 26.0 H Random Glucose 369 H AST 140 H ALT 158 H Albumin 2.8 L Vital Signs Period Temp Pulse Resp BP Sys/Garces Pulse Ox Last 24 Hr 97.5 F-98.6 F 85-105 20-20 144-154/63-72 97-98 s1s2 rrr lungs basal rales abs soft no edema denies complaints, poor appetite Pulmonary tuberculosis NIDDM hypothyrodism HTN isolation on TB meds consults appreciated tolerating treatment well repeat sputum:11.24 afb negative, 11.27 afb positive needs negative sputums ilan follows daily lft and cbc has been ordered, thank you. Problem List - Problems (1) Diabetes mellitus Code(s): E11.9 - TYPE 2 DIABETES MELLITUS WITHOUT COMPLICATIONS Qualifiers: Diabetes mellitus type: type 2 Diabetes mellitus terminal manager insulin use: without half-way use Diabetes mellitus complication status: without complication Qualified Code(s): E11.9 - Type 2 diabetes mellitus without complications (2) HTN (hypertension) Code(s): I10 - ESSENTIAL (PRIMARY) HYPERTENSION Qualifiers: Hypertension type: essential hypertension Qualified Code(s): I10 - Essential (primary) hypertension (3) Hyperlipidemia Code(s): E78.5 - HYPERLIPIDEMIA, UNSPECIFIED Qualifiers: Hyperlipidemia type: unspecified Qualified Code(s): E78.5 - Hyperlipidemia , unspecified (4) Hypothyroidism Code(s): E03.9 - HYPOTHYROIDISM, UNSPECIFIED Qualifiers: Hypothyroidism type: acquired Qualified Code(s): E03.9 - Hypothyroidism, unspecified (5) Cavitary lesion of lung Code(s): J98.4 - OTHER DISORDERS OF LUNG
[2019-08-26] MEDS ORDERED: PT OWN MED DRAWER 7, Y5N ONE (06:13)
[2019-08-26] MEDS: LEVOTHYROXINE NA 50 MCG TABLET (FP) PO SCH (06:34)
[2019-08-26 08:47] LABS: BILIRUBIN,TOTAL 0.4 mg/dL (0.2-1); BLOOD UREA NITROGEN 16.3 mg/dL (7-18); CALCIUM 9.6 mg/dL (8.5-10.1); CREATININE 1.3 mg/dL (0.55-1.3); POTASSIUM 4.9 mmol/L (3.5-5.1); TOT PROT 6.9 g/dl (6.4-8.2)
[2019-08-26] MEDS: LOSARTAN POTASSIUM 50 MG TABLET (FP) PO SCH (11:56)
[2019-08-26] MEDS: MULTIVITAMINS (DAILY MVI) TABLET (FP) PO SCH (11:56)
[2019-08-26] MEDS: ISONIAZID 300 MG TABLET (FP) PO SCH (11:57)
[2019-08-26] MEDS: RIFAMPIN 300 MG CAPSULE PO SCH (11:58)
[2019-08-26] MEDS: PYRAZINAMIDE 500 MG TABLET PO SCH (11:58)
[2019-08-26] MEDS: PYRIDOXINE HCL (B-6) 50 MG TABLET (FP) PO SCH (11:58)
[2019-08-26] MEDS: ETHAMBUTOL HCL 400 MG TABLET PO SCH (11:59)
--- NOTE | 2019-08-26 12:34 | PN ---
Progress Note (short form) - Note Progress Note: day #14 RIPE no complaints Vital Signs Period Temp Pulse Resp BP Sys/Garces Pulse Ox Last 24 Hr 97.5 F-98.9 F 89-105 20-20 137-154/63-72 cor-rrr lungs clear abd soft, ny ext no edema CBC, BMP 08/24/19 07:18 08/26/19 07:47 a/p fevers-resolved MTB on RIPE/vit B6 d/w ABDIRASHID- earliest home is 08/26 afb isolation to continue follow lfts on RIPE-bump again today- will continue to monitor daily daily LFTS- d/w nurse-to call me daily before giving RIPE ruq US normal awiting afb sputum, one is negative, need 2 more Laboratory Tests 08/21/19 08/22/19 08/23/19 08:00 07:35 07:18 Total Bilirubin 0.2 0.3 0.4 AST 145 H 116 H 97 H ALT 98 H 123 H 119 H Alkaline Phosphatase 94 112 108 08/25/19 08/26/19 07:20 07:47 Total Bilirubin AST 140 H 78 H ALT 158 H 142 H Alkaline Phosphatase 107 110 GGT normal hep serology negative spoke with Dr [facility] they will let us know when he can go home would like to repeat lfts again in am to make sure downward trend continues/ LFTs are stable d/w PMD-outpt meds and prescriptions reviewed d/w micro d/w infection control nurse over 35 minutes spent coordinating the care of this patient Problem List - Problems (1) Abnormal CT scan, chest Code(s): R93.89 - ABNORMAL FINDINGS ON DX IMAGING OF OTH BODY STRUCTURES (2) Cavitary lesion of lung Code(s): J98.4 - OTHER DISORDERS OF LUNG (3) Diabetes mellitus Code(s): E11.9 - TYPE 2 DIABETES MELLITUS WITHOUT COMPLICATIONS Qualifiers: Diabetes mellitus type: type 2 Diabetes mellitus ferry terminal supervisor insulin use: without fci use Diabetes mellitus complication status: without complication Qualified Code(s): E11.9 - Type 2 diabetes mellitus without complications
--- NOTE | 2019-08-26 12:41 | PN ---
Progress Note (short form) - Note Progress Note: CBCD WBC 13.8 K/mm3 (4.0-10.0) H 08/24/19 07:18 RBC 5.68 M/mm3 (4.00-5.60) H 08/24/19 07:18 Hgb 14.0 GM/dL (11.7-16.9) 08/24/19 07:18 Hct 43.3 % (35.4-49) 08/24/19 07:18 MCV 76.2 fl (80-96) L 08/24/19 07:18 MCHC 32.4 g/dl (32.0-35.9) 08/24/19 07:18 RDW 19.5 % (11.9-15.9) H 08/24/19 07:18 Plt Count 415 K/MM3 (134-434) 08/24/19 07:18 MPV 8.0 fl (7.5-11.1) 08/24/19 07:18 CMP Sodium 133 mmol/L (136-145) L 08/26/19 07:47 Potassium 4.9 mmol/L (3.5-5.1) 08/26/19 07:47 Chloride 101 mmol/L (98-107) 08/26/19 07:47 Carbon Dioxide 18 mmol/L (21-32) L 08/26/19 07:47 Anion Gap 14 MMOL/L (8-16) 08/26/19 07:47 BUN 16.3 mg/dL (7-18) 08/26/19 07:47 Creatinine 1.3 mg/dL (0.55-1.3) 08/26/19 07:47 Calcium 9.6 mg/dL (8.5-10.1) 08/26/19 07:47 Total Bilirubin 0.4 mg/dL (0.2-1) 08/26/19 07:47 AST 78 U/L (15-37) H 08/26/19 07:47 ALT 142 U/L (13-61) H 08/26/19 07:47 Alkaline Phosphatase 110 U/L (45-117) 08/26/19 07:47 Total Protein 6.9 g/dl (6.4-8.2) 08/26/19 07:47 Albumin 3.0 g/dl (3.4-5.0) L 08/26/19 07:47 Vital Signs Period Temp Pulse Resp BP Sys/Garces Pulse Ox Last 24 Hr 97.5 F-98.9 F 89-105 20-20 137-154/63-72 s1s2 rrr lungs basal rales abs soft no edema denies complaints, poor appetite Pulmonary tuberculosis NIDDM hypothyrodism HTN isolation on TB meds consults appreciated LFTs are better repeat sputum:11.24 afb negative, 11.27 afb positive ilan follows, tentative dc within 5 days daily lft and cbc add januvia for improved sugar control Problem List - Problems (1) Diabetes mellitus Code(s): E11.9 - TYPE 2 DIABETES MELLITUS WITHOUT COMPLICATIONS Qualifiers: Qualified Code(s): E11.9 - Type 2 diabetes mellitus without complications (2) HTN (hypertension) Code(s): I10 - ESSENTIAL (PRIMARY) HYPERTENSION Qualifiers: Qualified Code(s): I10 - Essential (primary) hypertension (3) Hyperlipidemia Code(s): E78.5 - HYPERLIPIDEMIA, UNSPECIFIED Qualifiers: Qualified Code(s): E78.5 - Hyperlipidemia, unspecified (4) Hypothyroidism Code(s): E03.9 - HYPOTHYROIDISM, UNSPECIFIED Qualifiers: Qualified Code(s): E03.9 - Hypothyroidism, unspecified (5) Cavitary lesion of lung Code(s): J98.4 - OTHER DISORDERS OF LUNG
--- NOTE | 2019-08-26 14:31 | PN ---
Progress Note (short form) - Note Progress Note: PULMONARY No specific complaints. No fevers recorded. Vital Signs Period Temp Pulse Resp BP Sys/Garces Pulse Ox Last 24 Hr 98.9 F 102-105 20-20 137-154/63-72 Gen: NAD at rest Heart: RRR Lung: decreased breath sounds at the bases Abd: soft, nontender Ext: no edema CBC, BMP 08/24/19 07:18 08/26/19 07:47 Active Medications Ethambutol HCl (Myambutol -) 1,200 mg PO DAILY [facility] Last Admin: 08/26/19 11:59 Dose: 1,200 mg Isoniazid (Inh -) 300 mg PO DAILY [facility] Last Admin: 08/26/19 11:57 Dose: 300 mg Levothyroxine Sodium (Synthroid -) 50 mcg PO AM [facility] Last Admin: 08/26/19 06:34 Dose: 50 mcg Losartan Potassium (Cozaar -) 100 mg PO DAILY [facility] Last Admin: 08/26/19 11:56 Dose: 100 mg Metformin HCl (Glucophage Xr -) 1,000 mg PO BIDAC [facility] Last Admin: 08/26/19 06:34 Dose: 1,000 mg Metoprolol Succinate (Toprol Xl -) 50 mg PO DAILY [facility] Last Admin: 08/26/19 11:56 Dose: 50 mg Multivitamins/Minerals/Vitamin C (Tab-A-Vit -) 1 tab PO DAILY [facility] Last Admin: 08/26/19 11:56 Dose: 1 tab Pyrazinamide (Pyrazinamide -) 1,500 mg PO DAILY [facility] Last Admin: 08/26/19 11:58 Dose: 1,500 mg Pyridoxine HCl (Vitamin B6 -) 50 mg PO DAILY [facility] Last Admin: 08/26/19 11:58 Dose: 50 mg Rifampin (Rifadin -) 600 mg PO DAILY [facility] Last Admin: 08/26/19 11:58 Dose: 600 mg Sitagliptin Phosphate (Januvia -) 50 mg PO DAILY@0700 [facility] Sodium Chloride (Normal Saline For Inhalation -) 3 ml IH Q6H PRN PRN Reason: COUGH Last Admin: 08/16/19 10:19 Dose: 3 ml A/P Pulmonary Tuberculosis Lactic Acidosis resolved Elevated LFTs likely from R[place] HTN DM Hypothyroidism Anemia - antibiotics per ID - monitor sputum AFB until negative x 3 - monitor LFTs - DVT prophylaxis
[2019-08-27] MEDS ORDERED: PT OWN MED DRAWER 7, Y5N ONE ×5 (05:43→16:38)
[2019-08-27] MEDS: LEVOTHYROXINE NA 50 MCG TABLET (FP) PO SCH (06:24)
[2019-08-27] MEDS: sitaGLIPtin PHOSPHATE 50 MG TABLET PO SCH (06:25)
[2019-08-27 08:24] LABS: ALBUMIN 2.8 g/dl (3.4-5.0); BILIRUBIN,TOTAL 0.6 mg/dL (0.2-1); BLOOD UREA NITROGEN 18.3 mg/dL (7-18); CREATININE 1.6 mg/dL (0.55-1.3); POTASSIUM 4.9 mmol/L (3.5-5.1)
--- NOTE | 2019-08-27 09:21 | PN ---
Progress Note (short form) - Note Progress Note: CBC, BMP 08/24/19 07:18 08/27/19 07:05 Vital Signs Period Temp Pulse Resp BP Sys/Garces Pulse Ox Last 24 Hr 97.4 F-98.4 F 73-82 20-20 113-131/53-61 97 s1s2 rrr lungs basal rales abs soft no edema denies complaints, poor appetite Pulmonary tuberculosis NIDDM hypothyrodism HTN isolation on TB meds consults appreciated ilan follows, tentative dc within 5 days daily lft and cbc added januvia for improved sugar control renal fnct increasing, will decrease losartan dose may need free water restriction if sodium drops Problem List - Problems (1) Diabetes mellitus Code(s): E11.9 - TYPE 2 DIABETES MELLITUS WITHOUT COMPLICATIONS Qualifiers: Diabetes mellitus type: type 2 Diabetes mellitus buttermaker continuous churn insulin use: without buttermaker continuous churn use Diabetes mellitus complication status: without complication Qualified Code(s): E11.9 - Type 2 diabetes mellitus without complications (2) HTN (hypertension) Code(s): I10 - ESSENTIAL (PRIMARY) HYPERTENSION Qualifiers: Hypertension type: essential hypertension Qualified Code(s): I10 - Essential (primary) hypertension (3) Hyperlipidemia Code(s): E78.5 - HYPERLIPIDEMIA, UNSPECIFIED Qualifiers: Hyperlipidemia type: unspecified Qualified Code(s): E78.5 - Hyperlipidemia , unspecified (4) Hypothyroidism Code(s): E03.9 - HYPOTHYROIDISM, UNSPECIFIED Qualifiers: Hypothyroidism type: acquired Qualified Code(s): E03.9 - Hypothyroidism, unspecified (5) Cavitary lesion of lung Code(s): J98.4 - OTHER DISORDERS OF LUNG
[2019-08-27] MEDS: MULTIVITAMINS (DAILY MVI) TABLET (FP) PO SCH (10:17)
[2019-08-27] MEDS: ISONIAZID 300 MG TABLET (FP) PO SCH (10:17)
[2019-08-27] MEDS: RIFAMPIN 300 MG CAPSULE PO SCH (10:18)
[2019-08-27] MEDS: ETHAMBUTOL HCL 400 MG TABLET PO SCH (10:19)
[2019-08-27] MEDS: PYRIDOXINE HCL (B-6) 50 MG TABLET (FP) PO SCH (10:19)
[2019-08-27] MEDS: LOSARTAN POTASSIUM 50 MG TABLET (FP) PO SCH (10:20)
--- NOTE | 2019-08-27 10:39 | PN ---
Progress Note (short form) - Note Progress Note: PULMONARY No specific complaints. No fevers recorded. Vital Signs Period Temp Pulse Resp BP Sys/Garces Pulse Ox Last 24 Hr 97.4 F-98.4 F 73-82 20-20 113-131/53-61 Gen: NAD at rest Heart: RRR Lung: decreased breath sounds at the bases Abd: soft, nontender Ext: no edema CBC, BMP 08/24/19 07:18 08/27/19 07:05 Active Medications Ethambutol HCl (Myambutol -) 1,200 mg PO DAILY [facility] Last Admin: 08/27/19 10:19 Dose: 1,200 mg Isoniazid (Inh -) 300 mg PO DAILY [facility] Last Admin: 08/27/19 10:17 Dose: 300 mg Levothyroxine Sodium (Synthroid -) 50 mcg PO AM [facility] Last Admin: 08/27/19 06:24 Dose: 50 mcg Losartan Potassium (Cozaar -) 50 mg PO DAILY [facility] Last Admin: 08/27/19 10:20 Dose: 50 mg Metformin HCl (Glucophage Xr -) 1,000 mg PO BIDAC [facility] Last Admin: 08/27/19 06:25 Dose: 1,000 mg Metoprolol Succinate (Toprol Xl -) 50 mg PO DAILY [facility] Last Admin: 08/27/19 10:20 Dose: 50 mg Multivitamins/Minerals/Vitamin C (Tab-A-Vit -) 1 tab PO DAILY [facility] Last Admin: 08/27/19 10:17 Dose: 1 tab Pyrazinamide (Pyrazinamide -) 1,500 mg PO DAILY [facility] Last Admin: 08/26/19 11:58 Dose: 1,500 mg Pyridoxine HCl (Vitamin B6 -) 50 mg PO DAILY [facility] Last Admin: 08/27/19 10:19 Dose: 50 mg Rifampin (Rifadin -) 600 mg PO DAILY [facility] Last Admin: 08/27/19 10:18 Dose: 600 mg Sitagliptin Phosphate (Januvia -) 50 mg PO DAILY@0700 [facility] Last Admin: 08/27/19 06:25 Dose: 50 mg Sodium Chloride (Normal Saline For Inhalation -) 3 ml IH Q6H PRN PRN Reason: COUGH Last Admin: 08/16/19 10:19 Dose: 3 ml A/P Pulmonary Tuberculosis Lactic Acidosis resolved Elevated LFTs likely from R[place] HTN DM Hypothyroidism Anemia - antibiotics per ID - monitor sputum AFB until negative x 3 - monitor LFTs - DVT prophylaxis
[2019-08-27] MEDS: PYRAZINAMIDE 500 MG TABLET PO SCH (13:35)
[2019-08-27 16:54] VITALS: BMI 17.8
[2019-08-28] MEDS ORDERED: PT OWN MED DRAWER 7, Y5N ONE ×3 (05:37→19:35)
[2019-08-28] MEDS: sitaGLIPtin PHOSPHATE 50 MG TABLET PO SCH (06:16)
[2019-08-28] MEDS: LEVOTHYROXINE NA 50 MCG TABLET (FP) PO SCH (06:16)
[2019-08-28 08:36] LABS: ALBUMIN 2.7 g/dl (3.4-5.0); BILIRUBIN,TOTAL 0.5 mg/dL (0.2-1); BLOOD UREA NITROGEN 23.2 mg/dL (7-18); CREATININE 1.5 mg/dL (0.55-1.3); POTASSIUM 5.1 mmol/L (3.5-5.1); TOT PROT 6.7 g/dl (6.4-8.2)
--- NOTE | 2019-08-28 09:11 | PN ---
Progress Note (short form) - Note Progress Note: CBC, BMP 08/24/19 07:18 08/28/19 07:25 Vital Signs Period Temp Pulse Resp BP Sys/Garces Pulse Ox Last 24 Hr 97.5 F-97.8 F 68-78 20-20 111-136/49-61 s1s2 rrr lungs basal rales abs soft no edema denies complaints, poor appetite Pulmonary tuberculosis NIDDM hypothyrodism HTN isolation on TB meds consults appreciated ilan follows, tentative dc saturday daily lft and cbc added januvia for improved sugar control renal fnct better Problem List - Problems (1) Diabetes mellitus Code(s): E11.9 - TYPE 2 DIABETES MELLITUS WITHOUT COMPLICATIONS Qualifiers: Diabetes mellitus type: type 2 Diabetes mellitus plant senior manager insulin use: without plant senior manager use Diabetes mellitus complication status: without complication Qualified Code(s): E11.9 - Type 2 diabetes mellitus without complications (2) HTN (hypertension) Code(s): I10 - ESSENTIAL (PRIMARY) HYPERTENSION Qualifiers: Hypertension type: essential hypertension Qualified Code(s): I10 - Essential (primary) hypertension (3) Hyperlipidemia Code(s): E78.5 - HYPERLIPIDEMIA, UNSPECIFIED Qualifiers: Hyperlipidemia type: unspecified Qualified Code(s): E78.5 - Hyperlipidemia , unspecified (4) Hypothyroidism Code(s): E03.9 - HYPOTHYROIDISM, UNSPECIFIED Qualifiers: Hypothyroidism type: acquired Qualified Code(s): E03.9 - Hypothyroidism, unspecified (5) Cavitary lesion of lung Code(s): J98.4 - OTHER DISORDERS OF LUNG
[2019-08-28] MEDS: ISONIAZID 300 MG TABLET (FP) PO SCH (11:59)
[2019-08-28] MEDS: RIFAMPIN 300 MG CAPSULE PO SCH (11:59)
[2019-08-28] MEDS: PYRAZINAMIDE 500 MG TABLET PO SCH (11:59)
[2019-08-28] MEDS: PYRIDOXINE HCL (B-6) 50 MG TABLET (FP) PO SCH (12:00)
[2019-08-28] MEDS: MULTIVITAMINS (DAILY MVI) TABLET (FP) PO SCH (12:00)
[2019-08-28] MEDS: LOSARTAN POTASSIUM 50 MG TABLET (FP) PO SCH (12:00)
[2019-08-28] MEDS: ETHAMBUTOL HCL 400 MG TABLET PO SCH ×2 (12:01→15:08)
--- NOTE | 2019-08-28 13:30 | PN ---
Progress Note (short form) - Note Progress Note: PULMONARY VSS/AFEBRILE Constitutional: Yes: Calm, Thin Eyes: Yes: WNL HENT: Yes: WNL Neck: Yes: WNL Cardiovascular: Yes: Regular Rate and Rhythm, S1, S2 Respiratory: Yes: CTA Bilaterally Gastrointestinal: Yes: Normal Bowel Sounds, Soft Extremities: Yes: WNL Edema: No Labs: NOTED A/P Pulmonary Tuberculosis Lactic Acidosis HTN DM Hypothyroidism Anemia Hypercalcemia - antibiotics per ID - monitor LFTs,calcium level - DVT prophylaxis Austen CEE MD
--- NOTE | 2019-08-28 14:45 | PN ---
Progress Note (short form) - Note Progress Note: day #16 R[place] no complaints Vital Signs Period Temp Pulse Resp BP Sys/Garces Pulse Ox Last 24 Hr 97.5 F-97.5 F 68-71 20-20 111-136/49-59 cor-rrr lungs clear abd soft,nt ext no edema CBC, BMP 08/24/19 07:18 08/28/19 07:25 Microbiology 08/14/19 14:30 Sputum - Expectorated AFB Smear Concentration - Final 08/14/19 14:30 Sputum - Expectorated Mycobacterial Culture - Preliminary Acid Fast Bacillus 08/11/19 11:20 Sputum - Expectorated AFB Smear Concentration - Final 08/11/19 11:20 Sputum - Expectorated Mycobacterial Culture - Preliminary Mycobacterium Tuberculosis 08/10/19 11:20 Bronchial Washings - Right Lower Lobe AFB Smear Concentration - Final 08/10/19 11:20 Bronchial Washings - Right Lower Lobe Mycobacterial Culture - Preliminary Acid Fast Bacillus 08/19/19 15:16 Sputum - Expectorated AFB Smear Concentration - Preliminary 08/19/19 15:16 Sputum - Expectorated Mycobacterial Culture - Preliminary 08/22/19 11:30 Sputum - Expectorated AFB Smear Concentration - Preliminary 08/22/19 11:30 Sputum - Expectorated Mycobacterial Culture - Preliminary 08/16/19 10:40 Sputum - Aerosol Induced AFB Smear Concentration - Final 08/16/19 10:40 Sputum - Aerosol Induced Mycobacterial Culture - Preliminary 08/12/19 14:30 Blood - Peripheral Venous Blood Culture - Final NO GROWTH AFTER 5 DAYS INCUBATION 08/12/19 14:30 Blood - Peripheral Venous Blood Culture - Final NO GROWTH AFTER 5 DAYS INCUBATION 08/12/19 12:10 Urine - Urine Clean Catch Urine Culture - Final NO GROWTH OBTAINED 08/11/19 11:20 Sputum - Expectorated Gram Stain - Final 08/11/19 11:20 Sputum - Expectorated Sputum Culture - Final NORMAL RESPIRATORY FREDDY 08/10/19 13:05 Bronchial Washings - Right Lower Lobe Gram Stain - Final 08/10/19 13:05 Bronchial Washings - Right Lower Lobe Bronchoalveolar Lavage Culture - Final 08/10/19 11:20 Bronchial Washings - Right Lower Lobe BRISSA Preparation - Preliminary 08/10/19 11:20 Bronchial Washings - Right Lower Lobe Fungal Culture - Preliminary 08/05/19 10:55 Blood - Peripheral Venous Blood Culture - Final NO GROWTH AFTER 5 DAYS INCUBATION 08/05/19 10:55 Blood - Peripheral Venous Blood Culture - Final NO GROWTH AFTER 5 DAYS INCUBATION a/p MTB- RIPE day #16 plan for discharge on Saturday afb isolation to continue in hospital per ABDIRASHID lfts are normalizing ruq US normal DM renal insufficiency- per PMD hep serology negative please call back if needed d/w PMD dr leahy Problem List - Problems (1) Abnormal CT scan, chest Code(s): R93.89 - ABNORMAL FINDINGS ON DX IMAGING OF OTH BODY STRUCTURES (2) Cavitary lesion of lung Code(s): J98.4 - OTHER DISORDERS OF LUNG (3) Diabetes mellitus Code(s): E11.9 - TYPE 2 DIABETES MELLITUS WITHOUT COMPLICATIONS Qualifiers: Diabetes mellitus type: type 2 Diabetes mellitus long wall shear operator insulin use: without long wall shear operator use Diabetes mellitus complication status: without complication Qualified Code(s): E11.9 - Type 2 diabetes mellitus without complications
[2019-08-29] MEDS ORDERED: PT OWN MED DRAWER 7, Y5N ONE (06:00)
[2019-08-29] MEDS: sitaGLIPtin PHOSPHATE 50 MG TABLET PO SCH (06:26)
[2019-08-29] MEDS: LEVOTHYROXINE NA 50 MCG TABLET (FP) PO SCH (06:26)
[2019-08-29 09:47] LABS: BASO % 1.1 % (0-2.0); EOS % 3.1 % (0-4.5); HEMATOCRIT 40.5 % (35.4-49); HEMOGLOBIN 12.9 GM/dL (11.7-16.9); LYMPH % 6.3 % (8-40); MCH 24.9 pg (25.7-33.7); MCHC 31.9 g/dl (32.0-35.9); MEAN CELL VOLUME 78.1 fl (80-96); MEAN PLT VOLUME 8.8 fl (7.5-11.1); MONO % 5.7 % (3.8-10.2); NEUT % 83.8 % (42.8-82.8); PLATELET COUNT 330 K/MM3 (134-434); RBC 5.18 M/mm3 (4.00-5.60); RDW 18.3 % (11.9-15.9); WHITE BLOOD COUNT 11.6 K/mm3 (4.0-10.0)
[2019-08-29 10:09] LABS: ALBUMIN 2.7 g/dl (3.4-5.0); BILIRUBIN,TOTAL 0.4 mg/dL (0.2-1); BLOOD UREA NITROGEN 30.1 mg/dL (7-18); CALCIUM 9.9 mg/dL (8.5-10.1); CREATININE 1.5 mg/dL (0.55-1.3); POTASSIUM 5.2 mmol/L (3.5-5.1); TOT PROT 6.6 g/dl (6.4-8.2)
--- NOTE | 2019-08-29 10:43 | PN ---
Progress Note (short form) - Note Progress Note: No complaints. No fevers recorded. Intake & Output 08/26/19 08/27/19 08/28/19 08/29/19 23:59 23:59 23:59 23:59 Intake Total 200 0 0 Balance 200 0 0 Weight 125 lb 9.6 oz 124 lb 9.6 oz 125 lb 9.6 oz 125 lb 4 oz Last Vital Signs Temp Pulse Resp BP Pulse Ox 98.1 F 71 18 130/57 L 97 08/28/19 22:52 08/28/19 22:52 08/28/19 22:52 08/28/19 22:52 08/26/19 10:00 Active Medications Ethambutol HCl (Myambutol -) 1,200 mg PO DAILY [facility] Last Admin: 08/28/19 15:08 Dose: Not Given Isoniazid (Inh -) 300 mg PO DAILY [facility] Last Admin: 08/28/19 11:59 Dose: 300 mg Levothyroxine Sodium (Synthroid -) 50 mcg PO AM [facility] Last Admin: 08/29/19 06:26 Dose: 50 mcg Losartan Potassium (Cozaar -) 50 mg PO DAILY [facility] Last Admin: 08/28/19 12:00 Dose: 50 mg Metformin HCl (Glucophage Xr -) 1,000 mg PO BIDAC [facility] Last Admin: 08/29/19 06:26 Dose: 1,000 mg Metoprolol Succinate (Toprol Xl -) 50 mg PO DAILY [facility] Last Admin: 08/28/19 12:00 Dose: 50 mg Multivitamins/Minerals/Vitamin C (Tab-A-Vit -) 1 tab PO DAILY [facility] Last Admin: 08/28/19 12:00 Dose: 1 tab Pyrazinamide (Pyrazinamide -) 1,500 mg PO DAILY [facility] Last Admin: 08/28/19 11:59 Dose: 1,500 mg Pyridoxine HCl (Vitamin B6 -) 50 mg PO DAILY [facility] Last Admin: 08/28/19 12:00 Dose: 50 mg Rifampin (Rifadin -) 600 mg PO DAILY [facility] Last Admin: 08/28/19 11:59 Dose: 600 mg Sitagliptin Phosphate (Januvia -) 50 mg PO DAILY@0700 [facility] Last Admin: 08/29/19 06:26 Dose: 50 mg Sodium Chloride (Normal Saline For Inhalation -) 3 ml IH Q6H PRN PRN Reason: COUGH Last Admin: 08/16/19 10:19 Dose: 3 ml Gen: NAD at rest Heart: RRR Lung: decreased breath sounds at the bases Abd: soft, nontender Ext: no edema Laboratory Results - last 24 hr 08/28/19 08/29/19 08/29/19 17:49 06:24 07:45 WBC RBC Hgb Hct MCV MCH MCHC RDW Plt Count MPV Absolute Neuts (auto) Neutrophils % Lymphocytes % Monocytes % Eosinophils % Basophils % Nucleated RBC % Sodium 131 L Potassium 5.2 H Chloride 99 Carbon Dioxide 20 L Anion Gap 11 BUN 30.1 H Creatinine 1.5 H Est GFR (CKD-EPI)AfAm 50.59 Est GFR (CKD-EPI)NonAf 43.65 POC Glucometer 140 138 Random Glucose 203 H Calcium 9.9 Total Bilirubin 0.4 AST 37 ALT 62 H Alkaline Phosphatase 102 Total Protein 6.6 Albumin 2.7 L 08/29/19 07:45 WBC 11.6 H RBC 5.18 Hgb 12.9 Hct 40.5 MCV 78.1 L MCH 24.9 L MCHC 31.9 L RDW 18.3 H Plt Count 330 D MPV 8.8 Absolute Neuts (auto) 9.7 H Neutrophils % 83.8 H Lymphocytes % 6.3 L D Monocytes % 5.7 Eosinophils % 3.1 D Basophils % 1.1 Nucleated RBC % 0 Sodium Potassium Chloride Carbon Dioxide Anion Gap BUN Creatinine Est GFR (CKD-EPI)AfAm Est GFR (CKD-EPI)NonAf POC Glucometer Random Glucose Calcium Total Bilirubin AST ALT Alkaline Phosphatase Total Protein Albumin A/P Pulmonary Tuberculosis: RIPE day#17 Lactic Acidosis resolved Elevated LFTs likely from R[place] HTN DM Hypothyroidism Anemia - RIPE - monitor LFTs - DVT prophylaxis - DC planning Dr Das
[2019-08-29] MEDS: MULTIVITAMINS (DAILY MVI) TABLET (FP) PO SCH (10:48)
[2019-08-29] MEDS: LOSARTAN POTASSIUM 50 MG TABLET (FP) PO SCH (10:48)
[2019-08-29] MEDS: PYRIDOXINE HCL (B-6) 50 MG TABLET (FP) PO SCH (10:49)
[2019-08-29] MEDS: PYRAZINAMIDE 500 MG TABLET PO SCH (10:49)
[2019-08-29] MEDS: RIFAMPIN 300 MG CAPSULE PO SCH (10:49)
[2019-08-29] MEDS: ISONIAZID 300 MG TABLET (FP) PO SCH (10:49)
[2019-08-29] MEDS: ETHAMBUTOL HCL 400 MG TABLET PO SCH (10:50)
--- NOTE | 2019-08-29 12:57 | PN ---
Progress Note (short form) - Note Progress Note: Vital Signs Period Temp Pulse Resp BP Sys/Garces Pulse Ox Last 24 Hr 97.6 F-98.1 F 66-71 18-20 106-130/45-57 Active Medications Ethambutol HCl (Myambutol -) 1,200 mg PO DAILY [facility] Last Admin: 08/29/19 10:50 Dose: 1,200 mg Isoniazid (Inh -) 300 mg PO DAILY [facility] Last Admin: 08/29/19 10:49 Dose: 300 mg Levothyroxine Sodium (Synthroid -) 50 mcg PO AM [facility] Last Admin: 08/29/19 06:26 Dose: 50 mcg Losartan Potassium (Cozaar -) 50 mg PO DAILY [facility] Last Admin: 08/29/19 10:48 Dose: 50 mg Metformin HCl (Glucophage Xr -) 1,000 mg PO BIDAC [facility] Last Admin: 08/29/19 06:26 Dose: 1,000 mg Metoprolol Succinate (Toprol Xl -) 50 mg PO DAILY [facility] Last Admin: 08/29/19 10:48 Dose: 50 mg Multivitamins/Minerals/Vitamin C (Tab-A-Vit -) 1 tab PO DAILY [facility] Last Admin: 08/29/19 10:48 Dose: 1 tab Pyrazinamide (Pyrazinamide -) 1,500 mg PO DAILY [facility] Last Admin: 08/29/19 10:49 Dose: 1,500 mg Pyridoxine HCl (Vitamin B6 -) 50 mg PO DAILY [facility] Last Admin: 08/29/19 10:49 Dose: 50 mg Rifampin (Rifadin -) 600 mg PO DAILY [facility] Last Admin: 08/29/19 10:49 Dose: 600 mg Sitagliptin Phosphate (Januvia -) 50 mg PO DAILY@0700 [facility] Last Admin: 08/29/19 06:26 Dose: 50 mg Sodium Chloride (Normal Saline For Inhalation -) 3 ml IH Q6H PRN PRN Reason: COUGH Last Admin: 08/16/19 10:19 Dose: 3 ml s1s2 rrr lungs cta ant. abs soft no edema denies complaints, poor appetite Pulmonary tuberculosis NIDDM hypothyrodism HTN isolation on TB meds consults appreciated ilan follows, tentative dc saturday Problem List - Problems (1) Diabetes mellitus Code(s): E11.9 - TYPE 2 DIABETES MELLITUS WITHOUT COMPLICATIONS Qualifiers: Diabetes mellitus type: type 2 Diabetes mellitus longterm insulin use: without longterm use Diabetes mellitus complication status: without complication Qualified Code(s): E11.9 - Type 2 diabetes mellitus without complications (2) HTN (hypertension) Code(s): I10 - ESSENTIAL (PRIMARY) HYPERTENSION Qualifiers: Hypertension type: essential hypertension Qualified Code(s): I10 - Essential (primary) hypertension (3) Hyperlipidemia Code(s): E78.5 - HYPERLIPIDEMIA, UNSPECIFIED Qualifiers: Hyperlipidemia type: unspecified Qualified Code(s): E78.5 - Hyperlipidemia , unspecified (4) Hypothyroidism Code(s): E03.9 - HYPOTHYROIDISM, UNSPECIFIED Qualifiers: Hypothyroidism type: acquired Qualified Code(s): E03.9 - Hypothyroidism, unspecified (5) Cavitary lesion of lung Code(s): J98.4 - OTHER DISORDERS OF LUNG
[2019-08-30] MEDS ORDERED: PT OWN MED DRAWER 7, Y5N ONE (05:33)
[2019-08-30] MEDS: LEVOTHYROXINE NA 50 MCG TABLET (FP) PO SCH (06:55)
[2019-08-30] MEDS: sitaGLIPtin PHOSPHATE 50 MG TABLET PO SCH (06:55)
--- NOTE | 2019-08-30 10:01 | PN ---
Progress Note (short form) - Note Progress Note: Vital Signs Period Temp Pulse Resp BP Sys/Garces Pulse Ox Last 24 Hr 97.3 F-98.2 F 70-85 18-20 124-142/56-60 s1s2 rrr lungs cta ant. abs soft no edema denies complaints, poor appetite Pulmonary tuberculosis NIDDM hypothyrodism HTN isolation on TB meds consults appreciated ilan follows, tentative dc tomorrow Problem List - Problems (1) Diabetes mellitus Code(s): E11.9 - TYPE 2 DIABETES MELLITUS WITHOUT COMPLICATIONS Qualifiers: Diabetes mellitus type: type 2 Diabetes mellitus prison insulin use: without prison use Diabetes mellitus complication status: without complication Qualified Code(s): E11.9 - Type 2 diabetes mellitus without complications (2) HTN (hypertension) Code(s): I10 - ESSENTIAL (PRIMARY) HYPERTENSION Qualifiers: Hypertension type: essential hypertension Qualified Code(s): I10 - Essential (primary) hypertension (3) Hyperlipidemia Code(s): E78.5 - HYPERLIPIDEMIA, UNSPECIFIED Qualifiers: Hyperlipidemia type: unspecified Qualified Code(s): E78.5 - Hyperlipidemia , unspecified (4) Hypothyroidism Code(s): E03.9 - HYPOTHYROIDISM, UNSPECIFIED Qualifiers: Hypothyroidism type: acquired Qualified Code(s): E03.9 - Hypothyroidism, unspecified (5) Cavitary lesion of lung Code(s): J98.4 - OTHER DISORDERS OF LUNG
--- NOTE | 2019-08-30 10:34 | PN ---
Progress Note (short form) - Note Progress Note: No complaints. No fevers recorded. Intake & Output 08/27/19 08/28/19 08/29/19 08/30/19 23:59 23:59 23:59 23:59 Intake Total 0 0 650 400 Balance 0 0 650 400 Weight 124 lb 9.6 oz 125 lb 9.6 oz 125 lb 4 oz 124 lb 9 oz Last Vital Signs Temp Pulse Resp BP Pulse Ox 97.3 F L 85 20 142/60 97 08/30/19 07:14 08/30/19 07:14 08/30/19 07:14 08/30/19 07:14 08/29/19 09:00 Active Medications Ethambutol HCl (Myambutol -) 1,200 mg PO DAILY [facility] Last Admin: 08/29/19 10:50 Dose: 1,200 mg Isoniazid (Inh -) 300 mg PO DAILY [facility] Last Admin: 08/29/19 10:49 Dose: 300 mg Levothyroxine Sodium (Synthroid -) 50 mcg PO AM [facility] Last Admin: 08/30/19 06:55 Dose: 50 mcg Losartan Potassium (Cozaar -) 50 mg PO DAILY [facility] Last Admin: 08/29/19 10:48 Dose: 50 mg Metformin HCl (Glucophage Xr -) 1,000 mg PO BIDAC [facility] Last Admin: 08/30/19 06:55 Dose: 1,000 mg Metoprolol Succinate (Toprol Xl -) 50 mg PO DAILY [facility] Last Admin: 08/29/19 10:48 Dose: 50 mg Multivitamins/Minerals/Vitamin C (Tab-A-Vit -) 1 tab PO DAILY [facility] Last Admin: 08/29/19 10:48 Dose: 1 tab Pyrazinamide (Pyrazinamide -) 1,500 mg PO DAILY [facility] Last Admin: 08/29/19 10:49 Dose: 1,500 mg Pyridoxine HCl (Vitamin B6 -) 50 mg PO DAILY [facility] Last Admin: 08/29/19 10:49 Dose: 50 mg Rifampin (Rifadin -) 600 mg PO DAILY [facility] Last Admin: 08/29/19 10:49 Dose: 600 mg Sitagliptin Phosphate (Januvia -) 50 mg PO DAILY@0700 [facility] Last Admin: 08/30/19 06:55 Dose: 50 mg Sodium Chloride (Normal Saline For Inhalation -) 3 ml IH Q6H PRN PRN Reason: COUGH Last Admin: 08/16/19 10:19 Dose: 3 ml Gen: NAD at rest Heart: RRR Lung: decreased breath sounds at the bases Abd: soft, nontender Ext: no edema Laboratory Results - last 24 hr 08/29/19 08/30/19 17:53 06:51 POC Glucometer 138 139 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
[2019-08-30] MEDS: LOSARTAN POTASSIUM 50 MG TABLET (FP) PO SCH (11:21)
[2019-08-30] MEDS: MULTIVITAMINS (DAILY MVI) TABLET (FP) PO SCH (11:21)
[2019-08-30] MEDS: RIFAMPIN 300 MG CAPSULE PO SCH (11:23)
[2019-08-30] MEDS: PYRAZINAMIDE 500 MG TABLET PO SCH (11:24)
[2019-08-30] MEDS: PYRIDOXINE HCL (B-6) 50 MG TABLET (FP) PO SCH (11:24)
[2019-08-30] MEDS: ISONIAZID 300 MG TABLET (FP) PO SCH (11:24)
[2019-08-30] MEDS: ETHAMBUTOL HCL 400 MG TABLET PO SCH (11:25)
[2019-08-30] MEDS ORDERED: FLU VACCINE QUAD 60 MCG/0.5 ML (MDV 19-20) IM ONE (18:52)
[2019-08-31] MEDS ORDERED: PT OWN MED DRAWER 7, Y5N ONE ×2 (05:34→10:11)
[2019-08-31] MEDS: sitaGLIPtin PHOSPHATE 50 MG TABLET PO SCH (06:28)
[2019-08-31] MEDS: LEVOTHYROXINE NA 50 MCG TABLET (FP) PO SCH (06:28)
[2019-08-31 08:25] LABS: EOS % 2.8 % (0-4.5); HEMATOCRIT 38.9 % (35.4-49); HEMOGLOBIN 12.7 GM/dL (11.7-16.9); MCH 25.2 pg (25.7-33.7); MCHC 32.6 g/dl (32.0-35.9); MEAN CELL VOLUME 77.3 fl (80-96); MEAN PLT VOLUME 8.8 fl (7.5-11.1); NEUT % 79.2 % (42.8-82.8); PLATELET COUNT 281 K/MM3 (134-434); RBC 5.03 M/mm3 (4.00-5.60); RDW 19.2 % (11.9-15.9); WHITE BLOOD COUNT 9.1 K/mm3 (4.0-10.0)
[2019-08-31 08:29] LABS: ALBUMIN 2.7 g/dl (3.4-5.0); BILIRUBIN,TOTAL 0.5 mg/dL (0.2-1); BLOOD UREA NITROGEN 27.7 mg/dL (7-18); CALCIUM 9.7 mg/dL (8.5-10.1); CREATININE 1.3 mg/dL (0.55-1.3); POTASSIUM 4.9 mmol/L (3.5-5.1); TOT PROT 6.4 g/dl (6.4-8.2)
--- NOTE | 2019-08-31 08:46 | DS ---
Physical Examination Vital Signs: Vital Signs Temperature 97.5 F L 08/31/19 06:00 Pulse Rate 82 08/31/19 06:00 Respiratory Rate 20 08/31/19 06:00 Blood Pressure 123/58 L 08/31/19 06:00 O2 Sat by Pulse Oximetry (%) 97 08/30/19 10:00 Constitutional: Yes: No Distress, Calm, Thin Eyes: Yes: EOM Intact HENT: Yes: Normocephalic Neck: Yes: Trachea Midline Cardiovascular: Yes: Regular Rate and Rhythm Respiratory: Yes: CTA Bilaterally Gastrointestinal: Yes: Normal Bowel Sounds, Soft Peripheral Pulses WNL: Yes Integumentary: Yes: WNL Neurological: Yes: WNL Labs: CBC, BMP 08/31/19 06:55 08/31/19 06:55 Discharge Summary Problems reviewed: Yes Reason For Visit: CAVITARY LESION OF LUNG Current Active Problems Abnormal CT scan, chest (Acute) Cavitary lesion of lung (Acute) Diabetes mellitus (Acute) HTN (hypertension) (Acute) Hyperlipidemia (Acute) Hypothyroidism (Acute) Pulmonary TB (Acute) Hospital Course: admitted for cavitary lung lesion, bronchoscopy and sputum cultures grew M.TB started antituberculosis medicine, will be followed as outp by [facility] anahi redd for DM regimen for sugar control. Condition: Fair - Instructions Diet, Activity, Other Instructions: [facility] follow up Referrals: Evelyn Narayan MD [Primary Care Provider] - Disposition: HOME - Home Medications Comprehensive Discharge Medication List: Ambulatory Orders Aspirin [Aspirin EC] 81 mg PO DAILY 08/05/19 Ferrous Sulfate [Iron] 325 mg PO DAILY 08/05/19 Levothyroxine Sodium [Levoxyl] 50 mcg PO DAILY 08/05/19 Losartan Potassium 50 mg PO DAILY 08/05/19 Metoprolol Succinate 25 mg PO DAILY 08/05/19 Multivitamin [Multiple Vitamins] 1 each PO DAILY 08/05/19 metFORMIN HCL [Metformin ER Osmotic] 1,000 mg PO DAILY 08/05/19 Ethambutol HCl [Myambutol -] 1,200 mg PO DAILY tablet 08/31/19 Isoniazid [Nydrazid -] 300 mg PO DAILY tablet 08/31/19 Pyrazinamide - 1,500 mg PO DAILY tablet 08/31/19 Pyridoxine HCl (B-6) [Vitamin B6 -] 50 mg PO DAILY tablet 08/31/19 Rifampin [Rifadin -] 600 mg PO DAILY capsule 08/31/19 Sitagliptin Phosphate [Januvia -] 50 mg PO DAILY@0700 #90 tablet 08/31/19
--- NOTE | 2019-08-31 09:43 | PN ---
Progress Note (short form) - Note Progress Note: No complaints. No fevers recorded. Intake & Output 08/28/19 08/29/19 08/30/19 08/31/19 23:59 23:59 23:59 23:59 Intake Total 0 650 1080 200 Balance 0 650 1080 200 Weight 125 lb 9.6 oz 125 lb 4 oz 124 lb 9 oz 122 lb 11.2 oz Last Vital Signs Temp Pulse Resp BP Pulse Ox 97.5 F L 82 20 123/58 L 97 08/31/19 06:00 08/31/19 06:00 08/31/19 06:00 08/31/19 06:00 08/30/19 10:00 Active Medications Ethambutol HCl (Myambutol -) 1,200 mg PO DAILY [facility] Last Admin: 08/30/19 11:25 Dose: 1,200 mg Isoniazid (Inh -) 300 mg PO DAILY [facility] Last Admin: 08/30/19 11:24 Dose: 300 mg Levothyroxine Sodium (Synthroid -) 50 mcg PO AM [facility] Last Admin: 08/31/19 06:28 Dose: 50 mcg Losartan Potassium (Cozaar -) 50 mg PO DAILY [facility] Last Admin: 08/30/19 11:21 Dose: 50 mg Metformin HCl (Glucophage Xr -) 1,000 mg PO BIDAC [facility] Last Admin: 08/31/19 06:28 Dose: 1,000 mg Metoprolol Succinate (Toprol Xl -) 50 mg PO DAILY [facility] Last Admin: 08/30/19 11:21 Dose: 50 mg Multivitamins/Minerals/Vitamin C (Tab-A-Vit -) 1 tab PO DAILY [facility] Last Admin: 08/30/19 11:21 Dose: 1 tab Pyrazinamide (Pyrazinamide -) 1,500 mg PO DAILY [facility] Last Admin: 08/30/19 11:24 Dose: 1,500 mg Pyridoxine HCl (Vitamin B6 -) 50 mg PO DAILY [facility] Last Admin: 08/30/19 11:24 Dose: 50 mg Rifampin (Rifadin -) 600 mg PO DAILY [facility] Last Admin: 08/30/19 11:23 Dose: 600 mg Sitagliptin Phosphate (Januvia -) 50 mg PO DAILY@0700 [facility] Last Admin: 08/31/19 06:28 Dose: 50 mg Sodium Chloride (Normal Saline For Inhalation -) 3 ml IH Q6H PRN PRN Reason: COUGH Last Admin: 08/16/19 10:19 Dose: 3 ml Gen: NAD at rest Heart: RRR Lung: decreased breath sounds at the bases Abd: soft, nontender Ext: no edema Laboratory Results - last 24 hr 08/30/19 08/31/19 08/31/19 17:00 05:51 06:55 WBC 9.1 RBC 5.03 Hgb 12.7 Hct 38.9 MCV 77.3 L MCH 25.2 L MCHC 32.6 RDW 19.2 H Plt Count 281 MPV 8.8 Absolute Neuts (auto) 7.2 Neutrophils % 79.2 Lymphocytes % 10.0 D Monocytes % 7.0 Eosinophils % 2.8 Basophils % 1.0 Nucleated RBC % 0 Sodium Potassium Chloride Carbon Dioxide Anion Gap BUN Creatinine Est GFR (CKD-EPI)AfAm Est GFR (CKD-EPI)NonAf POC Glucometer 154 130 Random Glucose Calcium Total Bilirubin AST ALT Alkaline Phosphatase Total Protein Albumin 08/31/19 06:55 WBC RBC Hgb Hct MCV MCH MCHC RDW Plt Count MPV Absolute Neuts (auto) Neutrophils % Lymphocytes % Monocytes % Eosinophils % Basophils % Nucleated RBC % Sodium 132 L Potassium 4.9 Chloride 100 Carbon Dioxide 20 L Anion Gap 12 BUN 27.7 H Creatinine 1.3 Est GFR (CKD-EPI)AfAm 60.15 Est GFR (CKD-EPI)NonAf 51.90 POC Glucometer Random Glucose 211 H Calcium 9.7 Total Bilirubin 0.5 AST 92 H ALT 73 H Alkaline Phosphatase 96 Total Protein 6.4 Albumin 2.7 L 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
[2019-08-31 09:58] VITALS: BP 124/61; PULSE 79; TEMP 98
[2019-08-31] MEDS: MULTIVITAMINS (DAILY MVI) TABLET (FP) PO SCH (10:23)
[2019-08-31] MEDS: RIFAMPIN 300 MG CAPSULE PO SCH (10:23)
[2019-08-31] MEDS: ISONIAZID 300 MG TABLET (FP) PO SCH (10:23)
[2019-08-31] MEDS: PYRAZINAMIDE 500 MG TABLET PO SCH (10:23)
[2019-08-31] MEDS: LOSARTAN POTASSIUM 50 MG TABLET (FP) PO SCH (10:23)
[2019-08-31] MEDS: PYRIDOXINE HCL (B-6) 50 MG TABLET (FP) PO SCH (10:24)
[2019-08-31] MEDS: ETHAMBUTOL HCL 400 MG TABLET PO SCH (10:24)
== END 2019-08-31 12:57 | disposition home or self-care (01) | DRG 854 ==
LOC: JER 09:58 → JERBED 14:47 → J8W 20:29 → JERBED 08-10 14:28 → J8W 08-10 14:29
PROVIDERS: ADMIT Internal Medicine; ATTEND Internal Medicine
PROC: 0BDF8ZX Extraction of Right Lower Lung Lobe, Via Natural or Artificial Opening Endoscopic, Diagnostic (ICD-10-PCS; 2019-08-10)
PROC: 0BBF8ZX Excision of Right Lower Lung Lobe, Via Natural or Artificial Opening Endoscopic, Diagnostic (ICD-10-PCS; principal; 2019-08-10 13:30)
DX: A31.9 Mycobacterial infection, unspecified (principal); E87.2 Acidosis; Z68.1 Body mass index [BMI] 19.9 or less, adult; A15.0 Tuberculosis of lung; I10 Essential (primary) hypertension; E11.9 Type 2 diabetes mellitus without complications; E03.9 Hypothyroidism, unspecified; E78.5 Hyperlipidemia, unspecified; J98.4 Other disorders of lung; R63.4 Abnormal weight loss; R93.89 Abnormal findings on diagnostic imaging of other specified body structures; D64.9 Anemia, unspecified; R50.9 Fever, unspecified; E83.52 Hypercalcemia; R79.89 Other specified abnormal findings of blood chemistry
CPT/HCPCS: 36415; 71045-TC-FY; 71250-TC; 76705-TC; 80053; 80074; 81003; 82550; 82962; 82977; 83605; 83880; 84484; 85025; 85610; 85730; 86480; 86803; 87040; 87070; 87086; 87116; 87205; 87206; 87556; 88104; 88108; 88305-TC; 93005; 93010; 94760; 97116-GP; 97162-GP; 99283-25; G0008; J7030; Q2036